=== PATIENT | female | born 1940 | race Caucasian/White ===

== ENCOUNTER → 2020-02-07 13:45 | Outpatient (BNVA) | payer MEDICARE, OTHER, SELFPAY | PROVIDERS: Family Provider Family Medicine; Visit Provider Family Medicine | DX: J11.1 Influenza due to unidentified influenza virus with other respiratory manifestations (principal) | CPT/HCPCS: 87804 ==

== ENCOUNTER 2020-08-09 19:45 | Emergency (ER) | payer MEDICARE, OTHER, SELFPAY ==
[2020-08-09 19:51] VITALS: BP 136/70; PULSE 90; RESP 17; O2SAT 95
--- NOTE | 2020-08-09 19:57 | CTR_ITS ---
PROCEDURE INFORMATION: Exam: CT Head Without Contrast Exam date and time: 08/09/2020 8:02 PM Age: 80 years old Clinical indication: Injury or trauma; Fall; Additional info: Head injury TECHNIQUE: Imaging protocol: Computed tomography of the head without contrast. Radiation optimization: All CT scans at this facility use at least one of these dose optimization techniques: automated exposure control; mA and/or kV adjustment per patient size (includes targeted exams where dose is matched to clinical indication); or iterative reconstruction. COMPARISON: No relevant prior studies available. RADIATION DOSE METRICS: Total DLP (mGy-cm): 1079.57 FINDINGS: Brain: Mild atrophy and mild white matter chronic microvascular changes are noted. No hemorrhage or CT evidence of acute infarction is seen. Ventricles: Normal. No ventriculomegaly. Bones/joints: Unremarkable. No acute fracture. Sinuses: Visualized sinuses are unremarkable. No fluid levels. Mastoid air cells: Visualized mastoid air cells are well aerated. Soft tissues: Small right parietal scalp hematoma is appreciated. CT/CT head wo con* [id number] IMPRESSION: No acute intracranial abnormality Radiation Dose CTDIVOL = (mGy): DLP = 1079.57 (mGy-cm)
--- NOTE | 2020-08-09 19:57 | CTR_ITS ---
PROCEDURE INFORMATION: Exam: CT Cervical Spine Without Contrast Exam date and time: 08/09/2020 8:02 PM Age: 80 years old Clinical indication: Injury or trauma; Fall; Initial encounter; Blunt trauma TECHNIQUE: Imaging protocol: Computed tomography images of the cervical spine without contrast. Radiation optimization: All CT scans at this facility use at least one of these dose optimization techniques: automated exposure control; mA and/or kV adjustment per patient size (includes targeted exams where dose is matched to clinical indication); or iterative reconstruction. COMPARISON: No relevant prior studies available. RADIATION DOSE METRICS: Total DLP (mGy-cm): 667 FINDINGS: Vertebrae: [id number] degenerative changes are observed in the cervical spine. No cervical spine fracture is seen. Spinal alignment is normal. Lungs: A 14 mm nodular density is seen in the superior segment of the left lower lobe (partially imaged). CT/CT cervical spin wo con* [id number] IMPRESSION: 1. No cervical spine fracture. 2. Partially imaged left lower lobe 14 mm nodule. Correlate with prior imaging if available, or consider nonemergent CT scan of the thorax for further evaluation. Radiation Dose CTDIVOL = (mGy): DLP = 667 (mGy-cm)
--- NOTE | 2020-08-09 20:01 | ED_ITS ---
HPI - Fall General: Chief Complaint: Fall Stated Complaint: FALL Time Seen by Provider: 08/09/20 19:58 Source: patient and EMS Mode of arrival: EMS Limitations: no limitations History of Present Illness: HPI Narrative: 80-year-old female is here by EMS after a fall. States she fell forward out of her chair and hit her head and has slight headache along with neck pain and right shoulder pain. Patient believes she may have had a seizure after she fell. States her pain is currently a 5 out of 10. MD complaint: fall Associated symptoms-after fall: Reports headache(s) and neck pain; Denies abdominal pain or chest pain Review of Systems Const: Denies: fever(s), chills, body aches or change in appetite Eyes: Denies: blurry vision or eye discomfort ENMT: Denies: throat pain or dental pain Card: Denies: chest pain Resp: Denies: dyspnea GI: Denies: abdominal pain, nausea, vomiting or diarrhea : Denies: dysuria Musc: Reports: neck pain and joint pain; Denies: back pain Skin/Breast: Denies: rash Neuro: Reports: headache(s) Psych: Denies: depression Chapo/Lymph: Denies: easy bruising All/Imm: Denies: urticaria PFSH ED PFSH: Social History (Updated 02/07/20 @ 13:43 by Veronica Kang LPN) Smoking and tobacco status: never smoked Physical Exam Const: COMMON NORMALS: no acute distress, patient oriented x3 and healthy appearing HENMT: COMMON NORMALS: normocephalic and atraumatic HEAD & SCALP: normocephalic and atraumatic Eye: COMMON NORMALS: Equal, round and reactive pupils present and EOMs intact bilaterally PUPIL: Yes Equal, round and reactive pupils present Neck/C-Spine: OTHER: c collar in place Chest: COMMONS NORMALS: normal inspection of the chest and normal palpation of entire chest wall Resp: COMMON NORMALS: normal respiratory effort, No retractions, No use of accessory muscles and clear to auscultation bilaterally AUSCULTATION: clear to auscultation bilaterally Cardio: COMMON NORMALS: regular rate, regular rhythm and No murmurs present (Cardio) RATE: regular rate RHYTHM: regular rhythm GI: COMMON NORMALS: Normal to inspection, nondistended, normoactive bowel sounds present, Soft to palpation, non-tender and no masses PALPATION: Yes Soft to palpation Extremity: COMMON NORMALS: normal to inspection NARRATIVE EXTREMITY EXAM: tenderness over right shoulder Neuro: COMMON NORMALS: patient oriented x3, moves all extremities and no focal motor deficits Psych: COMMON NORMALS: mental status grossly normal, Normal thought process present and cooperative THOUGHT PROCESS: Normal thought process present Skin: COMMON NORMALS: no rashes or lesions noted and no wounds GENERAL SKIN EXAM: no rashes or lesions noted Course Vital Signs: Vital signs: Vital Signs Pulse Rate 70 08/09/20 22:38 Respiratory Rate 16 08/09/20 22:38 Blood Pressure 147/93 08/09/20 22:38 Pulse Oximetry 94 08/09/20 22:38 MDM - Fall MDM Narrative: Medical decision making narrative: Patient presents here after a fall. Head CT along with shoulder x-ray and neck CT are all normal. She has no signs of fractures. Patient is stable for discharge. Patient was able to ambulate here. She is to follow-up with PCP she is to return if worsening. Lab Data: Labs: Lab Results 08/09/20 08/09/20 Range/Units 21:04 21:04 WBC 9.9 (4.0-10.0) 10^3/ uL RBC 4.45 (4.1-5.3) 10^6/u L Hgb 12.0 (11.5-15.3) g/dL Hct 39.8 (37.0-47.0) % MCV 89.4 (81-99) fL MCH 27.0 L (28.0-34.0) pg MCHC 30.2 (30.0-36.0) g/dL RDW 14.6 (12.1-15.1) % Plt Count 277 (130-400) 10^3/c mm MPV 9.2 (7.4-10.4) fL Neut % (Auto) 53.5 % Lymph % (Auto) 35.1 % [place] % (Auto) 6.1 % Eos % (Auto) 3.6 % Baso % (Auto) 0.6 % Neut # (Auto) 5.30 (1.8-7.7) 10^3/u L Lymph # (Auto) 3.5 (0.8-4.8) 10^3/u L [place] # (Auto) 0.6 (0.2-0.9) 10^3/u L Eos # (Auto) 0.4 (0.0-0.8) 10^3/u L Baso # (Auto) 0.1 (0.0-0.1) 10^3/u L Nucleated RBC % (a uto) 0 % Nucleated RBCs # 0.0 /100WBC Sodium 139 (136-145) mmol/L Potassium 3.7 (3.5-5.1) mmol/L Chloride 105 (98-107) mmol/L Carbon Dioxide 25 (22-29) mmol/L Anion Gap 12.7 (5-19) BUN 14 (8-23) mg/dL Creatinine 0.7 (0.5-0.9) mg/dL GFR Calculation Not Reportable Glucose 117 H (65-115) mg/dL Calculated Osmolal ity 285 (285-295) mOsm/k g Calcium 8.3 L (8.5-10.5) mg/dL Imaging Data^: CT Head: Radiologist's impression: [place] [address] CT Scan Report Signed Patient: Sil Diaz Unit #: [id number] : 1940 Age/Sex: 80 / F ADM Date: 08/09/20 Loc: ER Room/Bed: Attending Dr: Ordering Provider/Ordering MD: Ana Luisa Pérez MD Date of Service: 08/09/20 Procedure(s): CT head wo con* [id number] Accession Number(s): [id number] Report Number: [id number] PROCEDURE INFORMATION: Exam: CT Head Without Contrast Exam date and time: 08/09/2020 8:02 PM Age: 80 years old Clinical indication: Injury or trauma; Fall; Additional info: Head injury TECHNIQUE: Imaging protocol: Computed tomography of the head without contrast. Radiation optimization: All CT scans at this facility use at least one of these dose optimization techniques: automated exposure control; mA and/or kV adjustment per patient size (includes targeted exams where dose is matched to clinical indication); or iterative reconstruction. COMPARISON: No relevant prior studies available. RADIATION DOSE METRICS: Total DLP (mGy-cm): 1079.57 FINDINGS: Brain: Mild atrophy and mild white matter chronic microvascular changes are noted. No hemorrhage or CT evidence of acute infarction is seen. Ventricles: Normal. No ventriculomegaly. Bones/joints: Unremarkable. No acute fracture. Sinuses: Visualized sinuses are unremarkable. No fluid levels. Mastoid air cells: Visualized mastoid air cells are well aerated. Soft tissues: Small right parietal scalp hematoma is appreciated. CT/CT head wo con* [id number] IMPRESSION: No acute intracranial abnormality Other CT: Radiologist's impression: [address] [place] [address] CT Scan Report Signed Patient: Sil Diaz Unit #: [id number] : 1940 Age/Sex: 80 / F ADM Date: 08/09/20 Loc: ER Room/Bed: Attending Dr: Ordering Provider/Ordering MD: Ana Luisa Pérez MD Date of Service: 08/09/20 Procedure(s): CT cervical spin wo con* [id number] Accession Number(s): [id number] Report Number: [id number] PROCEDURE INFORMATION: Exam: CT Cervical Spine Without Contrast Exam date and time: 08/09/2020 8:02 PM Age: 80 years old Clinical indication: Injury or trauma; Fall; Initial encounter; Blunt trauma TECHNIQUE: Imaging protocol: Computed tomography images of the cervical spine without contrast. Radiation optimization: All CT scans at this facility use at least one of these dose optimization techniques: automated exposure control; mA and/or kV adjustment per patient size (includes targeted exams where dose is matched to clinical indication); or iterative reconstruction. COMPARISON: No relevant prior studies available. RADIATION DOSE METRICS: Total DLP (mGy-cm): 667 FINDINGS: Vertebrae: Bzbr-qu-yoplichq degenerative changes are observed in the cervical spine. No cervical spine fracture is seen. Spinal alignment is normal. Lungs: A 14 mm nodular density is seen in the superior segment of the left lower lobe (partially imaged). CT/CT cervical spin wo con* [id number] IMPRESSION: 1. No cervical spine fracture. 2. Partially imaged left lower lobe 14 mm nodule. Correlate with prior imaging if available, or consider nonemergent CT scan of the thorax for further evaluation. Discharge Plan Discharge Patient Disposition: Home Clinical Impression: Fall CHI (closed head injury) Qualifiers: Encounter type: initial encounter Qualified Code(s): S09.90XA - Unspecified injury of head, initial encounter Condition: Stable Prescriptions: New Robaxin-750 750 mg tablet 750 mg PO Q6H Qty: 30 RF: 0 Naprosyn 500 mg tablet 500 mg PO BID PRN (Reason: pain) Qty: 20 RF: 0 No Action clopidogrel [Plavix] 75 mg tablet 75 mg PO DAILY RF: 0 atorvastatin 40 mg tablet 40 mg PO QPM RF: 0 citalopram 40 mg tablet 40 mg PO DAILY RF: 0 pantoprazole 40 mg tablet,delayed release (DR/EC) 40 mg PO DAILY RF: 0 lisinopril 30 mg tablet 30 mg PO DAILY RF: 0 Discharge Orders: Discharge Order (Routine); Ordered 08/09/20 Ordered By: Ana Luisa Pérez Referrals: Rios Anaya, [Primary Care Provider] - 1-3 days Discharge Diet: Advance as tolerated Discharge Activity: Resume usual activity Patient Instructions: Minor Head Injury (ED) Discharge Date/Time: 08/09/20 22:39 Coding Level of Care Code ED Stone Setter for Marialuisa Fwd Exam Comprehensive
--- NOTE | 2020-08-09 20:10 | XR_ITS ---
WS: [id number] Right shoulder, 4 views, 08/09/2020 Clinical Data: fall Comparison: None. Findings: No fractures or dislocations are seen. The AC joint shows minimal osteoarthritis.. The adjacent right clavicle, right scapula and ribs are normal. There is interstitial change throughout the right lung which is probably vascular but could be chronic lung fibrosis. There are synovial calcifications rosa cent to the proximal medial humerus.. XR/XR shoulder RT min 2V* [id number] Impression: Negative for fracture or dislocation.
--- NOTE | 2020-08-09 20:10 | XR_ITS ---
WS: [id number] Portable AP upright chest, 08/09/2020 Clinical Data: fall Comparison: PA and lateral chest, 06/05/2010. Findings: The pulmonary vascularity is increased. The heart is normal. There is a 1 cm nodule in the left upper lobe overlying the left fifth rib. The aortic arch and descending aorta show calcification and tortuosity. No pneumonia or pneumothorax is seen. XR/XR chest 1V portable [id number] Impression: 1. 1.0 cm left upper lobe nodule and recommend follow-up PA and lateral chest a nd possible CT scan of the chest. 2. Increased pulmonary vascular congestion. 3. Atherosclerosis.
--- NOTE | 2020-08-09 20:13 | ECG_ITS ---
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 Measurements Intervals [place] Rate: 66 P: 43 CT: 143 QRS: 29 QRSD: 103 T: 48 QT: 417 QTc: 440 Interpretive Statements SINUS RHYTHM No previous ECG available for comparison Electronically Signed On 08-10-2020 14:59:19 CDT by Bernard Wakefield M.D. [id number]
[2020-08-09 20:15] VITALS: BP 138/74; RESP 16; O2SAT 95
[2020-08-09 21:09] LABS: Basophils # 0.1 10^3/uL (0.0-0.1); Basophils % 0.6 %; Eosinophils # 0.4 10^3/uL (0.0-0.8); Eosinophils % 3.6 %; Hematocrit 39.8 % (37.0-47.0); Lymphocytes # 3.5 10^3/uL (0.8-4.8); Lymphocytes % 35.1 %; Mean Corpuscular HGB Conc 30.2 g/dL (30.0-36.0); Mean Corpuscular Volume 89.4 fL (81-99); Mean Platelet Volume 9.2 fL (7.4-10.4); Monocytes # 0.6 10^3/uL (0.2-0.9); Monocytes % 6.1 %; Neutrophils % 53.5 %; Nucleated Red Blood Cells % 0 %; Platelet Count 277 10^3/cmm (130-400); Red Blood Count 4.45 10^6/uL (4.1-5.3); Red Cell Distribution Width 14.6 % (12.1-15.1); White Blood Count 9.9 10^3/uL (4.0-10.0)
[2020-08-09 21:26] LABS: Anion Gap 12.7 (5-19); Blood Urea Nitrogen 14 mg/dL (8-23); Calcium 8.3 mg/dL (8.5-10.5); Carbon Dioxide 25 mmol/L (22-29); Chloride 105 mmol/L (98-107); Glucose 117 mg/dL (65-115); Osmolality Calculated 285 mOsm/kg (285-295); Potassium 3.7 mmol/L (3.5-5.1); Sodium 139 mmol/L (136-145)
--- NOTE | 2020-08-09 21:48 | PC.NURSE ---
AMBULATED PT IN [place] WITH SBA. PT TOLERATES WELL.
[2020-08-09 22:38] VITALS: BP 147/93; PULSE 70; RESP 16; O2SAT 94
== END 2020-08-09 22:39 | disposition home or self-care (01) ==
PROVIDERS: Emergency Provider Emergency Medicine; PCP Family Medicine
DX: S09.8XXA Other specified injuries of head, initial encounter (principal); Z79.02 Long term (current) use of antithrombotics/antiplatelets; W07.XXXA Fall from chair, initial encounter
CPT/HCPCS: 12345; 70450; 71045; 72125; 73030; 80048; 85025; 93005; 99282; 99283

== ENCOUNTER 2021-03-28 19:33 | Observation (INO) | payer MEDICARE, SELFPAY ==
[2021-03-28 20:15] VITALS: BP 134/71; PULSE 81; RESP 18; TEMP 36.7; O2SAT 90; BMI 26.9
--- NOTE | 2021-03-28 21:10 | XRR_ITS ---
PROCEDURE INFORMATION: Exam: XR Chest Exam date and time: 03/28/2021 9:24 PM Age: 81 years old Clinical indication: Cough and fever and shortness of breath; Additional info: SOB TECHNIQUE: Imaging protocol: XR of the chest. Views: 1 view. COMPARISON: ME XR chest 1V portable [id number] 08/09/2020 8:26 PM FINDINGS: Lungs: There is an 11 mm mildly irregular nodularity seen in the left upper hemithorax similar to that seen previously on 08/09/2020. There there is a background pulmonary fibrosis. Additionally, there are patchy opacities present in the lung bases bilaterally and along the right lateral chest wall, findings that may represent a superimposing patchy pneumonia. Pleural spaces: Unremarkable. No pleural effusion. No pneumothorax. Heart/Mediastinum: Unremarkable. No cardiomegaly. Bones/joints: Unremarkable. XR/XR chest 1V portable [id number] IMPRESSION: 1. Probable bilateral basilar infiltrates and pneumonia superimposed over a background of pulmonary fibrosis. Patchy opacity seen in the right lateral hemithorax likely represents infiltrate and pneumonia as well. 2. Irregular nodularity seen in the left upper hemithorax similar to that seen on 08/09/2020. Follow-up CT evaluation is suggested when the patient's acute symptoms have resolved.
--- NOTE | 2021-03-28 21:11 | ECG_ITS ---
[facility] Test Date: 2021-03-28 Pat Name: Sil Diaz Department: Room: Gender: Female Cellophaner: : 1940 Requested By: Maria Antonia Caraballo Order Number: [id number] Terry MD: Bernard Wakefield M.D. Measurements Intervals [place] Rate: 74 P: 21 WV: 125 QRS: 32 QRSD: 106 T: 53 QT: 394 QTc: 438 Interpretive Statements SINUS RHYTHM Compared to ECG 08/09/2020 20:49:52 No significant changes Electronically Signed On 03-29-2021 19:15:44 CDT by Bernard Wakefield M.D. [id number]
[2021-03-28 21:47] VITALS: BP 131/71; PULSE 77; RESP 21; O2SAT 91
--- NOTE | 2021-03-28 21:56 | PC.NURSE ---
patient placed on 2 liters oxygen to maintain spo2 greater than 91%.
[2021-03-28 22:04] LABS: Basophils # 0.1 10^3/uL (0.0-0.1); Basophils % 0.4 %; Eosinophils % 0.1 %; Hematocrit 38.7 % (37.0-47.0); Hemoglobin 11.8 g/dL (11.5-15.3); Lymphocytes # 4.5 10^3/uL (0.8-4.8); Mean Corpuscular HGB Conc 30.5 g/dL (30.0-36.0); Mean Corpuscular Hemoglobin 26.9 pg (28.0-34.0); Mean Corpuscular Volume 88.2 fL (81-99); Mean Platelet Volume 9.1 fL (7.4-10.4); Monocytes # 1.1 10^3/uL (0.2-0.9); Monocytes % 6.8 %; Neutrophils # 10.25 10^3/uL (1.8-7.7); Neutrophils % 64.3 %; Nucleated Red Blood Cells % 0 %; Platelet Count 308 10^3/cmm (130-400); Red Blood Count 4.39 10^6/uL (4.1-5.3); Red Cell Distribution Width 15.2 % (12.1-15.1)
[2021-03-28 22:20] LABS: Alanine Aminotransferase 9 U/L (0-33); Albumin Level 3.7 g/dL (3.5-5.2); Alkaline Phosphatase 134 IU/L (35-105); Anion Gap 16.7 (5-19); Aspartate Amino Transferase 9 U/L (0-32); Blood Urea Nitrogen 14 mg/dL (8-23); Calcium 8.1 mg/dL (8.5-10.5); Carbon Dioxide 23 mmol/L (22-29); Chloride 100 mmol/L (98-107); Globulin 3.8 g/dL (1.3-4.6); Glucose 114 mg/dL (65-115); Osmolality Calculated 283 mOsm/kg (285-295); Potassium 3.7 mmol/L (3.5-5.1); Sodium 136 mmol/L (136-145); Total Bilirubin 0.7 mg/dL (0.15-1.2); Total Protein 7.5 g/dL (6.6-8.7); Troponin(5th) Baseline 13 ng/L (0-10)
[2021-03-28 22:26] LABS: Add Urine Microscopic? YES; Bilirubin Urine 1+ (Negative); Blood Urine 3+ (Negative); Glucose Urine UA Norm (Normal); Ketones Urine 1+ (Negative); Leukocyte Esterase Urine 2+ (Negative); Nitrate Urine Positive (Negative); Protein Urine 1+ (Negative); Urine Appearance Hazy (CLEAR); Urine Color Yellow (Yellow); Urobilinogen Urine 4 mg/dL (Negative); pH Urine 5 (5-7)
[2021-03-28 22:27] LABS: Add Urine Culture? Yes; Bacteria Urine 4+ /hpf; RBC Urine 0-4 /hpf (0-2); WBC Urine >100 /hpf (0-5)
[2021-03-28] MEDS: cefTRIAXone 1,000 MG in sodium chloride 0.9% (plus) 50 ML 100 MG IV (22:45)
[2021-03-28 22:46] VITALS: BP 109/64; PULSE 71; RESP 19; O2SAT 94
[2021-03-28] MEDS: azithromycin 250 mg Tablet 500 MG PO (23:07)
[2021-03-28 23:09] VITALS: BP 117/66; PULSE 72; RESP 18; O2SAT 95
--- NOTE | 2021-03-28 23:10 | ED_ITS ---
HPI - SOB/Dyspnea General: Chief Complaint: Shortness of Breath/Dyspnea Stated Complaint: difficulty breathing/fever Time Seen by Provider: 03/28/21 21:43 Source: patient Mode of arrival: ambulatory Limitations: no limitations History of Present Illness: HPI Narrative: 81-year-old female with complaints of cough, fever, weakness and shortness of breath for the last 2 weeks. De creased appetite, general malaise. No nausea or vomiting. She lives with her daughter who cares for her. She has a history of asthma. No sick contacts. She has not been tested for Covid yet. She does have some pain with coughing, Pertinent past history: asthma Associated symptoms: Reports diaphoresis, fever(s) and orthopnea; Deny abdominal pain, extremity pain, nausea, polydipsia, polyuria or vomiting Review of Systems General: Reports: 10 or more systems reviewed and unremarkable except in HPI and below Const: Reports: fever(s), chills, body aches, change in appetite, fatigue, malaise, night sweats and diaphoresis ENMT: Denies: throat pain Card: Reports: dyspnea on exertion and orthopnea; Denies: edema or swelling of feet/ankles Resp: Reports: dyspnea, productive cough and wheezing GI: Denies: abdominal pain, nausea or vomiting : Reports: urinary frequency; Denies: difficulty voiding or dysuria Musc: Denies: neck pain, back pain, extremity pain or extremity swelling Neuro: Denies: headache(s), numbness in extremities or weakness in extremities Endo: Denies: polyuria, polydipsia or tired all the time Chapo/Lymph: Denies: easy bruising or easy bleeding [facility] ED PFSH: Medical History Cat bite CVA (cerebral vascular accident) Dyslipidemia GERD (gastroesophageal reflux disease) HTN (hypertension) Surgical History H/O lumbar discectomy Family History Other Family history non-contributory Social History Smoking and tobacco status: never smoked Alcohol intake: never Substance/Drug Use: never Housing: House Physical Exam Const: COMMON NORMALS: patient oriented x3 GENERAL APPEARANCE: ill appearing and frail appearing; not diaphoretic and no odor of alcohol detected NUTRITIONAL APPEARANCE: thin HENMT: COMMON NORMALS: normocephalic and atraumatic HEAD & SCALP: normocephalic and atraumatic Eye: COMMON NORMALS: Equal, round and reactive pupils present, EOMs intact bilaterally, conjunctivae normal and no scleral icterus CONJUNCTIVA: Yes conjunctivae normal PUPIL: Yes Equal, round and reactive pupils present Neck/C-Spine: COMMON NORMALS: full ROM, no lymphadenopathy and supple Resp: EFFORT & INSPECTION: Yes tachypneic, Yes Actively coughing and No tracheal deviation AUSCULTATION: rhonchi and wheezes GI: COMMON NORMALS: Normal to inspection, nondistended, normoactive bowel sounds present, Soft to palpation, non-tender and No hepatosplenomegaly present PALPATION: Yes Soft to palpation and Yes No hepatosplenomegaly present Extremity: COMMON NORMALS: normal to inspection, full ROM and capillary refill normal Neuro: COMMON NORMALS: patient oriented x3, CN's II-XII intact bilaterally, moves all extremities and no focal motor deficits Skin: COMMON NORMALS: no rashes or lesions noted, no wounds and turgor normal GENERAL SKIN EXAM: no rashes or lesions noted and turgor normal Course Vital Signs: Vital signs: Vital Signs Temperature 98.0 F 03/29/21 04:00 Pulse Rate 64 03/29/21 04:00 Respiratory Rate 18 03/29/21 04:00 Blood Pressure 103/66 03/29/21 04:00 Pulse Oximetry 92 03/29/21 04:00 MDM - SOB/Dyspnea MDM Narrative: Medical decision making narrative: 81-year-old female with pneumonia and urinary tract infection, acute hypoxia requiring supplemental oxygen. Covid swab negative. IV Rocephin, p.o. Zithromax, DuoNeb treatments, Does not require supplemental 02 at baseline. Discussed the case with Dr Ott. She will be admitted for IV antibiotics and weaning off oxygen. Differential Diagnosis: Shortness of Breath Differential Diagnosis: Likely acute exacerbation of chronic obstructive airways disease and community acquired pneumonia Medical Records: Attestation: I reviewed the patient's medical records. Lab Data: Attestation: I reviewed the patient's lab results. Labs: Lab Results 0403/28/21 03/28/21 Range/Units 21:46 21:54 21:54 WBC 16.0 H (4.0-10.0) 10^3/ uL RBC 4.39 (4.1-5.3) 10^6/u L Hgb 11.8 (11.5-15.3) g/dL Hct 38.7 (37.0-47.0) % MCV 88.2 (81-99) fL MCH 26.9 L (28.0-34.0) pg MCHC 30.5 (30.0-36.0) g/dL RDW 15.2 H (12.1-15.1) % Plt Count 308 (130-400) 10^3/c mm MPV 9.1 (7.4-10.4) fL Neut % (Auto) 64.3 % Lymph % (Auto) 28.0 % Hendry % (Auto) 6.8 % Eos % (Auto) 0.1 % Baso % (Auto) 0.4 % Neut # (Auto) 10.25 H (1.8-7.7) 10^3/u L Lymph # (Auto) 4.5 (0.8-4.8) 10^3/u L Hendry # (Auto) 1.1 H (0.2-0.9) 10^3/u L Eos # (Auto) 0.0 (0.0-0.8) 10^3/u L Baso # (Auto) 0.1 (0.0-0.1) 10^3/u L Nucleated RBC % (a uto) 0 % Nucleated RBCs # 0.0 /100WBC Sodium 136 (136-145) mmol/L Potassium 3.7 (3.5-5.1) mmol/L Chloride 100 (98-107) mmol/L Carbon Dioxide 23 (22-29) mmol/L Anion Gap 16.7 (5-19) BUN 14 (8-23) mg/dL Creatinine 0.7 (0.5-0.9) mg/dL GFR Calculation Not Reportable Glucose 114 (65-115) mg/dL Calculated Osmolal ity 283 L (285-295) mOsm/k g Lactate (0.5-2.2) mmol/L Calcium 8.1 L (8.5-10.5) mg/dL Total Bilirubin 0.7 (0.15-1.2) mg/dL AST 9 (0-32) U/L ALT 9 (0-33) U/L Alkaline Phosphata se 134 H (35-105) IU/L Troponin T Baselin e (0-10) ng/L Troponin T 120 Min squaxin (0-10) ng/L Delta Troponin T (0-10) ABS# Total Protein 7.5 (6.6-8.7) g/dL Albumin 3.7 (3.5-5.2) g/dL Globulin 3.8 (1.3-4.6) g/dL Urine Color Yellow (Yellow) Urine Appearance Hazy A (CLEAR) Urine pH 5 (5-7) Ur Specific Gravit y 1.020 (1.005-1.030) Urine Protein 1+ H (Negative) Urine Glucose (UA) Norm (Normal) Urine Ketones 1+ H (Negative) Urine Blood 3+ H (Negative) Urine Nitrate Positive H (Negative) Urine Bilirubin 1+ H (Negative) Urine Urobilinogen 4 H (Negative) mg/dL Ur Leukocyte Makenzie ase 2+ H (Negative) Urine RBC 0-4 H (0-2) /hpf Urine WBC >100 H (0-5) /hpf Ur Squamous Epith Cells 5-10 H (0-5) /hpf Amorphous Sediment Not Reportable Urine Bacteria 4+ H (NONE) /hpf SARS-CoV-2 Ag (Rap id) (Negative) 03/28/21 03/28/21 03/28/21 Range/Units 21:54 21:54 22:43 WBC (4.0-10.0) 10^3/ uL RBC (4.1-5.3) 10^6/u L Hgb (11.5-15.3) g/dL Hct (37.0-47.0) % MCV (81-99) fL MCH (28.0-34.0) pg MCHC (30.0-36.0) g/dL RDW (12.1-15.1) % Plt Count (130-400) 10^3/c mm MPV (7.4-10.4) fL Neut % (Auto) % Lymph % (Auto) % Hendry % (Auto) % Eos % (Auto) % Baso % (Auto) % Neut # (Auto) (1.8-7.7) 10^3/u L Lymph # (Auto) (0.8-4.8) 10^3/u L Hendry # (Auto) (0.2-0.9) 10^3/u L Eos # (Auto) (0.0-0.8) 10^3/u L Baso # (Auto) (0.0-0.1) 10^3/u L Nucleated RBC % (a uto) % Nucleated RBCs # /100WBC Sodium (136-145) mmol/L Potassium (3.5-5.1) mmol/L Chloride (98-107) mmol/L Carbon Dioxide (22-29) mmol/L Anion Gap (5-19) BUN (8-23) mg/dL Creatinine (0.5-0.9) mg/dL GFR Calculation Glucose (65-115) mg/dL Calculated Osmolal ity (285-295) mOsm/k g Lactate 1.0 (0.5-2.2) mmol/L Calcium (8.5-10.5) mg/dL Total Bilirubin (0.15-1.2) mg/dL AST (0-32) U/L ALT (0-33) U/L Alkaline Phosphata se (35-105) IU/L Troponin T Baselin e 13 H (0-10) ng/L Troponin T 120 Min squaxin (0-10) ng/L Delta Troponin T (0-10) ABS# Total Protein (6.6-8.7) g/dL Albumin (3.5-5.2) g/dL Globulin (1.3-4.6) g/dL Urine Color (Yellow) Urine Appearance (CLEAR) Urine pH (5-7) Ur Specific Gravit y (1.005-1.030) Urine Protein (Negative) Urine Glucose (UA) (Normal) Urine Ketones (Negative) Urine Blood (Negative) Urine Nitrate (Negative) Urine Bilirubin (Negative) Urine Urobilinogen (Negative) mg/dL Ur Leukocyte Makenzie ase (Negative) Urine RBC (0-2) /hpf Urine WBC (0-5) /hpf Ur Squamous Epith Cells (0-5) /hpf Amorphous Sediment Urine Bacteria (NONE) /hpf SARS-CoV-2 Ag (Rap id) Negative (Negative) 03/28/21 Range/Units 23:41 WBC (4.0-10.0) 10^3/ uL RBC (4.1-5.3) 10^6/u L Hgb (11.5-15.3) g/dL Hct (37.0-47.0) % MCV (81-99) fL MCH (28.0-34.0) pg MCHC (30.0-36.0) g/dL RDW (12.1-15.1) % Plt Count (130-400) 10^3/c mm MPV (7.4-10.4) fL Neut % (Auto) % Lymph % (Auto) % Hendry % (Auto) % Eos % (Auto) % Baso % (Auto) % Neut # (Auto) (1.8-7.7) 10^3/u L Lymph # (Auto) (0.8-4.8) 10^3/u L Hendry # (Auto) (0.2-0.9) 10^3/u L Eos # (Auto) (0.0-0.8) 10^3/u L Baso # (Auto) (0.0-0.1) 10^3/u L Nucleated RBC % (a uto) % Nucleated RBCs # /100WBC Sodium (136-145) mmol/L Potassium (3.5-5.1) mmol/L Chloride (98-107) mmol/L Carbon Dioxide (22-29) mmol/L Anion Gap (5-19) BUN (8-23) mg/dL Creatinine (0.5-0.9) mg/dL GFR Calculation Glucose (65-115) mg/dL Calculated Osmolal ity (285-295) mOsm/k g Lactate (0.5-2.2) mmol/L Calcium (8.5-10.5) mg/dL Total Bilirubin (0.15-1.2) mg/dL AST (0-32) U/L ALT (0-33) U/L Alkaline Phosphata se (35-105) IU/L Troponin T Baselin e (0-10) ng/L Troponin T 120 Min squaxin 11.52 H (0-10) ng/L Delta Troponin T -1.48 L (0-10) ABS# Total Protein (6.6-8.7) g/dL Albumin (3.5-5.2) g/dL Globulin (1.3-4.6) g/dL Urine Color (Yellow) Urine Appearance (CLEAR) Urine pH (5-7) Ur Specific Gravit y (1.005-1.030) Urine Protein (Negative) Urine Glucose (UA) (Normal) Urine Ketones (Negative) Urine Blood (Negative) Urine Nitrate (Negative) Urine Bilirubin (Negative) Urine Urobilinogen (Negative) mg/dL Ur Leukocyte Makenzie ase (Negative) Urine RBC (0-2) /hpf Urine WBC (0-5) /hpf Ur Squamous Epith Cells (0-5) /hpf Amorphous Sediment Urine Bacteria (NONE) /hpf SARS-CoV-2 Ag (Rap id) (Negative) EKG Data^: EKG 1: Attestation: I personally reviewed and interpreted this EKG as follows: EKG Interpretation Date: 03/28/21 EKG interpretation time: 21:55 Interpretation: Normal sinus rhythm with a rate of 74, AL 125, QRS 106, QTc 421, normal axis. No ST segment elevation or depression. 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
--- NOTE | 2021-03-28 23:11 | ECG_ITS ---
[facility] Test Date: 2021-03-28 Pat Name: Sil Diaz Department: Room: Gender: Female Counter Server: : 1940 Requested By: Maria Antonia Caraballo Order Number: [id number] Terry MD: Bernard Wakefield M.D. Measurements Intervals [place] Rate: 66 P: 15 MI: 136 QRS: 18 QRSD: 102 T: 45 QT: 418 QTc: 439 Interpretive Statements SINUS RHYTHM WITH SINUS ARRHYTHMIA Compared to ECG 03/28/2021 21:52:27 No significant changes Electronically Signed On 03-29-2021 19:18:54 CDT by Bernard Wakefield M.D. [id number]
[2021-03-28 23:17] LABS: SARS Covid-2 Antigen Negative (Negative)
[2021-03-29] VITALS (19 sets, daily range): BP systolic 99–145; BP diastolic 54–79; PULSE 63–87; RESP 16–24; TEMP 36.7–37.2; O2SAT 88–100
[2021-03-29 00:04] LABS: Troponin 5 2HR 11.52 ng/L (0-10)
[2021-03-29 00:06] LABS: Troponin 5 2HR Delta -1.48 ABS# (0-10)
--- NOTE | 2021-03-29 00:48 | P.HP_ITS ---
Providers/Chief Complaint Primary Care Provider: Rios Anaya DO Chief Complaint: difficulty breathing/fever History of Present Illness Sil Diaz is a 81 year old female who presented today with chief complaint of shortness of breath. Patient is stating that her symptoms started 2 weeks ago, she has been experiencing productive cough, bringing up greenish sputum, she also noticed fever 101 last week, no diarrhea however endorsing urinary urgency and frequency. She does inhale vap. No use of alcohol, denies smoking. She does not use any oxygen at home, her symptoms have been gradually getting worse and today she decided to come to the hospital for worsening of shortness of breath. She is denying chest pain, diarrhea, headache, vomiting or nausea. Diagnostics in the ER revealed sepsis secondary to right-sided lower lobe pneumonia and UTI she has been given ceftriaxone and azithromycin ABG revealed hypoxia on 2 L nasal cannula Chest x-ray consistent with left pulmonary nodule and pneumonia along fibrotic changes Review of Systems Const: Reports: fever(s), chills, body aches, change in appetite and fatigue Eyes: Denies: change in vision ENMT: Denies: throat pain Card: Reports: dyspnea on exertion; Denies: chest pain Resp: Reports: dyspnea and productive cough GI: Denies: abdominal pain : Reports: urinary frequency, urinary urgency, dribbling and nocturia; Denies: flank pain Musc: Denies: neck pain Skin/Breast: Denies: rash Neuro: Denies: headache(s) Psych: Denies: anxiety Endo: Reports: polyuria Chapo/Lymph: Denies: easy bruising All/Imm: Denies: urticaria Medications/Allergies Home Medications Medication Instructions Recorded Confirmed Last Taken Type clopidogrel 75 mg tablet 75 mg PO DAILY 02/07/20 08/09/20 08/08/20 History atorvastatin 40 mg PO QPM 08/09/20 08/09/20 08/08/20 History citalopram 40 mg PO DAILY 08/09/20 08/09/20 08/08/20 History lisinopril 30 mg PO DAILY 08/09/20 08/09/20 08/08/20 History methocarbamol [Robaxin-750] 750 mg PO Q6H #30 tab 08/09/20 Unknown Rx naproxen [Naprosyn] 500 mg PO BID PRN #20 tab 08/09/20 Unknown Rx pantoprazole 40 mg PO DAILY 08/09/20 08/09/20 08/08/20 History Allergies Allergy/AdvReac Type Severity Reaction Status Date / Time Sulfa (Sulfonamide Allergy RASH Verified 08/09/20 20:53 Antibiotics) PFSH Acute PFSH: Medical History Cat bite CVA (cerebral vascular accident) Dyslipidemia GERD (gastroesophageal reflux disease) HTN (hypertension) Surgical History H/O lumbar discectomy Family History Other Family history non-contributory Social History Smoking and tobacco status: never smoked Alcohol intake: never Substance/Drug Use: never Housing: House Vitals/I&O/Wt Last Vital Signs Temp 98.0 F 03/28/21 20:15 Pulse 72 03/28/21 23:09 Resp 18 03/28/21 23:09 BP 117/66 03/28/21 23:09 Pulse Ox 95 03/28/21 23:09 03/28/21 03/28/21 03/29/21 14:59 22:59 06:59 Intake Total 50 / 50 Balance 50 / 50 Weight last 48 hrs Weight 62.596 kg Physical Exam Narrative: EXAM NARRATIVE: elderly female Was saturating well on 4 L nasal cannula No active chest pain shortness of breath abdominal pain Alert, awake oriented x3 GCS 15 No neurological deficit S1, S2 no murmur appreciated Bilateral breath sounds with rhonchi and crepitations, worse at the base Lower extremity no edema gangrene or ulcer Abdomen soft nontender Appropriate mood and affect Very pleasant during my evaluation Data : 03/28/21 21:54 03/28/21 21:54 A&P Assessment and plan (1) CAP (community acquired pneumonia): Status: Acute (2) UTI (urinary tract infection): Status: Acute (3) Acute respiratory failure with hypoxia: Status: Acute Additional A&P Information Sepsis secondary to pneumonia Criteria met with tachypnea, leukocytosis, We will start her on ceftriaxone and azithromycin requested blood culture, urine culture and urine antigens We will keep her on DuoNeb and 4 L nasal cannula oxygen supplementation for now Will need home O2 evaluation before discharge Chest x-ray consistent with fibrotic changes, left-sided pulmonary nodule has extensive smoking history, currently using vape, 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, COVID-19 antigen negative, malignancy not ruled out UTI Patient endorsing urinary frequency and urgency Currently on ceftriaxone Abnormal UA reviewed Creatinine normal Acute hypoxic respiratory failure Secondary to pneumonia with underlying fibrosis Home O2 evaluation, DuoNeb every 4 hours as needed Currently saturating well on 4 L nasal cannula Patient was counseled to quit vaping Full code Cardiac diet DVT prophylaxis Lovenox Attestations Medical Necessity Statement*: Anticipating stay in the hospital cross less than 2 midnights for UTI, sepsis and pneumonia Time Spent in Patient Care: 35mins Coding Level of Care Code 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
[2021-03-29 01:11] LABS: ABG PCO2 36.8 mmHg (35-45); ABG PH Result 7.43 (7.35-7.45); Alveolar-Arterial Oxygen Gradi 11.5 mmHg (5-10); Arterial Blood Gas Hematocrit 34.4 % (37-47); Base Excess ABG 0.1 mmol/L (-2.0-2.0); Blood Gas Allen Test Pos; Blood Gas Sample Site Radial, right; Blood Gas Sample Type Arterial; Carboxyhemoglobin 0.8 %THgb (0.4-20.1); HCO3 ABG 24.2 mmol/L (22-26); HGB O2 Sat 91.9 % (95-100); Ionized Calcium Level - ABG 1.1 mmol/L (1.1-1.4); Methemoglobin 0.4 % (0.4-1.5); Oxygen Device NC; PO2 ABG 65.8 mmHg (80.0-100.0); Potassium Level - ABG 3.6 mmol/L (3.5-5.0); Total Hemoglobin 11.2 g/dL (12-16)
[2021-03-29] MEDS: ipratropium-albuterol 3 mL Neb INHALATION ×4 (01:24→20:45)
[2021-03-29 02:49] LABS: Basophils # 0.1 10^3/uL (0.0-0.1); Basophils % 0.4 %; Eosinophils # 0.1 10^3/uL (0.0-0.8); Eosinophils % 0.4 %; Hematocrit 35.5 % (37.0-47.0); Hemoglobin 10.8 g/dL (11.5-15.3); Lymphocytes # 5.2 10^3/uL (0.8-4.8); Lymphocytes % 38.1 %; Mean Corpuscular HGB Conc 30.4 g/dL (30.0-36.0); Mean Corpuscular Hemoglobin 27.3 pg (28.0-34.0); Mean Corpuscular Volume 89.6 fL (81-99); Mean Platelet Volume 9.1 fL (7.4-10.4); Monocytes # 0.9 10^3/uL (0.2-0.9); Monocytes % 6.5 %; Neutrophils # 7.45 10^3/uL (1.8-7.7); Neutrophils % 54.1 %; Nucleated Red Blood Cells % 0 %; Platelet Count 287 10^3/cmm (130-400); Red Blood Count 3.96 10^6/uL (4.1-5.3); White Blood Count 13.8 10^3/uL (4.0-10.0)
[2021-03-29 03:07] LABS: Troponin 5 6HR 13.04 ng/L (0-10); Troponin 5 6HR Delta 0.04 ng/L (0-12)
--- NOTE | 2021-03-29 03:11 | ECG_ITS ---
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 Measurements Intervals [place] Rate: 67 P: 23 AR: 138 QRS: 46 QRSD: 98 T: 57 QT: 409 QTc: 433 Interpretive Statements SINUS RHYTHM Compared to ECG 03/28/2021 23:36:29 Sinus arrhythmia no longer present Electronically Signed On 04-07-2021 12:30:00 CDT by Steffi Cuevas M.D. [email or web address] [email or web address]/[id number]
[2021-03-29] MEDS: enoxaparin 40 mg/0.4 mL Syringe SUBCUT (05:34)
[2021-03-29] MEDS: lisinopril 10 mg Tablet 30 MG PO (08:31)
[2021-03-29] MEDS: pantoprazole DR 40 mg Tablet PO (08:31)
[2021-03-29] MEDS: clopidogrel 75 mg Tablet PO (08:31)
--- NOTE | 2021-03-29 15:10 | PM.PN ---
Vitals/I&O/Wt Last Vital Signs Temp 98.7 F 03/29/21 11:59 Pulse 73 03/29/21 11:59 Resp 17 03/29/21 11:59 BP 145/79 03/29/21 11:59 Pulse Ox 93 03/29/21 11:59 03/29/21 03/29/21 03/29/21 06:59 14:59 22:59 Intake Total 110 / 110 480 / 480 Output Total 300 / 300 Balance 110 / 110 180 / 180 Weight last 48 hrs Weight 62.596 kg Physical Exam Const: COMMON NORMALS: patient oriented x3 HENMT: COMMON NORMALS: normocephalic and atraumatic HEAD & SCALP: normocephalic and atraumatic Chest: CHEST: Yes Symmetrical chest wall rise Resp: EFFORT & INSPECTION: Yes symmetric chest movement OTHER: Bilateral wheezing, bilateral rhonchi, fine inspiratory crackles present in both lung styles Cardio: COMMON NORMALS: regular rate, regular rhythm, S1 normal heart sound present and S2 normal heart sound present RATE: regular rate RHYTHM: regular rhythm HEART SOUNDS: S1 normal heart sound present and S2 normal heart sound present OTHER: Ejection systolic murmur present in right second intercostal space GI: COMMON NORMALS: Normal to inspection, nondistended, normoactive bowel sounds present, Soft to palpation, non-tender, No hepatosplenomegaly present and no masses AUSCULTATION: Yes normoactive bowel sounds PALPATION: Yes Soft to palpation and Yes No hepatosplenomegaly present RECTAL EXAM: deferred Extremity: COMMON NORMALS: no clubbing, cyanosis or edema and no pedal edema Neuro: COMMON NORMALS: patient oriented x3 Data : 03/29/21 02:32 03/28/21 21:54 Micro: Microbiology 03/29/21 02:32 Blood Culture - Preliminary Blood SPECIMEN COLLECTED 03/29/21 02:30 Blood Culture - Preliminary Blood SPECIMEN COLLECTED 03/28/21 21:46 Legionella Urinary Antigen - Final Urine,Voided Bacterial Antigens - Final A&P Assessment and plan (1) CAP (community acquired pneumonia): Patient came in with worsening shortness of breath, cough, fever, increasing oxygen requirement , do not use supplemental oxygen at home, currently she is requiring 4 Ls oxygen through nasal cannula. Continue ceftriaxone and azithromycin. Status: Acute Qualifiers: Laterality: unspecified laterality Qualified Code(s): J18.9 - Pneumonia, unspecified organism (2) Sepsis: Sepsis secondary to pneumonia: Blood culture: Urine Legionella antigen: Negative Urine bacterial antigen: Negative Lactic acid:1.0 Procalcitonin: Status: Acute (3) UTI (urinary tract infection): Status: Acute Qualifiers: Hematuria presence: with hematuria Urinary tract infection type: site unspecified Qualified Code(s): N39.0 - Urinary tract infection, site not specified; R31.9 - Hematuria, unspecified (4) Acute respiratory failure with hypoxia: Status: Acute Additional A&P Information Sepsis secondary to pneumonia Criteria met with tachypnea, leukocytosis, We will start her on ceftriaxone and azithromycin requested blood culture, urine culture and urine antigens We will keep her on DuoNeb and 4 L nasal cannula oxygen supplementation for now Will need home O2 evaluation before discharge Chest x-ray consistent with fibrotic changes, left-sided pulmonary nodule has extensive smoking history, currently using vape, 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, COVID-19 antigen negative, malignancy not ruled out UTI Patient endorsing urinary frequency and urgency Currently on ceftriaxone Abnormal UA reviewed Creatinine normal Acute hypoxic respiratory failure Secondary to pneumonia with underlying fibrosis Home O2 evaluation, DuoNeb every 4 hours as needed Currently saturating well on 4 L nasal cannula Patient was counseled to quit vaping Full code Cardiac diet DVT prophylaxis Lovenox Attestations Medical Necessity Statement*: Patient needs to in hospital for management of sepsis secondary pneumonia Coding Level of Care Code Acute 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
[2021-03-29] MEDS: atorvastatin 40 mg Tablet PO (17:23)
--- NOTE | 2021-03-29 19:00 | PC.NURSE ---
Report to Kailey ROBLES at this time.
[2021-03-29] MEDS: azithromycin 250 mg Tablet 500 MG PO (23:22)
[2021-03-29] MEDS: cefTRIAXone 1,000 MG in sodium chloride 0.9% (plus) 50 ML 100 MG IV (23:22)
[2021-03-30] VITALS (10 sets, daily range): BP systolic 94–137; BP diastolic 60–68; PULSE 64–88; RESP 15–24; TEMP 36.4–37.5; O2SAT 88–100
[2021-03-30] MEDS: enoxaparin 40 mg/0.4 mL Syringe SUBCUT (05:47)
[2021-03-30 06:24] LABS: Basophils % 0.3 %; Eosinophils # 0.1 10^3/uL (0.0-0.8); Hematocrit 34.4 % (37.0-47.0); Hemoglobin 10.5 g/dL (11.5-15.3); Lymphocytes % 34.4 %; Mean Corpuscular HGB Conc 30.5 g/dL (30.0-36.0); Mean Corpuscular Hemoglobin 27.1 pg (28.0-34.0); Mean Corpuscular Volume 88.7 fL (81-99); Mean Platelet Volume 9.6 fL (7.4-10.4); Monocytes # 0.9 10^3/uL (0.2-0.9); Monocytes % 8.1 %; Neutrophils # 6.46 10^3/uL (1.8-7.7); Neutrophils % 55.9 %; Nucleated Red Blood Cells % 0 %; Platelet Count 280 10^3/cmm (130-400); Red Blood Count 3.88 10^6/uL (4.1-5.3); Red Cell Distribution Width 15.1 % (12.1-15.1); White Blood Count 11.6 10^3/uL (4.0-10.0)
[2021-03-30 07:17] LABS: Procalcitonin 0.07 ng/mL (0-0.5)
[2021-03-30 07:28] LABS: Anion Gap 13.2 (5-19); Blood Urea Nitrogen 18 mg/dL (8-23); Calcium 8.3 mg/dL (8.5-10.5); Carbon Dioxide 21 mmol/L (22-29); Chloride 105 mmol/L (98-107); Glucose 92 mg/dL (65-115); Osmolality Calculated 282 mOsm/kg (285-295); Potassium 4.2 mmol/L (3.5-5.1); Sodium 135 mmol/L (136-145)
[2021-03-30] MEDS: clopidogrel 75 mg Tablet PO (08:04)
[2021-03-30] MEDS: pantoprazole DR 40 mg Tablet PO (08:04)
[2021-03-30] MEDS: lisinopril 10 mg Tablet 30 MG PO (08:04)
--- NOTE | 2021-03-30 12:44 | PM.PN ---
Vitals/I&O/Wt Last Vital Signs Temp 97.8 F 03/30/21 12:00 Pulse 69 03/30/21 12:00 Resp 15 03/30/21 12:00 BP 94/60 03/30/21 12:00 Pulse Ox 96 03/30/21 12:00 03/29/21 03/30/21 03/30/21 22:59 06:59 14:59 Intake Total 480 / 960 50 / 1010 360 / 360 Output Total 0 / 300 200 / 500 200 / 200 Balance 480 / 660 -150 / 510 160 / 160 Weight last 48 hrs Weight 62.596 kg Physical Exam Const: COMMON NORMALS: patient oriented x3 HENMT: COMMON NORMALS: normocephalic and atraumatic HEAD & SCALP: normocephalic and atraumatic Chest: CHEST: Yes Symmetrical chest wall rise Resp: EFFORT & INSPECTION: Yes symmetric chest movement OTHER: Bilateral wheezing, bilateral rhonchi, fine inspiratory crackles initially present in both lung styles has improved. Cardio: COMMON NORMALS: regular rate, regular rhythm, S1 normal heart sound present and S2 normal heart sound present RATE: regular rate RHYTHM: regular rhythm HEART SOUNDS: S1 normal heart sound present and S2 normal heart sound present OTHER: Ejection systolic murmur present in right second intercostal space GI: COMMON NORMALS: Normal to inspection, nondistended, normoactive bowel sounds present, Soft to palpation, non-tender, No hepatosplenomegaly present and no masses AUSCULTATION: Yes normoactive bowel sounds PALPATION: Yes Soft to palpation and Yes No hepatosplenomegaly present RECTAL EXAM: deferred Extremity: COMMON NORMALS: no clubbing, cyanosis or edema and no pedal edema Neuro: COMMON NORMALS: patient oriented x3 Data : 03/30/21 05:47 03/30/21 05:47 Micro: Microbiology 03/29/21 02:32 Blood Culture - Preliminary Blood NEGATIVE TO DATE 03/29/21 02:30 Blood Culture - Preliminary Blood NEGATIVE TO DATE A&P Assessment and plan (1) CAP (community acquired pneumonia): Patient came in with worsening shortness of breath, cough, fever, increasing oxygen requirement , do not use supplemental oxygen at home, currently she is requiring 4 Ls oxygen through nasal cannula. Continue ceftriaxone and azithromycin. Status: Acute Qualifiers: Laterality: unspecified laterality Qualified Code(s): J18.9 - Pneumonia, unspecified organism (2) Sepsis: Sepsis secondary to pneumonia: Blood culture:NTD Urine Legionella antigen: Negative Urine bacterial antigen: Negative Lactic acid:1.0 Procalcitonin:0.07 Status: Acute (3) UTI (urinary tract infection): Urine culture: GNR Status: Acute Qualifiers: Hematuria presence: with hematuria Urinary tract infection type: site unspecified Qualified Code(s): N39.0 - Urinary tract infection, site not specified; R31.9 - Hematuria, unspecified (4) Acute respiratory failure with hypoxia: Status: Acute (5) Heart murmur: Ejection systolic murmur present in right second intercostal space. Follow 2D echo; Status: Acute Additional A&P Information Sepsis secondary to pneumonia Criteria met with tachypnea, leukocytosis, We will start her on ceftriaxone and azithromycin requested blood culture, urine culture and urine antigens We will keep her on DuoNeb and 4 L nasal cannula oxygen supplementation for now Will need home O2 evaluation before discharge Chest x-ray consistent with fibrotic changes, left-sided pulmonary nodule has extensive smoking history, currently using vape, 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, COVID-19 antigen negative, malignancy not ruled out UTI Patient endorsing urinary frequency and urgency Currently on ceftriaxone Abnormal UA reviewed Creatinine normal Acute hypoxic respiratory failure Secondary to pneumonia with underlying fibrosis Home O2 evaluation, DuoNeb every 4 hours as needed Currently saturating well on 4 L nasal cannula Patient was counseled to quit vaping Full code Cardiac diet DVT prophylaxis Lovenox Attestations Medical Necessity Statement*: Patient needs to be in hospital for management of pneumonia and sepsis. 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
--- NOTE | 2021-03-30 15:12 | USCV_ITS ---
Sil Diaz Age: 81 Gender: F : 1940 Exam Date: 03/30/2021 10:59 Ordering Phys: Nilay Barfield MD Technologist: Yanet Peralta Exam Location: [facility] Indication: Shortness of breath BP: 106 / 62 HR: 66 Rhythm: Sinus Technical Quality: Fair MEASUREMENTS (Male / Female) Normal Values 2D ECHO LV Diastolic Diameter PLAX 3.8 cm 4.2 - 5.9 / 3.9 - 5.3 cm LV Systolic Diameter PLAX 2.7 cm LV Chamber Size 2.9 cm IVS Diastolic Thickness 1.7 cm 0.6 - 1.0 / 0.6 - 0.9 cm IVS Systolic Thickness 1.9 cm LVPW Diastolic Thickness 1.0 cm 0.6 - 1.0 / 0.6 - 0.9 cm LVPW Systolic Thickness 1.2 cm RV Chamber Size 2.0 cm LVOT Diameter 1.8 cm LV Ejection Fraction 2D Teich 56.5 % LV Ejection Fraction MOD 2C 55.2 % LV Ejection Fraction 2C AL 57.9 % LA Diameter 2.9 cm LA Width 2.9 cm LA Height 4.4 cm RA Width 1.7 cm RA Height 3.5 cm Aorta at Sinotubular Diameter 1.2 cm M-MODE LV Diastolic Diameter MM 4.2 cm 4.2 - 5.9 / 3.9 - 5.3 cm LV Systolic Diameter MM 3.1 cm LV Ejection Fraction MM Teich 52.6 % IVS Diastolic Thickness MM 1.1 cm 0.6 - 1.0 / 0.6 - 0.9 cm IVS Systolic Thickness MM 1.4 cm LVPW Diastolic Thickness MM 1.2 cm 0.6 - 1.0 / 0.6 - 0.9 cm LVPW Systolic Thickness MM 1.9 cm Aortic Annulus Diameter 2.9 cm LA Ao Ratio MM 1.0 MV E Point Septal Separation 0.8 cm DOPPLER AV Peak Velocity 147.0 cm/s LVOT Peak Velocity 91.0 cm/s AV Area Cont Eq vti 1.9 cm squared AV Area Cont Eq pk 1.6 cm squared MV Area PHT 3.3 cm squared Mitral E to A Ratio 0.8 MV E' Velocity 47.0 cm/s Mitral E to MV E' Ratio 13.7 Mitral E to LV E' Lateral Ratio 12.3 Mitral E to LV E' Septal Ratio 15.3 TV Peak E Velocity 56.0 cm/s Right Atrial Pressure 3.0 mmHg PV Peak Velocity 59.0 cm/s RV Acceleration Time 0.1 s RV Ejection Time 0.3 s RV AcT/ET 0.3 FINDINGS Left Ventricle Normal left ventricular cavity size. Normal left ventricular systolic function. No regional wall motion abnormalities. Left ventricular ejection fraction is estimated at 60 %. Grade I/IV diastolic dysfunction (abnormal relaxation filling pattern), normal to mildly elevated filling pressures. Right Ventricle Normal right ventricular size. RVSP could not be calculated due to incomplete tricuspid regurgitation velocity profile. Right Atrium The right atrium is normal in size. Left Atrium Moderately increased left atrial size. Mitral Valve Moderately thickened mitral valve. No mitral valve stenosis. Mild mitral valve regurgitation. Aortic Valve Moderate aortic valve calcification. Moderate aortic valve stenosis, mean gradient 4.6 mmHg, SAHIL 1.9 cm squared. Trace aortic valve regurgitation. Tricuspid Valve Structurally normal tricuspid valve without significant stenosis or regurgitation. Pulmonary artery systolic pressure is normal. Pulmonic Valve Structurally normal pulmonic valve without significant stenosis. There is no pulmonic regurgitation. Pericardium Normal pericardium without effusion. Aorta Normal ascending aorta dimension. CONCLUSIONS 1-Normal left ventricular cavity size. Normal left ventricular systolic function. No regional wall motion abnormalities. Left ventricular ejection fraction is estimated at 60 %. Grade I/IV diastolic dysfunction (abnormal relaxation filling pattern), normal to mildly elevated filling pressures. 2-Moderately thickened mitral valve. No mitral valve stenosis. Mild mitral valve regurgitation. 3-Normal right ventricular size. RVSP could not be calculated due to incomplete tricuspid regurgitation velocity profile. 4-Right atrial pressure is around 5 mm of mercury. 5-There are no prior echocardiogram studies to compare. Nigel Riojas MD (Electronically Signed) Final Date: 30 Mar 2021 23:33 S
[2021-03-30] MEDS: ipratropium-albuterol 3 mL Neb INHALATION (15:20)
[2021-03-30] MEDS: atorvastatin 40 mg Tablet PO (17:47)
--- NOTE | 2021-03-30 19:01 | PC.NURSE ---
Report to Kailey ROBLES at this time.
[2021-03-30] MEDS: azithromycin 250 mg Tablet 500 MG PO (22:43)
[2021-03-30] MEDS: cefTRIAXone 1,000 MG in sodium chloride 0.9% (plus) 50 ML 100 MG IV (22:45)
[2021-03-31] VITALS (7 sets, daily range): BP systolic 120–125; BP diastolic 56–68; PULSE 63–75; RESP 15–24; TEMP 36.8–36.9; O2SAT 86–94
[2021-03-31] MEDS: enoxaparin 40 mg/0.4 mL Syringe SUBCUT (05:48)
[2021-03-31 06:48] LABS: Basophils % 0.4 %; Eosinophils # 0.2 10^3/uL (0.0-0.8); Eosinophils % 1.3 %; Hematocrit 35.7 % (37.0-47.0); Hemoglobin 10.8 g/dL (11.5-15.3); Lymphocytes # 4.5 10^3/uL (0.8-4.8); Lymphocytes % 39.7 %; Mean Corpuscular HGB Conc 30.3 g/dL (30.0-36.0); Mean Corpuscular Hemoglobin 27.1 pg (28.0-34.0); Mean Corpuscular Volume 89.7 fL (81-99); Mean Platelet Volume 9.8 fL (7.4-10.4); Monocytes # 0.9 10^3/uL (0.2-0.9); Monocytes % 7.6 %; Neutrophils # 5.77 10^3/uL (1.8-7.7); Neutrophils % 50.6 %; Nucleated Red Blood Cells % 0 %; Platelet Count 297 10^3/cmm (130-400); Red Blood Count 3.98 10^6/uL (4.1-5.3); Red Cell Distribution Width 14.9 % (12.1-15.1); White Blood Count 11.4 10^3/uL (4.0-10.0)
[2021-03-31 07:18] LABS: Anion Gap 12.2 (5-19); Blood Urea Nitrogen 17 mg/dL (8-23); Calcium 8.1 mg/dL (8.5-10.5); Carbon Dioxide 23 mmol/L (22-29); Chloride 107 mmol/L (98-107); Glucose 89 mg/dL (65-115); Osmolality Calculated 287 mOsm/kg (285-295); Potassium 4.2 mmol/L (3.5-5.1); Sodium 138 mmol/L (136-145)
[2021-03-31] MEDS: lisinopril 10 mg Tablet 30 MG PO (08:09)
[2021-03-31] MEDS: clopidogrel 75 mg Tablet PO (08:09)
[2021-03-31] MEDS: pantoprazole DR 40 mg Tablet PO (08:09)
[2021-03-31] MEDS: ipratropium-albuterol 3 mL Neb INHALATION (08:53)
--- NOTE | 2021-03-31 11:50 | PM.DCS ---
Discharge Providers Date of Admission: 03/29/21 00:46 Date of Discharge: March 31, 2021 Attending Provider at Admission: Nigel Ott MD Attending Provider at Discharge: Ofe Cervantes MD Primary Care Provider: Rios Anaya DO Diagnoses at Discharge Discharge Diagnosis (1) CAP (community acquired pneumonia): Status: Acute Qualifiers: Laterality: unspecified laterality Qualified Code(s): J18.9 - Pneumonia, unspecified organism (2) Sepsis: Status: Acute (3) UTI (urinary tract infection): Status: Acute Qualifiers: Hematuria presence: with hematuria Urinary tract infection type: site unspecified Qualified Code(s): N39.0 - Urinary tract infection, site not specified; R31.9 - Hematuria, unspecified (4) Acute respiratory failure with hypoxia: Status: Acute (5) Heart murmur: Status: Acute Reason for Visit Reason for Visit: difficulty breathing/fever Hospital Course Hospital Course 81 year old female with past medical history of hypertension , GERD , CVA came in with chief complaint of worsening shortness of breath with productive cough, going on for the last 2 weeks, she was also febrile at home , on admission she was also endorsing symptoms consistent with UTI . She was admitted for the management of sepsis secondary to pneumonia. X-ray chest showed 11 mm mildly irregular nodularity seen in the left upper hemithorax similar to that seen previously on 08/09/2020. There there is a background pulmonary fibrosis. Additionally, there are patchy opacities present in the lung bases bilaterally and along the right lateral chest wall, findings that may represent a superimposing patchy pneumonia. For her sepsis secondary to pneumonia : Blood culture:NTD Urine Legionella antigen: Negative Urine bacterial antigen: Negative. Lactic acid:1.0 , Procalcitonin:0.07. She was kept on ceftriaxone and azithromycin, to which she responded very well, at the time of discharge she was hemodynamically stable, had no fever during the hospital stay. She was also discharged on levofloxacin 500 mg p.o. daily for additional 5 days. For her pneumonia she responded well to the above antibiotic though on discharge she qualified for 3 L home oxygen. SHe has not used oxygen at home in the past. UTI: Urine culture grew gram-negative akua, no urinary symptoms at the time of discharge. She also got 2D echo done, which showed normal left ventricular cavity size. Normal left ventricular systolic function. No regional wall motion abnormalities. Left ventricular ejection fraction is estimated at 60 %. Grade I/IV diastolic dysfunction (abnormal relaxation filling pattern), normal to mildly elevated filling pressures. Moderately thickened mitral valve. No mitral valve stenosis. Mild mitral valve regurgitation. Normal right ventricular size. RVSP could not be calculated due to incomplete tricuspid regurgitation velocity profile. Right atrial pressure is around 5 mm of mercury. X-ray chest showed 11 mm mildly irregular nodularity seen in the left upper hemithorax similar to that seen previously on 08/09/2020, she will need outpatient CT scan chest without contrast, for further work-up. Patient responded well to the medical management she is being discharged in stable condition to home. Physical Exam Const: COMMON NORMALS: patient oriented x3 HENMT: COMMON NORMALS: normocephalic and atraumatic HEAD & SCALP: normocephalic and atraumatic Chest: CHEST: Yes Symmetrical chest wall rise Resp: EFFORT & INSPECTION: Yes symmetric chest movement OTHER: Bilateral wheezing, bilateral rhonchi, fine inspiratory crackles initially present in both lung styles has improved. Cardio: COMMON NORMALS: regular rate, regular rhythm, S1 normal heart sound present and S2 normal heart sound present RATE: regular rate RHYTHM: regular rhythm HEART SOUNDS: S1 normal heart sound present and S2 normal heart sound present OTHER: Ejection systolic murmur present in right second intercostal space GI: COMMON NORMALS: Normal to inspection, nondistended, normoactive bowel sounds present, Soft to palpation, non-tender, No hepatosplenomegaly present and no masses AUSCULTATION: Yes normoactive bowel sounds PALPATION: Yes Soft to palpation and Yes No hepatosplenomegaly present RECTAL EXAM: deferred Extremity: COMMON NORMALS: no clubbing, cyanosis or edema and no pedal edema Neuro: COMMON NORMALS: patient oriented x3 Discharge Data Data Completed and Pending: Completed Studies During Hospitalization Category Date Time Status XR chest 1V selena ble [id number] Stat Exams 03/28/21 21:10 Completed CV echo complete* [id number] Routine Ultrasound 03/30/21 15:12 Completed Pending at discharge Category Date Time Status Basic Metabolic P sukhdeep AM LABS Lab 04/01/21 04:00 Ordered Blood Culture Sta t Lab 03/29/21 02:32 Results Complete Blood Co unt w/Auto AM LABS Lab 04/01/21 04:00 Ordered Labs from last 24 hours 03/31/21 03/31/21 05:25 05:25 WBC 11.4 H RBC 3.98 L Hgb 10.8 L Hct 35.7 L MCV 89.7 MCH 27.1 L MCHC 30.3 RDW 14.9 Plt Count 297 MPV 9.8 Neut % (Auto) 50.6 Lymph % (Auto) 39.7 Bullitt % (Auto) 7.6 Eos % (Auto) 1.3 Baso % (Auto) 0.4 Neut # (Auto) 5.77 Lymph # (Auto) 4.5 Bullitt # (Auto) 0.9 Eos # (Auto) 0.2 Baso # (Auto) 0.0 Nucleated RBC % (a uto) 0 Nucleated RBCs # 0.0 Sodium 138 Potassium 4.2 Chloride 107 Carbon Dioxide 23 Anion Gap 12.2 BUN 17 Creatinine 0.5 GFR Calculation Not Reportable Glucose 89 Calculated Osmolal ity 287 Calcium 8.1 L Vitals: Last Vital Signs Temp 98.2 F 03/31/21 11:19 Pulse 75 03/31/21 11:19 Resp 15 03/31/21 11:19 BP 120/56 03/31/21 11:19 Pulse Ox 93 03/31/21 11:19 Discharge Plan Discharge Patient Disposition: Home Condition: Stable Prescriptions: New levofloxacin 500 mg tablet 500 mg PO DAILY 5 Days RF: 0 prednisone 20 mg tablet 20 mg PO DAILY Qty: 5 RF: 0 Continued clopidogrel [Plavix] 75 mg tablet 75 mg PO DAILY RF: 0 atorvastatin 40 mg tablet 40 mg PO DAILY RF: 0 citalopram 40 mg tablet 40 mg PO DAILY RF: 0 pantoprazole 40 mg tablet,delayed release (DR/EC) 40 mg PO DAILY RF: 0 lisinopril 30 mg tablet 30 mg PO DAILY RF: 0 Discharge Orders: Discharge Order (Routine); Ordered 03/31/21 Ordered By: Nilay Barfield Other Ambulatory Orders: DME: Oxygen (Order) Location: None Selected Ordered By: Nilay Barfield Referrals: Rios Anaya DO [Primary Care Provider] - 4-7 days (Please contact Dr. Anaya office Thursday morning to make a follow-up appointment within 1 week. ) Discharge Diet: Regular Discharge Activity: Resume usual activity Patient Instructions: Prednisone (By mouth), Levofloxacin (By mouth), Urinary Tract Infection in Women (GEN), Opioid Safety Discharge Attestations Time Spent in Discharge Care*: less than 30 min Specific Discharge Activities: educating patient, educating and/or supporting family/caregiver, discussing with piano case and bench assembler/social workers/dc planners, documenting/other paperwork and evaluating patient/reviewing data Status at Discharge: Cognitive status at discharge: cognitively intact, Behavioral status at discharge: cooperative, Functional status at discharge: independent ambulation Overall status at discharge: patient is back to baseline Quality Metrics Clinical Quality Measures During this hospital stay, did patient experience: None Coding Level of Care Code Acute Chg FW DC note Diagnoses CAP (community acquired pneumonia) J18.9 Laterality: unspecified laterality Sepsis A41.9 UTI (urinary tract infection) N39.0; R31.9 Hematuria presence: with hematuria Urinary tract infection type: site unspecified Acute respiratory failure with hypoxia J96.01 Heart murmur R01.1
--- NOTE | 2021-03-31 12:42 | PC.CHAP ---
Pastoral Care Encounter/Spiritual Assessment Type of Contact [] Declined plumber supervisor visit [] Patient/Family/Request visit [] Outpatient visit [] Follow-up visit [] Physician referral [] Code/Alert [XX] Routine visit [] Staff referral [] Actively dying [] Patient sleeping [] Family support [] [] Out of room [] Palliative care [] [] Receiving care in room [] Pre-surgical visit [] Trauma [] Long length of stay [] ICU visit [XX] Other:pt being discharged when I entered room Relational/Emotional Strength [] Patient feels connected with others/family/visitors/staff [] Distress [] Loneliness/isolation [] Abandonment Spirituality of Patient [] Person of Maria M [] Attends Mandaen of their Maria M [] Believes in Prayer [] Reads Bible or Baptist materials [] There are Spiritual issues to be addressed Artist'S Model Interventions [] Prayer [] Active listening [] Non-anxious presence [] Spiritual/emotional support [] Crisis/trauma care [] Spiritual counseling [] Bereavement support [] Provided bereavement packet [] Provided Bible/devotional materials [] Provided toy/stuffed animal, coloring book to patient or family member [] Provided Communion [] Anointing/[place] [] Salvation [] Completed spiritual assessment [] Other: Impact on Illness or Injury [] Angry [] Fearful [] Anxious [] Often cries [] Exhaustion [] Unable to work [] Unable to attend lutheran [] Unable to walk/stand [] Unable to read [] Unable to drive [] Unable to eat/drink [] Unable to sleep [] Unable to be with family [] Patient intubated [] Other: Summary Time spent with patient
--- NOTE | 2021-03-31 13:04 | PC.NURSE ---
Discharge instructions reviewed with patient and granddaughter at this time. Patient and granddaughter verbalized understanding at this time. Patient and granddaughter verbalized understanding of need to take prescription to [facility] and to [facility] the prednisone that was sent there as well. Patient has oxygen at 3 liters on from HOME. IV removed intact. Patient is A&Ox3. Respirations even and non-labored. Patient wheel chaired to private car.
== END 2021-03-31 12:45 | disposition home or self-care (01) ==
LOC: ER 21:43 → MEDSURG 03-29 05:53
PROVIDERS: Internal Medicine; Nurse Practitioner Family; Admitting Provider Internal Medicine; Emergency Provider Family Medicine; PCP Family Medicine; Visit Provider Student in an Organized Health Care Education/Training Program
DX: J18.9 Pneumonia, unspecified organism (principal); A41.9 Sepsis, unspecified organism; N39.0 Urinary tract infection, site not specified; R31.9 Hematuria, unspecified; J96.01 Acute respiratory failure with hypoxia; R01.1 Cardiac murmur, unspecified; I10 Essential (primary) hypertension; K21.9 Gastro-esophageal reflux disease without esophagitis; Z86.73 Personal history of transient ischemic attack (TIA), and cerebral infarction without residual deficits; E78.5 Hyperlipidemia, unspecified
CPT/HCPCS: 36415; 36600; 71045; 80048; 80051; 80053; 81001; 82330; 82805; 83605; 84145; 84484; 85025; 86403; 87040; 87077; 87086; 87186; 87426; 87449; 93005; 93306; 94640; 96365; 96367; 96372; 99285; G0378; J0696; J1650; Q0144

== ENCOUNTER 2022-01-02 11:00 | Emergency (ER) | payer MEDICARE, SELFPAY ==
[2022-01-02 11:07] VITALS: BP 115/71; PULSE 94; RESP 19; TEMP 36.4; O2SAT 91; BMI 27.4
--- NOTE | 2022-01-02 11:23 | ED_ITS ---
HPI - Nausea/Vomiting/Diarrhea General: Chief complaint: Nausea/Vomiting/Diarrhea Stated complaint: Puking and burning feeling in stomach at the top Time Seen by Provider: 01/02/22 11:23 History of Present Illness: Ms. Diaz is an 81-year-old lady with significant past medical history of hypertension and GERD who presents emergency department due to nausea vomiting as well as abdominal pain. She reports 1 week history of gradual onset worsening burning in her chest which has become moderate in intensity. She subsequently had 3 episodes of green emesis today. She does have moderate associated epigastric pain without specific radiation. She denies urinary symptoms. She reports normal bowel movements. She has had headache and generalized malaise as well as an episode of chills yesterday. Overall the course of symptoms has been worsening. She does report a history of burning in her chest however this is been more persistent. No other new changes in health, exacerbating, or relieving factors identified. She does have a history of cholecystectomy. Patient is vaccinated against Covid and has had booster however she does live with someone who tested positive for Covid. Pertinent past history: other Onset (ago): day(s) Description of vomiting: other Associated nausea: Yes Associated abdominal pain: Yes Location of pain: Epigastric Radiation: chest Pain consistency: constant Severity: moderate Quality: other Exacerbating factors: other (laying down) Relieving factors: none Associated symtoms: Reports nausea Review of Systems General: Reports: 10 or more systems reviewed and unremarkable except in HPI and below GI: Reports: nausea PFSH ED PFSH: Medical History Acute respiratory failure with hypoxia CAP (community acquired pneumonia) Cat bite CVA (cerebral vascular accident) Dyslipidemia GERD (gastroesophageal reflux disease) Heart murmur HTN (hypertension) Sepsis UTI (urinary tract infection) Surgical History H/O lumbar discectomy History of cholecystectomy Family History Other Family history non-contributory Social History Smoking and tobacco status: never smoked Alcohol intake: never Housing: House Physical Exam Const: COMMON NORMALS: alert GENERAL APPEARANCE: cooperative, well developed and ill appearing (midly) HENMT: COMMON NORMALS: normocephalic, atraumatic, external ears normal and Normal external nose present HEAD & SCALP: normocephalic and atraumatic NOSE: Normal external nose present EXTERNAL EAR: Yes external ears normal Eye: COMMON NORMALS: conjunctivae normal CONJUNCTIVA: Yes conjunctivae normal SCLERA: sclerae normal Neck/C-Spine: COMMON NORMALS: supple GENERAL: Yes trachea midline Resp: COMMON NORMALS: normal respiratory effort and clear to auscultation bilaterally EFFORT & INSPECTION: Yes able to speak in complete sentences AUSCULTATION: clear to auscultation bilaterally Cardio: COMMON NORMALS: regular rate and regular rhythm RATE: regular rate RHYTHM: regular rhythm GI: COMMON NORMALS: Soft to palpation PALPATION: Yes Soft to palpation, Yes Tenderness to palpation present (GI) (mild, epigastric), No Guarding due to palpation present (GI) and No Rigid due to palpation PERCUSSION: normal to percussion Extremity: GENERAL: Yes normal exam except as noted and No edema Neuro: COMMON NORMALS: moves all extremities SENSORIUM/ORIENTATION: Yes alert and No Orientation impaired Psych: COMMON NORMALS: mental status grossly normal and Normal thought process present THOUGHT PROCESS: Normal thought process present Course ED course: - Patient was seen and evaluated by me at bedside - Patient placed on cardiac monitors, IV access obtained - Initial evaluation notable for exam as above - Zofran, GI cocktail, PPI, fluids given - Labs notable for leukocytosis. Normal hemoglobin. Metabolic panel with only minimally decreased bicarb. Initial troponin is elevated however delta troponin is negative and given symptoms greater than 6 hours I do not believe that continued trending is necessary. Urinalysis concerning for urinary tract infection. - Imaging notable for mild hyperemia in the duodenum likely reflecting duodenit is. - Upon serial reexamination after treatment the patient was improved with treatment. She tolerated p.o. intake. - Based on patient history, evaluation, labs, and imaging as interpreted the most likely cause of the patient's condition is duodenitis and urinary tract infection - The results of ED evaluation were discussed with the patient including prescriptions and/or symptomatic cares (if applicable) including appropriate and responsible use, followup plan, and return precautions. The patient verbalized understanding and felt safe for discharge. - Patient discharged in satisfactory condition. Note: Click bubbles or prepopulated styles in note writing are used for assistance with data collection and billing and are inherently more limited than narrative and other text portions of this note. Please use narrative for additional clinical history and defer to narrative/free test for any case of contradictory information. If information appears in only free text or click bubble it should be considered present or absent as reported. Please contact note rfp writer for clarifications of clinical information or contradictory information. MDM is a brief summary, contradictory or erroneous seeming information should be clarified and full note should be reviewed. Vital Signs: Vital signs: Vital Signs Temperature 97.5 F L 01/02/22 11:07 Pulse Rate 74 01/02/22 14:45 Respiratory Rate 16 01/02/22 14:45 Blood Pressure 130/72 01/02/22 14:45 Pulse Oximetry 92 01/02/22 14:45 MDM - Nausea/Vomiting/Diarrhea Medical Decision Making 81-year-old lady presenting with 1 week of burning epigastric pain worse when lying down and now 3 episodes in nonbloody emesis. Mild associated epigastric abdominal pain. Found to have UTI and duodenitis. Tolerated p.o. intake. Improved with treatment. Plan to discharge on Augmentin for treatment of duodenitis and urinary tract infection with strict return precautions. Discharged in satisfactory condition. Medical Records I reviewed the patient's medical records. Lab Data I reviewed the patient's lab results. : 01/02/22 11:45 01/02/22 11:45 Radiology Impressions Abdomen/Pelvis CT 01/02/22 11:32 IMPRESSION: 1. Very mild hyperemia and increased soft tissue in the duodenal C-loop may be an area of ulceration or duodenitis. If symptoms do not resolve with treatment endoscopy may be necessary. There is no obstruction of the GI tract. 2. No free air or free fluid. 3. Prior appendectomy and cholecystectomy. 4. Moderate atherosclerotic changes within the aorta and iliac arteries. Chest X-Ray 01/02/22 11:32 IMPRESSION: 1. Stable cardiomegaly. 2. Moderate to advanced chronic emphysematous changes 3. Chronic appearing interstitial thickening throughout the RIGHT lung similar in appearance to March 08, 2021. Stable interstitial thickening LEFT lung base. 4. No focal pneumonia or pleural fluid. Laboratory Results WBC 15.3 10^3/uL (4.0-10.0) H 01/02/22 11:45 RBC 5.04 10^6/uL (4.1-5.3) 01/02/22 11:45 Hgb 13.4 g/dL (11.5-15.3) 01/02/22 11:45 Hct 44.6 % (37.0-47.0) 01/02/22 11:45 MCV 88.5 fl (81-99) 01/02/22 11:45 MCH 26.6 pg (28.0-34.0) L 01/02/22 11:45 MCHC 30.0 g/dL (30.0-36.0) 01/02/22 11:45 RDW 15.3 % (12.1-15.1) H 01/02/22 11:45 Plt Count 262 10^3/cmm (130-400) 01/02/22 11:45 MPV 9.8 fL (7.4-10.4) 01/02/22 11:45 Neut % (Auto) 75.7 % 01/02/22 11:45 Lymph % (Auto) 19.0 % 01/02/22 11:45 [place] % (Auto) 4.3 % 01/02/22 11:45 Eos % (Auto) 0.1 % 01/02/22 11:45 Baso % (Auto) 0.4 % 01/02/22 11:45 Neut # (Auto) 11.56 10^3/uL (1.8-7.7) H 01/02/22 11:45 Lymph # (Auto) 2.9 10^3/uL (0.8-4.8) 01/02/22 11:45 [place] # (Auto) 0.7 10^3/uL (0.2-0.9) 01/02/22 11:45 Eos # (Auto) 0.0 10^3/uL (0.0-0.8) 01/02/22 11:45 Baso # (Auto) 0.1 10^3/uL (0.0-0.1) 01/02/22 11:45 Nucleated RBC % (auto) 0 % 01/02/22 11:45 Nucleated RBCs # 0.0 /100WBC 01/02/22 11:45 Sodium 140 mmol/L (136-145) 01/02/22 11:45 Potassium 3.8 mmol/L (3.5-5.1) 01/02/22 11:45 Chloride 105 mmol/L (98-107) 01/02/22 11:45 Carbon Dioxide 20 mmol/L (22-29) L 01/02/22 11:45 Anion Gap 18.8 (5-19) 01/02/22 11:45 BUN 18 mg/dL (8-23) 01/02/22 11:45 Creatinine 0.7 mg/dL (0.5-0.9) 01/02/22 11:45 GFR Calculation Not Reportable 01/02/22 11:45 Glucose 90 mg/dL (65-115) 01/02/22 11:45 Calculated Osmolality 291 mOsm/kg (285-295) 01/02/22 11:45 Calcium 8.8 mg/dL (8.5-10.5) 01/02/22 11:45 Total Bilirubin 0.6 mg/dL (0.15-1.2) 01/02/22 11:45 AST 20 U/L (0-32) 01/02/22 11:45 ALT 19 U/L (0-33) 01/02/22 11:45 Alkaline Phosphatase 186 IU/L (35-105) H 01/02/22 11:45 Troponin T Baseline 60 ng/L (0-10) H 01/02/22 11:45 Troponin T 120 Minute 64.27 ng/L (0-10) H 01/02/22 13:45 Delta Troponin T 4.27 ABS# (0-10) 01/02/22 13:45 Total Protein 7.6 g/dL (6.6-8.7) 01/02/22 11:45 Albumin 4.0 g/dL (3.5-5.2) 01/02/22 11:45 Globulin 3.6 g/dL (1.3-4.6) 01/02/22 11:45 Lipase 19 U/L (13-60) 01/02/22 11:45 Urine Color Yellow (Yellow) 01/02/22 12:05 Urine Appearance Cloudy (CLEAR) 01/02/22 12:05 Urine pH 6.5 (5-7) 01/02/22 12:05 Ur Specific [place] 1.015 (1.005-1.030) 01/02/22 12:05 Urine Protein 1+ (Negative) H 01/02/22 12:05 Urine Glucose (UA) Norm (Normal) 01/02/22 12:05 Urine Ketones Negative (Negative) 01/02/22 12:05 Urine Blood 2+ (Negative) H 01/02/22 12:05 Urine Nitrate Positive (Negative) H 01/02/22 12:05 Urine Bilirubin Neg (Negative) 01/02/22 12:05 Urine Urobilinogen Norm mg/dL (Negative) 01/02/22 12:05 Ur Leukocyte Esterase 1+ (Negative) H 01/02/22 12:05 Urine RBC 0-4 /hpf (0-2) H 01/02/22 12:05 Urine WBC 25-40 /hpf (0-5) H 01/02/22 12:05 Ur Squamous Epith Cells 0-4 /hpf (0-5) H 01/02/22 12:05 Triple Phos Crystals 0-4 /hpf H 01/02/22 12:05 Amorphous Sediment Not Reportable 01/02/22 12:05 Urine Bacteria 3+ /hpf (NONE) H 01/02/22 12:05 SARS-CoV-2 Ag (Rapid) Negative (Negative) 01/02/22 11:43 EKG Data EKG 1: I personally reviewed and interpreted this EKG as follows: EKG interpretation date: 01/02/22 EKG interpretation time: 12:31 Interpretation: Twelve-lead EKG shows a regular rhythm at a rate of 72. W[place] interval 126, QRS duration 93, QTc 419. Normal axis. Interpretation: Sinus rhythm. Discharge Plan Discharge Patient Disposition: Home Clinical Impression: Nausea & vomiting, Epigastric pain, Acute duodenitis, Acute UTI Condition: Stable Prescriptions: New Augmentin 875-125 mg tablet 1 tab PO BID 10 Days Qty: 20 0RF No Action clopidogrel [Plavix] 75 mg tablet 75 mg PO DAILY 0RF atorvastatin 40 mg tablet 40 mg PO DAILY 0RF citalopram 40 mg tablet 40 mg PO DAILY 0RF pantoprazole 40 mg tablet,delayed release (DR/EC) 40 mg PO DAILY 0RF Rx Instructions: TAKE 30 MINUTES BEFORE BREAKFAST. lisinopril 30 mg tablet 30 mg PO DAILY 0RF prednisone 20 mg tablet 20 mg PO DAILY Qty: 5 0RF Discharge Orders: Discharge ED (Routine); Ordered 01/02/22 Ordered By: Edgar Johnson Referrals: Rios Anaya, DO [Primary Care Provider] - Discharge Diet: Advance as tolerated and Clear Liquid Discharge Activity: Resume usual activity Patient Instructions: Urinary Tract Infection in Women (ED), Acute Nausea and Vomiting (ED), Abdominal Pain (ED), Enteritis (ED) Activity Restrictions/Additional Instructions: Thank you for visiting the emergency department. You were seen and evaluated for nausea and vomiting as well as abdominal chest discomfort. The exact cause of your symptoms is somewhat unclear though may be or is likely related to mild inflammation of the intestines identified on CT scan. Additionally you are found of urinary tract infection. You will be given a course of antinausea medications and antibiotics. The radiologist notes that: If symptoms do not resolve with treatment endoscopy may be necessary. Please follow-up with your primary care provider. Please continue to take your PPI or H2 michell in addition to the prescribed medication. Return to the emergency department for worsening symptoms, chest pain, shortness of breath, inability to tolerate oral intake, or anything else that you are concerned about and feel needs emergency department evaluation. Coding Level of Care Code ED Machine Tool Rebuilder for Marialuisa Fwd Exam Comprehensive
[2022-01-02 11:29] VITALS: BP 115/64; PULSE 81; RESP 18; O2SAT 95
--- NOTE | 2022-01-02 11:32 | XR_ITS ---
WS: [id number] CHEST XRAY TECHNIQUE: Portable chest. CLINICAL INFORMATION: burning in chest COMPARISON: March 28, 2021 FINDINGS: Heart: Cardiomegaly. Aortic calcification. Lungs: Advanced chronic emphysematous changes. Interstitial thickening throughout the RIGHT lung holley lar in appearance to March 08, 2021. LEFT lung is well aerated. Slight interstitial thickening LEFT l ower lobe also appears stable. No focal pneumonia or pleural fluid. Bones: Osteopenia. XR/XR chest 1V portable [id number] IMPRESSION: 1. Stable cardiomegaly. 2. Moderate to advanced chronic emphysematous changes 3. Chronic appearing interstitial thickening throughout the RIGHT lung similar in appearance to March 08, 2021. Stable interstitial thickening LEFT lung base . 4. No focal pneumonia or pleural fluid.
--- NOTE | 2022-01-02 11:32 | CT_ITS ---
WS: [id number] CT ABDOMEN AND PELVIS WITH CONTRAST HISTORY: epigastric abdominal pain TECHNIQUE: Imaging performed of the abdomen and pelvis with IV contrast. Single phase imaging of the abdomen. Coronal and sagittal reformats are submitted. All CT scans at [facility] use at [address] one of these dose optimization techniques: automated exposure control; mA and/or kV adjustment per patient size (includes targeted exams where dose is matched to clinical indication); or iterative re construction. IV CONTRAST: Omnipaque 300; 95 mL IV. Oral contrast: Yes. DLP: 1309.66 mGy.cm COMPARISON: 10/02/2015 Lower thorax: Chronic emphysematous changes at the lung bases. Heart is normal size. Small hiatal her dino. Liver/biliary system: Normal size with no intrahepatic dilatation. Gallbladder: Normal. No gallstones or wall thickening. No pericholecystic fluid. Pancreas: Normal size pancreas and pancreatic duct. No adjacent inflammation. Spleen: Normal size spleen. No mass or infarct. Adrenal glands: Normal. Right kidney: Focal cortical scarring and thinning in the upper pole. Cortical cyst in the upper pole measures 7 mm. Left kidney: Normal. Aorta: Moderate atherosclerosis with no aneurysm.. Calcification continues into the iliac arteries. Lymphadenopathy: None. Free fluid: None. GI tract: No GI tract obstruction. There are some very minimal hyperemia in the proximal duodenum. No obstruction. In the duodenal C-loop and antrum at this location. No small bowel obstruction. Prior a ppendectomy. There are a few scattered diverticula in the colon. Abdominal wall: Unremarkable abdominal wall. No hernia. Pelvis: No free fluid or adenopathy within the pelvis. Atrophic uterus. No adnexal masses or fluid. Bones: Osteopenia and moderate degenerative disc disease. CT/CT abdomen pelvis w con* [id number] IMPRESSION: 1. Very mild hyperemia and increased soft tissue in the duodenal C-loop may be an area of ulceration or duodenitis. If symptoms do not resolve with treatment endoscopy may be necessary. There is no obstruction of the GI tract. 2. No free air or free fluid. 3. Prior appendectomy and cholecystectomy. 4. Moderate atherosclerotic changes within the aorta and iliac arteries.
--- NOTE | 2022-01-02 11:33 | ECG_ITS ---
[facility] Test Date: 2022-01-02 Pat Name: Sil Diaz Department: Room: Gender: Female Foil Spinner: : 1940 Requested By: Edgar Johnson Order Number: [id number] Terry MD: Steffi Cuevas M.D. Measurements Intervals [place] Rate: 72 P: 18 TN: 126 QRS: 11 QRSD: 94 T: 47 QT: 395 QTc: 434 Interpretive Statements SINUS RHYTHM Compared to ECG 03/29/2021 03:55:08 No significant changes Electronically Signed On 01-03-2022 10:55:33 ASPHALT PAVER OPERATOR by Steffi Cuevas M.D. [id number]
[2022-01-02 12:00] LABS: Basophils # 0.1 10^3/uL (0.0-0.1); Basophils % 0.4 %; Eosinophils % 0.1 %; Hematocrit 44.6 % (37.0-47.0); Hemoglobin 13.4 g/dL (11.5-15.3); Lymphocytes # 2.9 10^3/uL (0.8-4.8); Mean Corpuscular Hemoglobin 26.6 pg (28.0-34.0); Mean Corpuscular Volume 88.5 fl (81-99); Mean Platelet Volume 9.8 fL (7.4-10.4); Monocytes # 0.7 10^3/uL (0.2-0.9); Monocytes % 4.3 %; Neutrophils # 11.56 10^3/uL (1.8-7.7); Neutrophils % 75.7 %; Nucleated Red Blood Cells % 0 %; Platelet Count 262 10^3/cmm (130-400); Red Blood Count 5.04 10^6/uL (4.1-5.3); Red Cell Distribution Width 15.3 % (12.1-15.1); White Blood Count 15.3 10^3/uL (4.0-10.0)
[2022-01-02 12:29] LABS: Troponin(5th) Baseline 60 ng/L (0-10)
[2022-01-02 12:31] LABS: SARS Covid-2 Antigen Negative (Negative)
[2022-01-02 12:31] LABS: Add Urine Microscopic? YES; Bilirubin Urine Neg (Negative); Blood Urine 2+ (Negative); Glucose Urine UA Norm (Normal); Ketones Urine Negative (Negative); Leukocyte Esterase Urine 1+ (Negative); Nitrate Urine Positive (Negative); Protein Urine 1+ (Negative); Specific Gravity, Urine 1.015 (1.005-1.030); Urine Appearance Cloudy (CLEAR); Urine Color Yellow (Yellow); Urobilinogen Urine Norm (Negative); pH Urine 6.5 (5-7)
[2022-01-02 12:32] VITALS: BP 135/67; PULSE 70; RESP 16; O2SAT 92
[2022-01-02 12:32] LABS: Alanine Aminotransferase 19 U/L (0-33); Alkaline Phosphatase 186 IU/L (35-105); Aspartate Amino Transferase 20 U/L (0-32); Blood Urea Nitrogen 18 mg/dL (8-23); Calcium 8.8 mg/dL (8.5-10.5); Carbon Dioxide 20 mmol/L (22-29); Chloride 105 mmol/L (98-107); Globulin 3.6 g/dL (1.3-4.6); Glucose 90 mg/dL (65-115); Lipase 19 U/L (13-60); Osmolality Calculated 291 mOsm/kg (285-295); Sodium 140 mmol/L (136-145); Total Bilirubin 0.6 mg/dL (0.15-1.2); Total Protein 7.6 g/dL (6.6-8.7)
[2022-01-02 12:32] LABS: Add Urine Culture? Yes; Bacteria Urine 3+ /hpf; RBC Urine 0-4 /hpf (0-2); Squamous Epithelial Cell Urine 0-4 /hpf (0-5); Triple Phosphate Crystal Urine 0-4 /hpf; WBC Urine 25-40 /hpf (0-5)
[2022-01-02 12:33] LABS: Anion Gap 18.8 (5-19); Potassium 3.8 mmol/L (3.5-5.1)
[2022-01-02] MEDS: pantoprazole 40 mg SDV IVP (12:41)
[2022-01-02] MEDS: ondansetron 2 mg/ML SDV 2 mL 4 MG IVP (12:42)
[2022-01-02] MEDS: lidocaine 2% viscous 15 ML, aluminum-mag hydrox-simethicon 30 ML, sucralfate oral liq 1 GM PO (12:43)
[2022-01-02] MEDS: sodium chloride 0.9% 500 ML IV (12:48)
--- NOTE | 2022-01-02 12:50 | PC.NURSE ---
Pt gone to CT at this time.
[2022-01-02] MEDS: iohexol 300 mg/mL 100 mL Btl IV (13:00)
[2022-01-02 13:18] VITALS: BP 110/36; PULSE 69; RESP 16; O2SAT 94
[2022-01-02 14:04] VITALS: BP 114/57; PULSE 68; RESP 16; O2SAT 92
[2022-01-02 14:27] LABS: Troponin 5 2HR 64.27 ng/L (0-10)
[2022-01-02 14:28] LABS: Troponin 5 2HR Delta 4.27 ABS# (0-10)
[2022-01-02 14:45] VITALS: BP 130/72; PULSE 74; RESP 16; O2SAT 92
--- NOTE | 2022-01-02 14:46 | PC.NURSE ---
Pt provided applesauce and pudding at this time for PO challenge
== END 2022-01-02 15:25 | disposition home or self-care (01) ==
PROVIDERS: Emergency Provider Emergency Medicine; PCP Family Medicine
DX: K29.80 Duodenitis without bleeding (principal); N39.0 Urinary tract infection, site not specified; Z79.02 Long term (current) use of antithrombotics/antiplatelets; Z86.73 Personal history of transient ischemic attack (TIA), and cerebral infarction without residual deficits; E78.5 Hyperlipidemia, unspecified; I10 Essential (primary) hypertension; Z87.440 Personal history of urinary (tract) infections; Z20.822 Contact with and (suspected) exposure to COVID-19
CPT/HCPCS: 36415; 71045; 74177; 80053; 81001; 83690; 84484; 85025; 87077; 87086; 87186; 87426; 93005; 96361; 96374; 96375; 99284; C9113; J2405; J7040; Q9967

== ENCOUNTER 2022-02-14 10:49 | Outpatient (CLI) | payer MEDICARE, SELFPAY ==
--- NOTE | 2022-02-14 11:04 | XR_ITS ---
WS: [id number] XR chest 2V* [id number] REASON FOR EXAM: ACUTE LOWER RESPIRATORY TRACT INFECTION FINDINGS: Moderate tortuosity, ectasia, calcification of the thoracic aorta without aneurysmal dilatation. Hear t is at the upper limits of normal in size. Vague masslike density projecting over the lateral left mid lung which is been seen on previous exam[facility] [place] [facility] 08/09/2020 and unchanged. Possibly pleural in nature. Coarse interstitial lung opacities in both lower and midlung styles predominating on the right. These findings are part chronic however there may now be superimposition of a subacute process such as pne umonitis or congestive heart failure as these findings appear more prominent than on the previous exa minations. XR/XR chest 2V* [id number] IMPRESSION: Possible subacute pulmonary parenchymal abnormalities superimposed on chronic a bnormality as above. Congestive heart failure versus pneumonitis.
== END 2022-02-14 10:50 | disposition home or self-care (01) ==
PROVIDERS: PCP Family Medicine; Visit Provider Family Medicine
DX: J22 Unspecified acute lower respiratory infection (principal)
CPT/HCPCS: 71046

== ENCOUNTER 2022-04-07 07:45 | Outpatient (CLI) | payer MEDICARE, OTHER, SELFPAY ==
--- NOTE | 2022-04-07 07:57 | USCV_ITS ---
Sil Diaz Age: 82 Gender: F : 1940 Exam Date: 04/07/2022 08:25 Ordering Phys: Rios Anaya DO Technologist: Fani Enriquez [place] [facility] [place]: CHF BP: 139 / 72 HR: 58 Rhythm: Sinus Technical Quality: Adequate MEASUREMENTS (Male / Female) Normal Values 2D ECHO LV Diastolic Diameter PLAX 3.8 cm 4.2 - 5.9 / 3.9 - 5.3 cm LV Systolic Diameter PLAX 3.4 cm LV Chamber Size 2.7 cm IVS Diastolic Thickness 1.0 cm 0.6 - 1.0 / 0.6 - 0.9 cm IVS Systolic Thickness 1.2 cm LVPW Diastolic Thickness 1.3 cm 0.6 - 1.0 / 0.6 - 0.9 cm LVPW Systolic Thickness 1.4 cm RV Chamber Size 2.1 cm LVOT Diameter 2.0 cm LV Ejection Fraction 2D Teich 18.6 % LV Ejection Fraction MOD 2C 67.7 % LV Ejection Fraction 2C AL 68.7 % LA Diameter 3.2 cm LA Width 2.7 cm LA Height 3.5 cm RA Width 2.4 cm RA Height 3.4 cm Aorta at Sinotubular Diameter 1.9 cm IVC Diameter 1.2 cm M-MODE Aortic Annulus Diameter 2.9 cm LA Ao Ratio MM 1.4 MV E Point Septal Separation 0.8 cm DOPPLER AV Peak Velocity 144.0 cm/s LVOT Peak Velocity 78.0 cm/s AV Area Cont Eq vti 1.7 cm squared AV Area Cont Eq pk 1.7 cm squared MV Area PHT 2.6 cm squared Mitral E to A Ratio 0.7 MV E' Velocity 43.0 cm/s Mitral E to MV E' Ratio 16.6 Mitral E to LV E' Lateral Ratio 16.6 Mitral E to LV E' Septal Ratio 16.9 TR Peak Velocity 110.7 cm/s TR Peak Gradient 4.9 mmHg TR Mean Velocity 102.8 cm/s TR Mean Gradient 4.7 mmHg TR Velocity Time Integral 37.0 cm Right Atrial Pressure 3.0 mmHg Pulmonary Artery Systolic Pressu 7.9 mmHg PV Peak Velocity 56.0 cm/s RV Acceleration Time 0.1 s RV Ejection Time 0.4 s RV AcT/ET 0.3 FINDINGS Left Ventricle Normal left ventricular size. LV systolic function is normal with EF of 55-60%. No regional wall motion abnormalities. Left ventricular hypertrohy. Grade 1 disatolic dysfunction Right Ventricle The right ventricle is normal in size and function. Right Atrium The right atrium is normal in size. Left Atrium The left atrium is normal in size. Mitral Valve Structurally normal mitral valve without significant stenosis or prolapse. There is mild mitral regurgitation. Aortic Valve Thickened aortic valve without significant stenosis. There is no aortic regurgitation. Tricuspid Valve Structurally normal tricuspid valve without significant stenosis. Trace tricuspid regurgitation. RVSP is normal Pulmonic Valve Structurally normal pulmonic valve without significant stenosis. There is no pulmonic regurgitation. Pericardium Normal pericardium without effusion. Aorta Normal ascending aorta dimension. CONCLUSIONS LV systolic function is normal with EF 55 to 60%. Left ventricular hypertrophy is noted. Grade 1 diastolic dysfunction. Mild mitral regurgitation. Trace tricuspid regurgitation. Compared to prior echocardiogram from 03/30/2021, no significant changes are seen Bernard Wakefield MD (Electronically Signed) Final Date: 13 Apr 2022 11:58 S
== END 2022-04-07 07:46 | disposition home or self-care (01) ==
LOC: RAD 07:47
PROVIDERS: PCP Family Medicine; Visit Provider Family Medicine
DX: I50.9 Heart failure, unspecified (principal)
CPT/HCPCS: 93306

== ENCOUNTER → 2022-07-10 12:16 | Outpatient (BNVA) | payer MEDICARE, SELFPAY | PROVIDERS: PCP Family Medicine; Visit Provider Internal Medicine | DX: I73.9 Peripheral vascular disease, unspecified (principal); E78.5 Hyperlipidemia, unspecified; I10 Essential (primary) hypertension; M79.606 Pain in leg, unspecified; Z87.891 Personal history of nicotine dependence | CPT/HCPCS: 99203; 99204 ==

== ENCOUNTER 2022-07-19 17:37 | Inpatient (IN) | payer MEDICARE, SELFPAY ==
[2022-07-19] VITALS (8 sets, daily range): BP systolic 136–171; BP diastolic 67–89; PULSE 60–66; RESP 16–20; TEMP 36.1–36.6; O2SAT 94–98; BMI 27.3
--- NOTE | 2022-07-19 17:42 | W.ED.FALL ---
HPI - Fall General: Chief Complaint: Fall Stated Complaint: RIGHT HIP PAIN S/P FALL Time Seen by Provider: 07/19/22 17:41 History of Present Illness: Ms. Diaz is an 82-year-old lady on Plavix who presents to the emergency department due to fall with hip pain. She reports being out in the garden when she was trying to pull weeds and her hand slipped making her land on her right side. She did end up staying down the ground for approximately 45 minutes that she was unable to get up. Does have right hip pain. Denies other recent changes in health. Denies loss of consciousness. Intensity pain is moderate becomes severe with range of motion or palpation. Shooting stabbing in quality. No other specific changes in health, exacerbating, or alleviating factors identified. Onset (ago): minute(s) Fall from: standing Place fall occurred: home Loss of consciousness: None Prolonged down time: minute(s) Symptoms prior to fall: none Context: tripped/slipped Review of Systems General: Reports: 10 or more systems reviewed and unremarkable except in HPI and below PFSH ED PFSH: Medical History Acute respiratory failure with hypoxia CAP (community acquired pneumonia) Cat bite CVA (cerebral vascular accident) Dyslipidemia GERD (gastroesophageal reflux disease) Heart murmur HTN (hypertension) Sepsis UTI (urinary tract infection) Surgical History H/O lumbar discectomy History of cholecystectomy Family History Other Family history non-contributory Social History Smoking and tobacco status: former smoker Alcohol intake: never Housing: House Physical Exam Const: COMMON NORMALS: alert GENERAL APPEARANCE: cooperative and well developed OTHER: Somewhat frail HENMT: COMMON NORMALS: normocephalic and atraumatic HEAD & SCALP: normocephalic and atraumatic OTHER: No ramirez signs or raccoon eyes. No otorrhea or rhinorrhea. Jaw alignment normal. Dentition baseline. No obvious bony step-offs. No septal hematoma. No evidence of ocular entrapment. Eye: COMMON NORMALS: conjunctivae normal CONJUNCTIVA: Yes conjunctivae normal SCLERA: sclerae normal Neck/C-Spine: COMMON NORMALS: supple GENERAL: Yes trachea midline Resp: COMMON NORMALS: normal respiratory effort and clear to auscultation bilaterally EFFORT & INSPECTION: Yes able to speak in complete sentences AUSCULTATION: clear to auscultation bilaterally Cardio: COMMON NORMALS: regular rate and regular rhythm RATE: regular rate RHYTHM: regular rhythm GI: COMMON NORMALS: Soft to palpation PALPATION: Yes Soft to palpation and No Tenderness to palpation present (GI) Extremity: NARRATIVE EXTREMITY EXAM: Tenderness palpation of proximal femur. Limited range of motion. Distal CMS intact. GENERAL: Yes normal exam except as noted and No edema Neuro: COMMON NORMALS: moves all extremities SENSORIUM/ORIENTATION: Yes alert and No Orientation impaired Psych: COMMON NORMALS: mental status grossly normal and Normal thought process present THOUGHT PROCESS: Normal thought process present Course ED course: - Patient was seen and evaluated by me at bedside - Patient placed on cardiac monitors, IV access obtained - Initial evaluation notable for exam as above. Head to toe exam performed. - Labs and xrays personally interpreted by me EKG shows sinus rhythm with PACs, no STEMI -Analgesia given and Tdap ordered for abrasions, no laceration repair required. - Labs notable for leukocytosis which may be reactive. Normal hemoglobin. Metabolic panel without significant abnormality. Delta troponin negative. - Imaging notable for negative head and neck CT. Chest x-ray without lobar consolidation or pneumothorax. Nondisplaced right sided intertrochanteric fracture identified. -Discussed with orthopedics who was consulted - Upon serial reexamination after treatment the patient was improved with analgesia - Based on patient history, evaluation, and testing as interpreted the most likely cause of the patient's condition is fall with hip fracture - The results of ED evaluation were discussed with the patient including plan for admission due to requirement for level of care not available if discharged to prevent significant worsening/deterioration. - Admitting service was contacted and Dr Ramon with the hospitalist service agreed to admit the patient - Patient was admitted without further deterioration or significant events. Note: Click bubbles or prepopulated styles in note writing are used for assistance with data collection and billing and are inherently more limited than narrative and other text portions of this note. Please use narrative for additional clinical history and defer to narrative/free test for any case of contradictory information. If information appears in only free text or click bubble it should be considered present or absent as reported. Please contact note telegraphic typewriter repairer for clarifications of clinical information or contradictory information. MDM is a brief summary, contradictory or erroneous seeming information should be clarified and full note should be reviewed. Vital Signs: Vital signs: Vital Signs Temperature 98.3 F 07/25/22 13:38 Pulse Rate 81 07/25/22 13:38 Respiratory Rate 17 07/25/22 13:38 Blood Pressure 126/77 07/25/22 13:38 Pulse Oximetry 90 07/25/22 13:38 Oxygen Delivery Me thod 07/25/22 12:00 Oxygen Flow Rate 1.5 07/25/22 07:57 MDM - Fall Medical Decision Making 82-year-old lady presenting with fall. Found to have right hip fracture. Orthopedics consulted and patient admitted to medicine service for definitive management. Medical Records I reviewed the patient's medical records. Lab Data I reviewed the patient's lab results. : 07/25/22 05:07 07/25/22 05:07 Radiology Impressions Cervical Spine CT 07/19/22 18:06 IMPRESSION: No acute findings. Chest X-Ray 07/19/22 18:06 IMPRESSION: No acute findings. Head CT 07/19/22 18:06 IMPRESSION: No acute intracranial abnormality. Foot X-Ray 07/19/22 18:13 IMPRESSION: No acute findings. Hip/Pelvis X-Ray 07/22/22 00:00 Impression: Internal fixation of intertrochanteric right hip fracture. Laboratory Results WBC 15.4 10^3/uL (4.0-10.0) H 07/19/22 19:36 RBC 4.32 10^6/uL (4.1-5.3) 07/19/22 19:36 Hgb 11.9 g/dL (11.5-15.3) 07/19/22 19:36 Hct 39.2 % (37.0-47.0) 07/19/22 19:36 MCV 90.7 fl (81-99) 07/19/22 19:36 MCH 27.5 pg (28.0-34.0) L 07/19/22 19:36 MCHC 30.4 g/dL (30.0-36.0) 07/19/22 19:36 RDW 15.3 % (12.1-15.1) H 07/19/22 19:36 Plt Count 246 10^3/cmm (130-400) 07/19/22 19:36 MPV 9.6 fL (7.4-10.4) 07/19/22 19:36 Neut % (Auto) 68.8 % 07/19/22 19:36 Lymph % (Auto) 26.3 % 07/19/22 19:36 [place] % (Auto) 3.2 % 07/19/22 19:36 Eos % (Auto) 0.6 % 07/19/22 19:36 Baso % (Auto) 0.5 % 07/19/22 19:36 Neut # (Auto) 10.58 10^3/uL (1.8-7.7) H 07/19/22 19:36 Lymph # (Auto) 4.1 10^3/uL (0.8-4.8) 07/19/22 19:36 [place] # (Auto) 0.5 10^3/uL (0.2-0.9) 07/19/22 19:36 Eos # (Auto) 0.1 10^3/uL (0.0-0.8) 07/19/22 19:36 Baso # (Auto) 0.1 10^3/uL (0.0-0.1) 07/19/22 19:36 Nucleated RBC % (auto) 0 % 07/19/22 19:36 Nucleated RBCs # 0.0 /100WBC 07/19/22 19:36 PT 13.80 SECONDS (12.1-14.9) 07/19/22 19:36 INR 1.03 (0.8-1.2) 07/19/22 19:36 APTT 21.5 SECONDS (23.9-36.7) L 07/19/22 19:36 Sodium 140 mmol/L (136-145) 07/19/22 19:36 Potassium 4.0 mmol/L (3.5-5.1) 07/19/22 19:36 Chloride 106 mmol/L (98-107) 07/19/22 19:36 Carbon Dioxide 20 mmol/L (22-29) L 07/19/22 19:36 Anion Gap 18.0 (5-19) 07/19/22 19:36 BUN 20 mg/dL (8-23) 07/19/22 19:36 Creatinine 0.8 mg/dL (0.5-0.9) 07/19/22 19:36 GFR Calculation Not Reportable 07/19/22 19:36 Glucose 101 mg/dL (65-115) 07/19/22 19:36 Calculated Osmolality 293 mOsm/kg (285-295) 07/19/22 19:36 Calcium 8.8 mg/dL (8.5-10.5) 07/19/22 19:36 Total Bilirubin 0.4 mg/dL (0.15-1.2) 07/19/22 19:36 AST 14 U/L (0-32) 07/19/22 19:36 ALT 12 U/L (0-33) 07/19/22 19:36 Alkaline Phosphatase 138 U/L (35-105) H 07/19/22 19:36 Creatine Kinase 80 U/L (26-192) 07/19/22 19:36 Troponin T Baseline 12 ng/L (0-10) H 07/19/22 19:36 Total Protein 6.7 g/dL (6.6-8.7) 07/19/22 19:36 Albumin 3.6 g/dL (3.5-5.2) 07/19/22 19:36 Globulin 3.1 g/dL (1.3-4.6) 07/19/22 19:36 Discharge Plan Discharge Patient Disposition: Admitted As Inpatient Admit Provider: Grabiel Ramon Clinical Impression: Closed fracture of right hip Condition: Stable Discharge Diet: Regular Discharge Activity: Resume usual activity and Increase activity as tolerated Coding Level of Care Code ED Catering Manager for Mertg Fwd Exam Comprehensive
--- NOTE | 2022-07-19 18:06 | CTR_ITS ---
PROCEDURE INFORMATION: Exam: CT Head Without Contrast Exam date and time: 07/19/2022 6:50 PM Age: 82 years old Clinical indication: Injury or trauma; Fall; Blunt trauma (contusions or hematomas); Without loss of consciousness; Injury date: 07-19-22; Injury details: Fell and tripped pulling weeds onto concrete sidewalk; Patient HX: Pain in RT hip and foot; Additional info: Fall, AMS TECHNIQUE: Imaging protocol: Computed tomography of the head without contrast. Radiation optimization: All CT scans at this facility use at least one of these dose optimization techniques: automated exposure control; mA and/or kV adjustment per patient size (includes targeted exams where dose is matched to clinical indication); or iterative reconstruction. COMPARISON: CT head wo con* [id number] 08/09/2020 8:18 PM RADIATION DOSE METRICS: Total DLP (mGy-cm): 1068.39 FINDINGS: Brain: Marked periventricular white matter low densities are most consistent with chronic small vessel ischemic change; findings appear mildly progressed in the interval. No findings of intracranial hemorrhage. Cerebral ventricles: No ventriculomegaly. Paranasal sinuses: Visualized sinuses are unremarkable. No fluid levels. Mastoid air cells: Visualized mastoid air cells are well aerated. Bones/joints: No acute findings. Soft tissues: Unremarkable. CT/CT head wo con* [id number] IMPRESSION: No acute intracranial abnormality.
--- NOTE | 2022-07-19 18:06 | XRR_ITS ---
PROCEDURE INFORMATION: Exam: XR Chest Exam date and time: 07/19/2022 6:30 PM Age: 82 years old Clinical indication: Injury or trauma; Fall; Blunt trauma (contusions or hematomas) TECHNIQUE: Imaging protocol: Radiologic exam of the chest. Views: 1 view. COMPARISON: CR XR chest 2V* [id number] 02/14/2022 11:06 AM FINDINGS: Lungs: Diffuse coarsening of the lung parenchyma. No consolidation. Pleural spaces: No pleural effusion. No pneumothorax. Heart/Mediastinum: No cardiomegaly. Bones/joints: Visualized osseous structures are intact. XR/XR chest 1V portable [id number] IMPRESSION: No acute findings.
--- NOTE | 2022-07-19 18:06 | XRR_ITS ---
PROCEDURE INFORMATION: Exam: XR Right Hip Exam date and time: 07/19/2022 6:30 PM Age: 82 years old Clinical indication: Injury or trauma; Fall; Blunt trauma (contusions or hematomas); Right; Hip; Additional info: Fall, hip pain, please also obtain pelvis TECHNIQUE: Imaging protocol: Radiologic exam of the Right hip. Views: 1 view hip with pelvis when performed. COMPARISON: CT abdomen pelvis w con* [id number] 01/02/2022 12:57 PM FINDINGS: Bones/joints: Nondisplaced intertrochanteric right hip fracture. The rest of the osseous structures are intact. Soft tissues: Unremarkable. XR/XR hip RT 2-3V wo/w pel* [id number] IMPRESSION: Nondisplaced intertrochanteric right hip fracture.
--- NOTE | 2022-07-19 18:06 | CTR_ITS ---
PROCEDURE INFORMATION: Exam: CT Cervical Spine Without Contrast Exam date and time: 07/19/2022 6:50 PM Age: 82 years old Clinical indication: Injury or trauma; Fall; Blunt trauma; Injury date: 07-19-22; Injury details: Fell and tripped while pulling weeds onto [place]; Patient HX: Pain in RT hip and RT foot; Additional info: Fall, AMS TECHNIQUE: Imaging protocol: Computed tomography of the cervical spine without contrast. Radiation optimization: All CT scans at this facility use at least one of these dose optimization techniques: automated exposure control; mA and/or kV adjustment per patient size (includes targeted exams where dose is matched to clinical indication); or iterative reconstruction. COMPARISON: CT cervical spin wo con* [id number] 08/09/2020 8:20 PM RADIATION DOSE METRICS: Total DLP (mGy-cm): 192 FINDINGS: Bones/joints: No findings of fracture. Alignment unchanged. Discs/Spinal canal/Neural foramina: Multilevel degenerative disc change. All multilevel facet arthrosis. Lungs: Lung apices are normal. Soft tissues: Unremarkable. CT/CT cervical spin wo con* [id number] IMPRESSION: No acute findings.
--- NOTE | 2022-07-19 18:13 | XRR_ITS ---
PROCEDURE INFORMATION: Exam: XR Right Foot Exam date and time: 07/19/2022 6:30 PM Age: 82 years old Clinical indication: Injury or trauma; Fall; Blunt trauma; Foot; Right; Additional info: Fall, pain TECHNIQUE: Imaging protocol: Radiologic exam of the Right foot. Views: 3 or more views. COMPARISON: No relevant prior studies available. FINDINGS: Bones/joints: Osseous structures are intact. Negative for fracture. Soft tissues: Normal. XR/XR foot RT min 3V* [id number] IMPRESSION: No acute findings.
--- NOTE | 2022-07-19 18:20 | ECG_ITS ---
[facility] Test Date: 2022-07-19 Pat Name: Sil Diaz Department: Room: Gender: Female Supervisor Denture Department: : 1940 Requested By: Edgar Johnson Order Number: [id number] Terry MD: Steffi Cuevas M.D. Measurements Intervals [place] Rate: 85 P: 70 CT: 152 QRS: 51 QRSD: 97 T: 65 QT: 426 QTc: 507 Interpretive Statements SINUS RHYTHM WITH FREQUENT SUPRAVENTRICULAR PREMATURE COMPLEXES ABNORMAL RHYTHM ECG Compared to ECG 01/02/2022 12:29:08 No significant changes Electronically Signed On 07-21-2022 8:01:42 CDT by Steffi Cuevas M.D. [id number]
[2022-07-19] MEDS: morphine 4 mg/mL SDV 1 mL IVP (18:32)
[2022-07-19 19:49] LABS: Basophils # 0.1 10^3/uL (0.0-0.1); Basophils % 0.5 %; Eosinophils # 0.1 10^3/uL (0.0-0.8); Eosinophils % 0.6 %; Hematocrit 39.2 % (37.0-47.0); Hemoglobin 11.9 g/dL (11.5-15.3); Lymphocytes # 4.1 10^3/uL (0.8-4.8); Lymphocytes % 26.3 %; Mean Corpuscular HGB Conc 30.4 g/dL (30.0-36.0); Mean Corpuscular Hemoglobin 27.5 pg (28.0-34.0); Mean Corpuscular Volume 90.7 fl (81-99); Mean Platelet Volume 9.6 fL (7.4-10.4); Monocytes # 0.5 10^3/uL (0.2-0.9); Monocytes % 3.2 %; Neutrophils # 10.58 10^3/uL (1.8-7.7); Neutrophils % 68.8 %; Nucleated Red Blood Cells % 0 %; Platelet Count 246 10^3/cmm (130-400); Red Blood Count 4.32 10^6/uL (4.1-5.3); Red Cell Distribution Width 15.3 % (12.1-15.1); White Blood Count 15.4 10^3/uL (4.0-10.0)
[2022-07-19 20:00] LABS: INR 1.03 (0.8-1.2); Partial Thromboplastin Time 21.5 SECONDS (23.9-36.7)
--- NOTE | 2022-07-19 20:07 | ECG_ITS ---
[facility] Test Date: 2022-07-20 Pat Name: Sil Diaz Department: Room: 278 Gender: Female Political Scientist: : 1940 Requested By: Edgar Johnson Order Number: [id number] Terry MD: Steffi Cuevas M.D. Measurements Intervals [place] Rate: 55 P: 52 GA: 154 QRS: 36 QRSD: 106 T: 56 QT: 449 QTc: 433 Interpretive Statements SINUS BRADYCARDIA Compared to ECG 07/20/2022 01:05:27 No significant changes Electronically Signed On 07-21-2022 8:09:21 CDT by Steffi Cuevas M.D. [id number] f
[2022-07-19 20:17] LABS: Alanine Aminotransferase 12 U/L (0-33); Albumin Level 3.6 g/dL (3.5-5.2); Alkaline Phosphatase 138 U/L (35-105); Aspartate Amino Transferase 14 U/L (0-32); Blood Urea Nitrogen 20 mg/dL (8-23); Calcium 8.8 mg/dL (8.5-10.5); Carbon Dioxide 20 mmol/L (22-29); Chloride 106 mmol/L (98-107); Creatine Phosphokinase 80 U/L (26-192); Globulin 3.1 g/dL (1.3-4.6); Glucose 101 mg/dL (65-115); Osmolality Calculated 293 mOsm/kg (285-295); Sodium 140 mmol/L (136-145); Total Bilirubin 0.4 mg/dL (0.15-1.2); Total Protein 6.7 g/dL (6.6-8.7)
[2022-07-19 20:18] LABS: Troponin(5th) Baseline 12 ng/L (0-10)
--- NOTE | 2022-07-19 21:17 | PM.HP ---
Providers/Chief Complaint Admitting Physician: Grabiel Ramon MD Primary Care Provider: Rios Anaya DO Chief Complaint: RIGHT HIP PAIN S/P FALL History of Present Illness Sil Diaz is a 82 year old female with a past medical history of multiple CVA on Plavix, dyslipidemia, GERD, hypertension, who presents [facility] for a fall. She tells me that this afternoon, she was pulling weeds in her yard, when she fell on her right side, hitting her right hip, no loss of consciousness, no significant head trauma, no chest pain, no shortness of breath, no seizure-like symptoms no strokelike symptoms. She is at her only complaint was severe right hip pain, pain with range of motion, Review of Systems Card: Denies: chest pain Resp: Denies: dyspnea GI: Denies: abdominal pain Medications/Allergies Home Medications Medication Instructions Recorded Confirmed Last Taken Type clopidogrel 75 mg tablet (Plavix) 75 mg PO DAILY 02/07/20 07/19/22 07/18/22 History atorvastatin 40 mg tablet 40 mg PO DAILY 08/09/20 07/19/22 07/18/22 History citalopram 40 mg tablet 40 mg PO DAILY 08/09/20 07/19/22 07/18/22 History lisinopril 30 mg tablet 30 mg PO DAILY 08/09/20 07/19/22 07/18/22 History pantoprazole 40 mg tablet,delayed 40 mg PO DAILY 08/09/20 07/19/22 07/18/22 History release meloxicam 15 mg tablet 15 mg PO DAILY #30 tabs 07/04/22 07/19/22 07/18/22 Rx fluticasone propionate 115 2 puff inhalation BID 07/10/22 07/19/22 07/18/22 History mcg-salmeterol 21 mcg/actuation HFA inhaler (Advair HFA) acetaminophen 500 mg tablet 500 mg PO Q6H PRN Pain 07/19/22 07/19/22 Unknown History Allergies Allergy/AdvReac Type Severity Reaction Status Date / Time Sulfa (Sulfonamide Allergy RASH Verified 07/10/22 12:33 Antibiotics) PFSH Acute PFSH: Medical History (Updated 07/19/22 @ 21:19 by Grabiel Ramon MD) Acute respiratory failure with hypoxia CAP (community acquired pneumonia) Cat bite CVA (cerebral vascular accident) Dyslipidemia GERD (gastroesophageal reflux disease) Heart murmur HTN (hypertension) Sepsis UTI (urinary tract infection) Surgical History H/O lumbar discectomy History of cholecystectomy Family History Other Family history non-contributory Social History Smoking and tobacco status: former smoker Alcohol intake: never Housing: House Vitals/I&O/Wt Last Vital Signs Temp 97.8 F 07/19/22 19:43 Pulse 64 07/19/22 19:43 Resp 17 07/19/22 19:43 BP 157/70 07/19/22 19:43 Pulse Ox 94 07/19/22 19:43 O2 Del Method 07/19/22 19:43 O2 Flow Rate 2 07/19/22 19:43 Weight last 48 hrs Weight 59.421 kg Physical Exam Const: COMMON NORMALS: no acute distress and patient oriented x3 HENMT: COMMON NORMALS: normocephalic HEAD & SCALP: normocephalic Neck/C-Spine: COMMON NORMALS: no JVD Resp: COMMON NORMALS: normal respiratory effort, No retractions, No use of accessory muscles and clear to auscultation bilaterally AUSCULTATION: clear to auscultation bilaterally Cardio: COMMON NORMALS: no JVD, regular rate, regular rhythm, S1 normal heart sound present and S2 normal heart sound present RATE: regular rate RHYTHM: regular rhythm HEART SOUNDS: S1 normal heart sound present and S2 normal heart sound present GI: COMMON NORMALS: Normal to inspection, nondistended, normoactive bowel sounds present, Soft to palpation, non-tender, No hepatosplenomegaly present, no masses and no bruits PALPATION: Yes Soft to palpation and Yes No hepatosplenomegaly present Extremity: COMMON NORMALS: capillary refill normal, no clubbing, cyanosis or edema, no calf tenderness and no pedal edema Neuro: COMMON NORMALS: patient oriented x3, CN's II-XII intact bilaterally, moves all extremities and no focal motor deficits Psych: COMMON NORMALS: mental status grossly normal Data : 07/19/22 19:36 07/19/22 19:36 A&P Assessment and plan (1) Closed fracture of right hip: Status: Acute (2) HTN (hypertension): Status: Acute (3) Dyslipidemia: Status: Acute (4) CVA (cerebral vascular accident): Status: Acute Plan Right hip fracture, closed -Is on Plavix, her last dose was 07/18/2022, hold -Morphine for pain control -Zofran for nausea -SCDs for DVT prophylaxis, hold Lovenox for now -N.p.o. midnight -Patient was told by her dentist as she has had jaw surgery that she cannot be be put on under general anesthesia due to her jaw surgery? but she never had a adverse reaction to anesthesia in the past History of multiple CVAs, hold Plavix, continue statin Hypertension, continue home medications Full code Attestations Medical Necessity Statement*: Patient requires hospitalization, inpatient, greater than 2 midnights, for hip fracture, Coding Level of Care Code Acute Wholesale Account Executive for [facility] Diagnoses Closed fracture of right hip S72.001A HTN (hypertension) I10 Dyslipidemia E78.5 CVA (cerebral vascular accident) I63.9
--- NOTE | 2022-07-19 21:28 | PC.NURSE ---
Report called to Eva, patient moving to 278.2, patients daughter informed of room number before leaving hospital
[2022-07-19] MEDS: tetanus-dipt-pertussis 0.5 mL SDV IM (22:02)
[2022-07-19 22:05] LABS: Troponin 5 2HR 12.79 ng/L (0-10)
[2022-07-19 22:06] LABS: Troponin 5 2HR Delta 0.79 ABS# (0-10)
--- NOTE | 2022-07-19 23:23 | PC.NURSE ---
Spoke with regarding patient complaints of pain with any movement, would require rolling for bedpan use. Requesting sears catheter for patient with hip fracture. ordered to insert sears.
[2022-07-19] MEDS: sodium chloride 0.9% 1,000 ML 75 ML IV (23:33)
[2022-07-19] MEDS: morphine 4 mg/mL SDV 1 mL 2 MG IVP (23:34)
[2022-07-20] VITALS (13 sets, daily range): BP systolic 115–145; BP diastolic 67–78; PULSE 51–79; RESP 14–20; TEMP 36.4–37.3; O2SAT 91–99
--- NOTE | 2022-07-20 00:07 | ECG_ITS ---
[facility] Test Date: 2022-07-20 Pat Name: Sil Diaz Department: Room: 278 Gender: Female Roving Marker: : 1940 Requested By: Edgar Johnson Order Number: [id number] Terry MD: Steffi Cuevas M.D. Measurements Intervals [place] Rate: 58 P: 48 MS: 155 QRS: 21 QRSD: 106 T: 52 QT: 455 QTc: 447 Interpretive Statements SINUS BRADYCARDIA Compared to ECG 07/19/2022 18:20:10 Sinus rhythm no longer present Electronically Signed On 07-21-2022 8:09:56 CDT by Steffi Cuevas M.D. [id number]
[2022-07-20 00:35] LABS: Add Urine Microscopic? YES; Bilirubin Urine Neg (Negative); Blood Urine 2+ (Negative); Glucose Urine UA Norm (Normal); Ketones Urine Negative (Negative); Leukocyte Esterase Urine 1+ (Negative); Nitrate Urine Positive (Negative); Protein Urine Neg (Negative); Urine Appearance SL Hazy (CLEAR); Urine Color Yellow (Yellow); Urobilinogen Urine Neg (Negative); pH Urine 5 (5-7)
[2022-07-20 00:37] LABS: Add Urine Culture? Yes; Bacteria Urine 3+ /hpf; Mucus Urine TRACE /hpf; RBC Urine 0-4 /hpf (0-2)
[2022-07-20 01:56] LABS: Troponin 5 6HR 11.96 ng/L (0-10)
[2022-07-20 02:08] LABS: Troponin 5 6HR Delta -0.04 ng/L (0-12)
[2022-07-20 06:00] LABS: Basophils # 0.1 10^3/uL (0.0-0.1); Basophils % 0.8 %; Eosinophils # 0.3 10^3/uL (0.0-0.8); Eosinophils % 2.8 %; Hematocrit 38.7 % (37.0-47.0); Lymphocytes # 4.7 10^3/uL (0.8-4.8); Lymphocytes % 45.4 %; Mean Corpuscular HGB Conc 28.4 g/dL (30.0-36.0); Mean Corpuscular Hemoglobin 27.1 pg (28.0-34.0); Mean Corpuscular Volume 95.3 fl (81-99); Mean Platelet Volume 10.3 fL (7.4-10.4); Monocytes # 0.7 10^3/uL (0.2-0.9); Monocytes % 6.4 %; Neutrophils # 4.58 10^3/uL (1.8-7.7); Neutrophils % 44.1 %; Nucleated Red Blood Cells % 0 %; Platelet Count 207 10^3/cmm (130-400); Red Blood Count 4.06 10^6/uL (4.1-5.3); Red Cell Distribution Width 15.4 % (12.1-15.1); White Blood Count 10.4 10^3/uL (4.0-10.0)
[2022-07-20] MEDS: morphine 4 mg/mL SDV 1 mL 2 MG IVP ×2 (07:48→20:18)
[2022-07-20] MEDS: lisinopril 10 mg Tablet 30 MG PO (09:29)
[2022-07-20] MEDS: pantoprazole DR 40 mg Tablet PO (09:29)
[2022-07-20] MEDS: docusate sodium 100 mg Capsule PO ×2 (09:29→18:30)
[2022-07-20] MEDS: citalopram 20 mg Tablet 40 MG PO (09:29)
[2022-07-20] MEDS: atorvastatin 40 mg Tablet PO (09:30)
[2022-07-20 10:22] LABS: INR 1.02 (0.8-1.2)
[2022-07-20 10:39] LABS: Estmated Average Glucose 111; Hemoglobin A1C 5.5 % (4.0-6.0)
[2022-07-20 10:48] LABS: Alanine Aminotransferase 11 U/L (0-33); Albumin Level 3.5 g/dL (3.5-5.2); Alkaline Phosphatase 145 U/L (35-105); Anion Gap 13.1 (5-19); Aspartate Amino Transferase 13 U/L (0-32); Blood Urea Nitrogen 19 mg/dL (8-23); Calcium 8.5 mg/dL (8.5-10.5); Carbon Dioxide 26 mmol/L (22-29); Chloride 111 mmol/L (98-107); Cholesterol 146 mg/dL (0-200); Globulin 2.8 g/dL (1.3-4.6); HDL Cholesterol 43 mg/dL (60-100); LDL Cholesterol Calculated 87 mg/dL (50-129); LDL HDL Ratio 2.02 RATIO (0.00-3.22); Magnesium 2.3 mg/dL (1.7-2.3); NT Pro B Type Natriuretic Pept 388 pg/mL (0-450); Osmolality Calculated 301 mOsm/kg (285-295); Phosphorus 3.2 mg/dL (2.5-4.5); Potassium 5.1 mmol/L (3.5-5.1); Sodium 145 mmol/L (136-145); Thyroid Stimulating Hormone 1.73 uIU/mL (0.27-4.20); Total Bilirubin 0.4 mg/dL (0.15-1.2); Total Protein 6.3 g/dL (6.6-8.7); Triglycerides 81 mg/dL (0-150)
[2022-07-20 10:51] LABS: Glucose 67 mg/dL (65-115)
[2022-07-20] MEDS: sodium chloride 0.9% 1,000 ML 75 ML IV (12:35)
--- NOTE | 2022-07-20 17:39 | PM.PN ---
Subjective Subjective: Patient resting comfortably. No complaints. Questionable mild confusion. Vitals/I&O/Wt Last Vital Signs Temp 97.5 F L 07/20/22 15:51 Pulse 58 L 07/20/22 15:51 Resp 14 07/20/22 15:51 BP 120/67 07/20/22 15:51 Pulse Ox 93 07/20/22 15:51 O2 Del Method 07/20/22 15:51 O2 Flow Rate 2 07/20/22 07:52 07/20/22 07/20/22 07/20/22 06:59 14:59 22:59 Intake Total 0 / 0 977.5 / 977.5 Output Total 0 / 0 Balance 0 / 0 977.5 / 977.5 Weight last 48 hrs Weight 59.421 kg Physical Exam Narrative: No acute distress. Heart regular normal S1-S2 Lungs clear to auscultation Abdomen soft nontender nondistended positive bowel sounds Extremities no clubbing cyanosis or edema Urinary Catheter Management: Martinez: Cath Placed During This Visit: yes Urinary Catheter Date of Insertion: 07/19/22 Urinary Catheter Time of Insertion: 22:00 Data : 07/20/22 05:10 07/20/22 05:43 A&P Assessment and plan (1) Closed fracture of right hip: Status: Acute (2) HTN (hypertension): Status: Acute (3) Dyslipidemia: Status: Acute (4) CVA (cerebral vascular accident): Status: Acute Plan Right hip fracture, closed -Is on Plavix, her last dose was 07/18/2022, hold -Morphine for pain control -Zofran for nausea -SCDs for DVT prophylaxis, hold Lovenox for now -N.p.o. midnight -Patient was told by her dentist as she has had jaw surgery that she cannot be be put on under general anesthesia due to her jaw surgery? but she never had a adverse reaction to anesthesia in the past Discussed with Dr. Fairbanks today. Plan for ORIF on Thursday the . Continue to hold Plavix. History of multiple CVAs, hold Plavix, continue statin Hypertension, continue home medications Full code Attestations Medical Necessity Statement*: Patient requires hospitalization, inpatient, greater than 2 midnights, for hip fracture, Coding Level of Care Code Acute Trenching Machine Operator for Chg Fwd Diagnoses Closed fracture of right hip S72.001A HTN (hypertension) I10 Dyslipidemia E78.5 CVA (cerebral vascular accident) I63.9
--- NOTE | 2022-07-20 22:46 | PM.MISC ---
Miscellaneous Note Purpose of Documentation: Review of X-ray and plan for intervention. Note: I was consulted on this 82 year old woman after a fall and resultant non-displaced intertrochanteric hip fracture. I have reviewed the X-rays and discussed plan with the hospitalist. Due to Plavix use, surgery will be delayed. I will perform a full consult tomorrow and discuss the plan with patient and available family.
[2022-07-20] MEDS: ciprofloxacin 400 MG/200 ML PREMIX 200 MG IV (22:48)
[2022-07-21] VITALS (9 sets, daily range): BP systolic 124–159; BP diastolic 64–82; PULSE 61–75; RESP 16–20; TEMP 36.6–37; O2SAT 92–94
[2022-07-21] MEDS: sodium chloride 0.9% 1,000 ML 75 ML IV ×2 (00:56→15:41)
--- NOTE | 2022-07-21 02:32 | PC.NURSE ---
Spoke with regarding patients diet order. Nurse received report that patient had received full liquid diet but order had not been updated. gave order to advance to full liquid diet as patient is not going to surgery untill Thursday.
[2022-07-21 05:41] LABS: Basophils # 0.1 10^3/uL (0.0-0.1); Basophils % 0.7 %; Eosinophils # 0.4 10^3/uL (0.0-0.8); Eosinophils % 4.1 %; Hematocrit 38.2 % (37.0-47.0); Lymphocytes # 3.7 10^3/uL (0.8-4.8); Lymphocytes % 37.9 %; Mean Corpuscular HGB Conc 28.8 g/dL (30.0-36.0); Mean Corpuscular Hemoglobin 27.2 pg (28.0-34.0); Mean Corpuscular Volume 94.3 fl (81-99); Mean Platelet Volume 10.3 fL (7.4-10.4); Monocytes # 0.6 10^3/uL (0.2-0.9); Monocytes % 5.7 %; Neutrophils # 5.02 10^3/uL (1.8-7.7); Neutrophils % 51.2 %; Nucleated Red Blood Cells % 0 %; Platelet Count 192 10^3/cmm (130-400); Red Blood Count 4.05 10^6/uL (4.1-5.3); Red Cell Distribution Width 15.3 % (12.1-15.1); White Blood Count 9.8 10^3/uL (4.0-10.0)
[2022-07-21 06:10] LABS: Blood Urea Nitrogen 11 mg/dL (8-23); Calcium 8.3 mg/dL (8.5-10.5); Carbon Dioxide 24 mmol/L (22-29); Chloride 108 mmol/L (98-107); Glucose 75 mg/dL (65-115); Osmolality Calculated 288 mOsm/kg (285-295); Sodium 140 mmol/L (136-145)
[2022-07-21 06:13] LABS: Anion Gap 12.3 (5-19); Potassium 4.3 mmol/L (3.5-5.1)
--- NOTE | 2022-07-21 07:58 | PC.OT ---
HOLD OT EVALUATION; AWAITING ORTHO SURGERY
[2022-07-21] MEDS: docusate sodium 100 mg Capsule PO (08:48)
[2022-07-21] MEDS: lisinopril 10 mg Tablet 30 MG PO (08:48)
[2022-07-21] MEDS: citalopram 20 mg Tablet 40 MG PO (08:48)
[2022-07-21] MEDS: pantoprazole DR 40 mg Tablet PO (08:49)
[2022-07-21] MEDS: atorvastatin 40 mg Tablet PO (08:49)
[2022-07-21] MEDS: ciprofloxacin 400 MG/200 ML PREMIX 200 MG IV (11:07)
--- NOTE | 2022-07-21 12:36 | P.ANESASSM_ITS ---
Pre-Anesthetic Assessment Height/Weight: Height 1.47 m Weight 59.421 kg Temp Pulse Resp BP Pulse Ox O2 Del Method O2 Flow Rate 98.2 F 64 16 132/82 94 1 07/21/22 12:00 07/21/22 12:00 07/21/22 12:00 07/21/22 12:00 07/21/22 12:00 07/21/22 08:00 07/21/22 08:00 Preop Diagnosis: Right intertrochanteric hip fracture Operation Date: 07/22/22 17:10 Proposed Procedures p Trochanteric Femoral Nail(Right) - Florinda Everett MD Familial anesthetic complications: From Doctor Yenny's note 07/19/22 -Patient was told by her dentist as she has had jaw surgery that she cannot be be put on under general anesthesia due to her jaw surgery? but she never had a adverse reaction to anesthesia in the past I discussed with the patient Last intake: 1130 on 07/21/22 had a spoonful of tomato soup and finished 1 pudding cup. For breakfast patient had 1/2 serving of grits. Social No alcohol and No tobacco Exam alert, oriented x 3, clear to auscultation bilaterally and regular rate & rhythm Oriented to month, day of week, year, president Airway Submandibular: within normal limits Cervical ROM: within normal limits Mallampati: Class II Dentition: false Comments: Comments: Normal mouth opening Pulmonary Hx of acute respiratory failure with hypoxia, CAP Denies ALEKSANDRA, COPD on NC O2 on floor currently CV/HEM Anemia (Hgb 11.0 ), Hypertension, Murmur and Peripheral Vascular Disease Prior to fracture able to ascend flight of stairs w/o CP or SOB EKG 07/20/22 ?Interpretive Statements SINUS BRADYCARDIA Compared to ECG 07/19/2022 18:20:10 Sinus rhythm no longer present Electronically Signed On 07-21-2022 8:09:56 CDT by Steffi Cuevas M.D. [email or web address] 04/07/22 CONCLUSIONS ?LV systolic function is normal with EF 55 to 60%. ?Left ventricular hypertrophy is noted. ?Grade 1 diastolic dysfunction. ?Mild mitral regurgitation. ?Trace tricuspid regurgitation. ?Compared to prior echocardiogram from 03/30/2021, no significant ?changes are seen None reported GI Gastroesophageal Reflux Disease (Reflux on empty stomach ) Metabolic Hyperlipidemia Musc/skel Osteoarthritis/DJD Right hip fx Cervical spine CT 07/19/22 CT/CT cervical spin wo con* [id number] IMPRESSION: No acute findings. ? Neuropsych Cerebrovascular Accident Head CT 07/19/22 CT/CT head wo con* [id number] IMPRESSION: No acute intracranial abnormality. Anesthetic Plan ASA status: 3 Anesthesia: Anesthesia Evaluation and General Other: We discussed risk and benefits of general anesthesia including PONV, sore throat (sometimes severe), corneal abrasion, positioning and peripheral nerve injuries, life threatening allergic reaction, post operative ICU admission requiring prolonged intubation, aspiration, stroke, heart attack, , and rare incidences of recall. Patient consents to proceed with general anesthesia. Plan GETA, RSI Risk of > 500 ml blood loss (7ml/kg in children): No Medications/Allergies Home Medications Medication Instructions Recorded Confirmed Last Taken Type clopidogrel 75 mg tablet (Plavix) 75 mg PO DAILY 02/07/20 07/19/22 07/18/22 History atorvastatin 40 mg tablet 40 mg PO DAILY 08/09/20 07/19/22 07/18/22 History citalopram 40 mg tablet 40 mg PO DAILY 08/09/20 07/19/22 07/18/22 History lisinopril 30 mg tablet 30 mg PO DAILY 08/09/20 07/19/22 07/18/22 History pantoprazole 40 mg tablet,delayed 40 mg PO DAILY 08/09/20 07/19/22 07/18/22 History release meloxicam 15 mg tablet 15 mg PO DAILY #30 tabs 07/04/22 07/19/22 07/18/22 Rx fluticasone propionate 115 2 puff inhalation BID 07/10/22 07/19/22 07/18/22 History mcg-salmeterol 21 mcg/actuation HFA inhaler (Advair HFA) acetaminophen 500 mg tablet 500 mg PO Q6H PRN Pain 07/19/22 07/19/22 Unknown History Allergies Allergy/AdvReac Type Severity Reaction Status Date / Time Sulfa (Sulfonamide Allergy RASH Verified 07/10/22 12:33 Antibiotics) Current Medications Generic Name Dose Route Start Last Admin Trade Name Freq PRN Reason Stop Dose Admin Atorvastatin Calcium 40 mg 07/20/22 09:00 07/21/22 08:49 Atorvastatin 40 Mg Tablet PO 40 mg DAILY KENZIE Administration Citalopram Hydrobromide 40 mg 07/20/22 09:00 07/21/22 08:48 Citalopram 20 Mg Tablet PO 40 mg DAILY KENZIE Administration Docusate Sodium 100 mg 07/20/22 09:00 07/21/22 08:48 Docusate Sodium 100 Mg Capsule PO 100 mg BID KENZIE Administration Sodium Chloride 1,000 mls @ 75 mls/hr 07/19/22 22:32 07/21/22 00:56 Sodium Chloride 0.9% IV 75 mls/hr .[id number] KENZIE Administration Ciprofloxacin/Dextrose 400 mg in 200 mls @ 200 mls/hr 07/20/22 22:30 07/21/22 11:07 Cipro IV 200 mls/hr Q12H KENZIE Administration Protocol Lisinopril 30 mg 07/20/22 09:00 07/21/22 08:48 Lisinopril 10 Mg Tablet PO 30 mg DAILY KENZIE Administration Morphine Sulfate 2 mg 07/19/22 22:32 07/20/22 20:18 Morphine 4 Mg/Ml Sdv 1 Ml IVP 2 mg Q4H PRN Administration SEVERE PAIN Pantoprazole Sodium 40 mg 07/20/22 09:00 07/21/22 08:[address] 40 Mg Tablet PO 40 mg DAILY KENZIE Administration PFS Anesthesia Medical History Acute respiratory failure with hypoxia CAP (community acquired pneumonia) Cat bite CVA (cerebral vascular accident) Dyslipidemia GERD (gastroesophageal reflux disease) Heart murmur HTN (hypertension) Sepsis UTI (urinary tract infection) Surgical History H/O lumbar discectomy History of cholecystectomy Family History Other Family history non-contributory Social History Smoking and tobacco status: former smoker Alcohol intake: never Housing: House Data Anesthesia : 07/21/22 05:14 07/21/22 05:14 Short CBC 07/19/22 07/20/22 07/21/22 Range/Units 19:36 05:10 05:14 WBC 15.4 H 10.4 H 9.8 (4.0-10.0) 10^3/uL Hgb 11.9 11.0 L 11.0 L (11.5-15.3) g/dL Hct 39.2 38.7 38.2 (37.0-47.0) % MCV 90.7 95.3 D 94.3 (81-99) fl Plt Count 246 207 192 (130-400) 10^3/cmm Neut % (Auto) 68.8 44.1 51.2 % Neut # (Auto) 10.58 H 4.58 5.02 (1.8-7.7) 10^3/uL BMP 07/19/22 07/20/22 07/21/22 19:36 05:43 05:14 Sodium 140 145 140 Potassium 4.0 5.1 4.3 Chloride 106 111 H 108 H Carbon Dioxide 20 L 26 24 BUN 20 19 11 Creatinine 0.8 0.7 0.6 Glucose 101 67 75 Calcium 8.8 8.5 8.3 L Cardiac Enzymes 07/19/22 07/19/22 07/19/22 Range/Units 19:36 19:36 21:31 Creatine Kinase 80 (26-192) U/L Troponin T Baseline 12 H (0-10) ng/L Troponin T 120 Minute 12.79 H (0-10) ng/L Delta Troponin T 0.79 (0-10) ABS# Troponin T Hi Sens 6Hr (0-10) ng/L Troponin T Hi Sens 6Hr Delta (0-12) ng/L NT-Pro-B Natriuret Pep (0-450) pg/mL 07/20/22 07/20/22 Range/Units 01:25 05:43 Creatine Kinase (26-192) U/L Troponin T Baseline (0-10) ng/L Troponin T 120 Minute (0-10) ng/L Delta Troponin T (0-10) ABS# Troponin T Hi Sens 6Hr 11.96 H (0-10) ng/L Troponin T Hi Sens 6Hr Delta -0.04 L (0-12) ng/L NT-Pro-B Natriuret Pep 388 (0-450) pg/mL Liver Function 07/19/22 07/20/22 Range/Units 19:36 05:43 Total Bilirubin 0.4 0.4 (0.15-1.2) mg/dL AST 14 13 (0-32) U/L ALT 12 11 (0-33) U/L Alkaline Phosphatase 138 H 145 H (35-105) U/L Albumin 3.6 3.5 (3.5-5.2) g/dL Urine 07/20/22 Range/Units 00:03 Urine Color Yellow (Yellow) Urine Appearance Sl hazy (CLEAR) Urine pH 5 (5-7) Ur Specific [place] 1.020 (1.005-1.030) Urine Protein Neg (Negative) Urine Glucose (UA) Norm (Normal) Urine Ketones Negative (Negative) Urine Nitrate Positive H (Negative) Urine Bilirubin Neg (Negative) Ur Leukocyte Esterase 1+ H (Negative) Urine RBC 0-4 H (0-2) /hpf Urine WBC 10-15 H (0-5) /hpf Coags 07/19/22 07/20/22 19:36 05:43 PT 13.80 13.70 INR 1.03 1.02 APTT 21.5 L Microbiology 07/20/22 00:03 Urine Culture - Preliminary Urine,Clean Catch Gram Negative Rods Cardiac Studies: Echocardiogram 04/07/22 Echocardiogram Ultrasound 03/30/21
--- NOTE | 2022-07-21 13:12 | PM.CONSULT ---
Providers/Reason For Consult Consulting Physician/Specialty*: Florinda Everett MD Reason for Consult*: Right intertrochanteric hip fracture Requesting Physician: Dr. Edgar Johnson Attending Physician: Gilbert Sheppard MD Primary Care Provider: Rios Anaya DO History of Present Illness History of Present Illness Sil Diaz is a 82 year old female who presented to the emergency department on July 19. She was on Plavix for multiple CVAs. Her past medical history is also significant for dyslipidemia, GERD, and hypertension. She was pulling weeds in her yard when she fell onto her right side and struck her right hip. She denied loss of consciousness or significant head trauma. She did not have any sort of seizure or strokelike symptoms, and states she merely lost her balance. She was admitted to the hospital with severe right hip pain and inability to ambulate. Given her Plavix, she could not undergo immediate surgical treatment. Review of Systems General: Reports: 10 or more systems reviewed and unremarkable except in HPI and below Card: Denies: chest pain Resp: Denies: dyspnea GI: Denies: abdominal pain Medications/Allergies Home Medications Medication Instructions Recorded Confirmed Last Taken Type clopidogrel 75 mg tablet (Plavix) 75 mg PO DAILY 02/07/20 07/19/22 07/18/22 History atorvastatin 40 mg tablet 40 mg PO DAILY 08/09/20 07/19/22 07/18/22 History citalopram 40 mg tablet 40 mg PO DAILY 08/09/20 07/19/22 07/18/22 History lisinopril 30 mg tablet 30 mg PO DAILY 08/09/20 07/19/22 07/18/22 History pantoprazole 40 mg tablet,delayed 40 mg PO DAILY 08/09/20 07/19/22 07/18/22 History release meloxicam 15 mg tablet 15 mg PO DAILY #30 tabs 07/04/22 07/19/22 07/18/22 Rx fluticasone propionate 115 2 puff inhalation BID 07/10/22 07/19/22 07/18/22 History mcg-salmeterol 21 mcg/actuation HFA inhaler (Advair HFA) acetaminophen 500 mg tablet 500 mg PO Q6H PRN Pain 07/19/22 07/19/22 Unknown History Allergies Allergy/AdvReac Type Severity Reaction Status Date / Time Sulfa (Sulfonamide Allergy RASH Verified 07/10/22 12:33 Antibiotics) Current Medications Generic Name Dose Route Start Last Admin Trade Name Shihka PRN Reason Stop Dose Admin Atorvastatin Calcium 40 mg 07/20/22 09:00 07/21/22 08:49 Atorvastatin 40 Mg Tablet PO 40 mg DAILY KENZIE Administration Citalopram Hydrobromide 40 mg 07/20/22 09:00 07/21/22 08:48 Citalopram 20 Mg Tablet PO 40 mg DAILY KENZIE Administration Docusate Sodium 100 mg 07/20/22 09:00 07/21/22 08:48 Docusate Sodium 100 Mg Capsule PO 100 mg BID KENZIE Administration Sodium Chloride 1,000 mls @ 75 mls/hr 07/19/22 22:32 07/21/22 00:56 Sodium Chloride 0.9% IV 75 mls/hr .[id number] KENZIE Administration Lisinopril 30 mg 07/20/22 09:00 07/21/22 08:48 Lisinopril 10 Mg Tablet PO 30 mg DAILY KENZIE Administration Pantoprazole Sodium 40 mg 07/20/22 09:00 07/21/22 08:[address] 40 Mg Tablet PO 40 mg DAILY KENZIE Administration PFSH Acute PFSH: Medical History Acute respiratory failure with hypoxia CAP (community acquired pneumonia) Cat bite CVA (cerebral vascular accident) Dyslipidemia GERD (gastroesophageal reflux disease) Heart murmur HTN (hypertension) Sepsis UTI (urinary tract infection) Surgical History H/O lumbar discectomy History of cholecystectomy Family History Other Family history non-contributory Social History Smoking and tobacco status: former smoker Alcohol intake: never Housing: House Vitals/I&O/Wt Last Vital Signs Temp 98.2 F 07/21/22 12:00 Pulse 64 07/21/22 12:00 Resp 16 07/21/22 12:00 BP 132/82 07/21/22 12:00 Pulse Ox 94 07/21/22 12:00 O2 Del Method 07/21/22 08:00 O2 Flow Rate 1 07/21/22 08:00 07/20/22 07/21/22 07/21/22 22:59 06:59 14:59 Intake Total 1366.25 / 2343.75 200 / 200 Output Total 750 / 750 975 / 1725 Balance -750 / 227.5 391.25 / 618.75 200 / 200 Weight last 48 hrs Weight 131 lb Physical Exam Const: COMMON NORMALS: no acute distress, average body habitus, patient oriented x3 and alert GENERAL APPEARANCE: cooperative and comfortable ORIENTATION/CONSCIOUSNESS: Yes awake HENMT: COMMON NORMALS: normocephalic and atraumatic HEAD & SCALP: normocephalic and atraumatic Eye: GENERAL EYE: appearance normal, both eyes and all related structures Chest: COMMONS NORMALS: normal inspection of the chest Resp: COMMON NORMALS: normal respiratory effort EFFORT & INSPECTION: Yes able to speak in complete sentences and Yes symmetric chest movement Extremity: RIGHT LOWER EXTREMITY: Yes hip joint Right hip: Yes inspection (No significant swelling or ecchymosis), Yes palpation (Very tender to palpation), Yes ROM (Not evaluated due to fracture) and Yes neurovascular exam (Intact distally) Neuro: COMMON NORMALS: patient oriented x3 SENSORIUM/ORIENTATION: Yes alert Psych: COMMON NORMALS: mental status grossly normal APPEARANCE: Yes grossly normal ATTITUDE: Yes calm and Yes engaged ATTENTION/CONCENTRATION: Yes attention grossly intact Skin: COMMON NORMALS: no rashes or lesions noted GENERAL SKIN EXAM: no rashes or lesions noted Urinary Catheter Management: Martinez: Cath Placed During This Visit: yes Reason for Continuing Indwelling Catheter: Required Immobilization for Trauma or Surgery or Anesthesia Urinary Catheter Date of Insertion: 07/19/22 Urinary Catheter Time of Insertion: 22:00 Data : 07/21/22 05:14 07/21/22 05:14 Micro: Microbiology 07/20/22 00:03 Urine Culture - Preliminary Urine,Clean Catch Gram Negative Rods Xray Ortho: My impression: X-rays were personally reviewed by me. X-ray series includes an AP pelvis as well as isolated AP and lateral of the patient's right hip. There is a minimal to nondisplaced right intertrochanteric hip fracture. This agrees with the radiologist reading. A&P Assessment and plan (1) Closed intertrochanteric fracture of right hip: Patient was admitted to the hospital on July 19 following a fall in her yard at home. She states that on the day of admission, she did not take her Plavix medication. Surgery was held secondary to Plavix. She is now greater than 48 hours since her last dose of Plavix. Plans are made for surgical intervention. Unfortunately, the patient did have lunch today prior to clarification of her Plavix dosing. The patient will still undergo surgical procedure tonight, but her procedure will be delayed until 8 hours following her lunch. Status: Acute Consult Attestations Medical Necessity Statement: Patient requires inpatient hospitalization for treatment of intertrochanteric hip fracture. Coding Level of Care Code Acute Engineering Mechanic for Marialu[facility] Freeman Diagnoses Closed intertrochanteric fracture of right hip S72.141A
[2022-07-21 13:48] LABS: Iron 41 ug/dL (37-145); Percent Saturation 19.8 % (20-50); Total Iron Binding Capacity 207 mcg/dl; Unsaturated Iron Binding 166 ug/dL (112-347)
[2022-07-21] MEDS: cefTRIAXone 1,000 MG in sodium chloride 0.9% (plus) 50 ML 100 MG IV (13:58)
--- NOTE | 2022-07-21 15:49 | P.PN_ITS ---
Subjective Subjective: Hospital course, labs appreciated. On examination patient lying comfortably in bed. States pain is well controlled. Denies any nausea vomiting, headache. Vitals/I&O/Wt Last Vital Signs Temp 98.2 F 07/21/22 12:00 Pulse 64 07/21/22 12:00 Resp 16 07/21/22 12:00 BP 132/82 07/21/22 12:00 Pulse Ox 94 07/21/22 12:00 O2 Del Method 07/21/22 08:00 O2 Flow Rate 1 07/21/22 08:00 07/21/22 07/21/22 07/21/22 06:59 14:59 22:59 Intake Total 1366.25 / 2343.75 200 / 200 1050 / 1250 Output Total 975 / 1725 1600 / 1600 Balance 391.25 / 618.75 200 / 200 -550 / -350 Weight last 48 hrs Weight 59.421 kg Physical Exam Narrative: No acute distress. Heart regular normal S1-S2 Lungs clear to auscultation Abdomen soft nontender nondistended positive bowel sounds Extremities no clubbing cyanosis or edema Urinary Catheter Management: Martinez: Cath Placed During This Visit: yes Reason for Continuing Indwelling Catheter: Required Immobilization for Trauma or Surgery or Anesthesia Urinary Catheter Date of Insertion: 07/19/22 Urinary Catheter Time of Insertion: 22:00 Data : 07/21/22 05:14 07/21/22 05:14 Micro: Microbiology 07/20/22 00:03 Urine Culture - Preliminary Urine,Clean Catch Gram Negative Rods A&P Assessment and plan (1) Closed fracture of right hip: Orthopedics consulted from the ER. Pain control, physical therapy, anticoagulation as per orthopedic team. Plan for ORIF later in the day today. Status: Acute (2) HTN (hypertension): Goal blood pressure less than 140/90 mmHg. Continued home dose of lisinopril. Status: Acute (3) Dyslipidemia: Appreciate lipid panel. Status: Acute (4) CVA (cerebral vascular accident): Status: Acute Plan Analgesia: Morphine 1 mg every 4 hours as needed, Tylenol as needed Glycemic control: Not needed Nutrition: N.p.o. for possible ORIF today, regular diet post OR. CODE STATUS: Full code PUD prophylaxis: Protonix DVT prophylaxis: SCDs Discharge planning: SNF placement post-ORIF in view of closed hip fracture Continue with care at [facility] floor. This documentation was created by [employer] multi media specialist software. Every effort was made to ensure accuracy of multi media specialist. Any obvious errors or omissions should be clarified with the author of the document. Attestations Medical Necessity Statement*: Requires further hospitalization for closed fracture of right hip requiring ORIF. Time Spent in Patient Care: Greater than 35 minutes Coding Level of Care Code Acute Body Straightener for [facility] Fwd Diagnoses Closed fracture of right hip S72.001A HTN (hypertension) I10 Dyslipidemia E78.5 CVA (cerebral vascular accident) I63.9
[2022-07-21] MEDS: acetaminophen 1,000 MG/100 ML PIGGYBACK 400 MG IV (19:05)
[2022-07-21] MEDS: sodium chloride 0.9% 1,000 ML 30 ML IV (19:10)
--- NOTE | 2022-07-21 19:15 | PC.NURSE ---
Patient has refused position changes during day shift today.
--- NOTE | 2022-07-21 19:41 | PM.MISC ---
Miscellaneous Note Purpose of Documentation: Cancellation of surgery Note: Surgery was canceled secondary to instrument contamination. It will be rescheduled for tomorrow.
--- NOTE | 2022-07-21 19:44 | ANE.PACU2 ---
Inpatient post-anesthesia follow up: Vital signs: Temperature 98.6 F Pulse Rate 74 Respiratory Rate 17 Blood Pressure 159/74 Pulse Oximetry 92 Oxygen Delivery Me thod Nasal Cannula Oxygen Flow Rate 2 Fraction of Inspir ed Oxygen Additional Comments: Unfortunately equipment needed and planned for this case was found to be (when opened) improperly sterilized. Case cancelled as equipment will not be available until machine hose cutter. Plan reschedule case for tomorrow.
--- NOTE | 2022-07-21 19:49 | SUR.PREOP ---
walked outside multiple times, called number for family 3 times -voicemail box is not set up yet.
[2022-07-22] VITALS (18 sets, daily range): BP systolic 88–165; BP diastolic 52–80; PULSE 59–91; RESP 14–20; TEMP 36.1–36.8; O2SAT 90–100
--- NOTE | 2022-07-22 | XR_ITS ---
WS: [id number] Right hip, C-arm fluoroscopy, 07/22/2022 Clinical Data: orif right intertrochanteric hip fracture Comparison: Pelvis and right hip, 07/19/2022. Findings: The intertrochanteric right hip fracture has been repaired compared with a right hip nail and proxima l intertrochanteric akua. XR/XR hip RT 2-3V wo/w pel* [id number] Impression: Internal fixation of intertrochanteric right hip fracture.
--- NOTE | 2022-07-22 | SCC_ITS ---
Procedure done: Open reduction internal fixation right intertrochanteric hip fracture 102.8 seconds of fluoroscopic guidance, for a cumulative dose of 11.05 mGy, was provided to Dr. Everett by the radiology department. C-arm images of the RIGHT hip were saved for the patient's permanent record. [facility] MEDICAL CENTERFabrizio
[2022-07-22 03:21] LABS: Basophils # 0.1 10^3/uL (0.0-0.1); Basophils % 0.7 %; Eosinophils # 0.4 10^3/uL (0.0-0.8); Eosinophils % 4.2 %; Hematocrit 36.8 % (37.0-47.0); Hemoglobin 11.3 g/dL (11.5-15.3); Lymphocytes # 3.8 10^3/uL (0.8-4.8); Lymphocytes % 42.4 %; Mean Corpuscular HGB Conc 30.7 g/dL (30.0-36.0); Mean Corpuscular Hemoglobin 27.6 pg (28.0-34.0); Mean Corpuscular Volume 89.8 fl (81-99); Mean Platelet Volume 9.9 fL (7.4-10.4); Monocytes # 0.6 10^3/uL (0.2-0.9); Monocytes % 6.3 %; Neutrophils # 4.18 10^3/uL (1.8-7.7); Neutrophils % 46.1 %; Nucleated Red Blood Cells % 0 %; Platelet Count 224 10^3/cmm (130-400); Red Cell Distribution Width 15.2 % (12.1-15.1); White Blood Count 9.1 10^3/uL (4.0-10.0)
[2022-07-22 03:48] LABS: Alanine Aminotransferase 9 U/L (0-33); Albumin Level 3.3 g/dL (3.5-5.2); Alkaline Phosphatase 142 U/L (35-105); Anion Gap 10.7 (5-19); Aspartate Amino Transferase 12 U/L (0-32); Blood Urea Nitrogen 9 mg/dL (8-23); Calcium 8.5 mg/dL (8.5-10.5); Carbon Dioxide 27 mmol/L (22-29); Chloride 107 mmol/L (98-107); Globulin 2.6 g/dL (1.3-4.6); Glucose 89 mg/dL (65-115); Osmolality Calculated 290 mOsm/kg (285-295); Potassium 3.7 mmol/L (3.5-5.1); Sodium 141 mmol/L (136-145); Total Bilirubin 0.4 mg/dL (0.15-1.2); Total Protein 5.9 g/dL (6.6-8.7)
--- NOTE | 2022-07-22 08:34 | P.ANESUD_ITS ---
Pre-Anesthetic Update Pre-Anesthetic Assessment: Date of Surgery/Procedure: 07/22/22 Preop Opal gnosis: Right intertrochanteric hip fracture Proposed Procedure: Operation Date: 07/21/22 18:30 Proposed Procedures p Trochanteric Femoral Nail(Right) - Florinda Everett MD Operation Date: 07/22/22 10:05 Proposed Procedures p Trochanteric Femoral Nail(Right) - Florinda Everett MD Any changes to Pre-Anesthetic Assessment?: No Changes from Pre-Anesthetic Assessment: Patient evaluated and prepared for surgery yesterday, however case cancelled. Plan to proceed today. Last Intake: Intake Last Liquid Date 07/21/22 Last Liquid Time 23:15 Last Solid Date 07/21/22 Last Solid Time 22:10 Labs Last 48hrs: Short CBC 07/21/22 07/22/22 Range/Units 05:14 02:55 WBC 9.8 9.1 (4.0-10.0) 10^3/ uL Hgb 11.0 L 11.3 L (11.5-15.3) g/dL Hct 38.2 36.8 L (37.0-47.0) % MCV 94.3 89.8 (81-99) fl Plt Count 192 224 (130-400) 10^3/c mm Neut % (Auto) 51.2 46.1 % Neut # (Auto) 5.02 4.18 (1.8-7.7) 10^3/u L BMP 07/20/22 07/21/22 07/22/22 05:43 05:14 02:55 Sodium 145 140 141 Potassium 5.1 4.3 3.7 Chloride 111 H 108 H 107 Carbon Dioxide 26 24 27 BUN 19 11 9 Creatinine 0.7 0.6 0.7 Glucose 67 75 89 Calcium 8.5 8.3 L 8.5 Cardiac Enzymes 07/20/22 Range/Units 05:43 NT-Pro-B Natriuret Pep 388 (0-450) pg/mL Liver Function 07/20/22 07/22/22 Range/Units 05:43 02:55 Total Bilirubin 0.4 0.4 (0.15-1.2) mg/dL AST 13 12 (0-32) U/L ALT 11 9 (0-33) U/L Alkaline Phosphata se 145 H 142 H (35-105) U/L Albumin 3.5 3.3 L (3.5-5.2) g/dL Blood Bank 07/21/22 13:02 Blood Type A Positive Rho(D) Type Positive Antibody Screen Negative Coags 07/20/22 05:43 PT 13.70 INR 1.02 Vitals: Temperature 97.9 F 07/22/22 08:04 Temperature Source Oral 07/22/22 08:04 Pulse Rate 63 07/22/22 08:04 Pulse Rhythm 07/20/22 07:52 Pulse Strength 2+ Slightly Dimin ished 07/20/22 07:52 Respiratory Rate 20 H 07/22/22 08:04 Respiratory Effort 07/20/22 20:18 Respiratory Depth Normal 07/20/22 20:18 Respiratory Patter n 07/20/22 07:52 Blood Pressure 153/80 07/22/22 08:04 Blood Pressure Fartun n 104 07/22/22 08:04 Blood Pressure Pos ition Semi Fowlers 07/21/22 12:00 Pulse Oximetry 96 07/22/22 08:04 Oxygen Delivery Me thod 07/21/22 19:44 Oxygen Flow Rate 2 07/21/22 19:44 Exam: Pre-Anes Outpt Exam: alert, oriented x 3, clear to auscultation bilaterally and regular rate & rhythm Cardiac Studies: Echocardiogram 04/07/22 Echocardiogram Ultrasound 03/30/21
[2022-07-22] MEDS: acetaminophen 1,000 MG/100 ML PIGGYBACK 400 MG IV (09:02)
[2022-07-22] MEDS: sodium chloride 0.9% 1,000 ML 30 ML IV (09:08)
[2022-07-22] MEDS: ceFAZolin 2,000 MG in sodium chloride 0.9% (plus) 50 ML 100 MG IV ×2 (10:50→18:28)
[2022-07-22] MEDS: ceFAZolin 1,000 mg SDV 1000 MG IRRIGATION (11:18)
--- NOTE | 2022-07-22 11:51 | PC.CHAP ---
Pastoral Care Encounter/Spiritual Assessment Type of Contact [] Declined rotary engine assembler visit [] Patient/Family/Request visit [] Outpatient visit [] Follow-up visit [] Physician referral [] Code/Alert [x] Routine visit [] Staff referral [] Actively dying [] Patient sleeping [] Family support [] [x] Out of room [] Palliative care [] [] Receiving care in room [] Pre-surgical visit [] Trauma [] Long length of stay [] ICU visit [] Other: Relational/Emotional Strength [] Patient feels connected with others/family/visitors/staff [] Distress [] Loneliness/isolation [] Abandonment Spirituality of Patient [] Person of Maria M [] Attends Confucianist of their Maria M [] Believes in Prayer [] Reads Bible or Sikhism materials [] There are Spiritual issues to be addressed Cyber Threat Analyst Interventions [] Prayer [] Active listening [] Non-anxious presence [] Spiritual/emotional support [] Crisis/trauma care [] Spiritual counseling [] Bereavement support [] Provided bereavement packet [] Provided Bible/devotional materials [] Provided toy/stuffed animal, coloring book to patient or family member [] Provided Communion [] Anointing/Moody [] Salvation [] Completed spiritual assessment [] Other: Impact on Illness or Injury [] Angry [] Fearful [] Anxious [] Often cries [] Exhaustion [] Unable to work [] Unable to attend taoist [] Unable to walk/stand [] Unable to read [] Unable to drive [] Unable to eat/drink [] Unable to sleep [] Unable to be with family [] Patient intubated [] Other: Summary Time spent with patient
--- NOTE | 2022-07-22 12:08 | PM.OP ---
Operative Report Date of procedure: July 22, 2022 Pre-op diagnosis: Right intertrochanteric hip fracture Post-op diagnosis: Right intertrochanteric hip fracture Procedure done: Open reduction internal fixation right intertrochanteric hip fracture Implants: The [employer] gamma 3 nail system with a size 11 mm x 180 mm x 125 degree gamma 3 trochanteric nail, a size 10.5 mm x 85 mm lag screw, and a distal locking screw size 5 mm x 32.5 mm Pathology: none sent Surgeon: Florinda Everett Pre Wave Assembler: None Anesthesia: General (LMA, ASA 3) Estimated blood loss (mL): 20 IV fluids (mL): 500 Urine output (mL): 200 Urine output: Additional 800 emptied at the beginning of the case from preoperative Complications: None Findings: Minimally displaced right intertrochanteric hip fracture Condition: stable Disposition: PACU (Then to floor for postoperative rehabilitation and medical monitoring) Brief History: Sil Diaz is a 82 year old female who presented to the emergency department on July 19.? She was on Plavix for multiple CVAs.? Her past medical history is also significant for dyslipidemia, GERD, and hypertension.? She was pulling weeds in her yard when she fell onto her right side and struck her right hip.? She denied loss of consciousness or significant head trauma.? She did not have any sort of seizure or strokelike symptoms, and states she merely lost her balance.? She was admitted to the hospital with severe right hip pain and inability to ambulate.? Given her Plavix, she could not undergo immediate surgical treatment. She was scheduled for surgical intervention last evening, but this had to be canceled secondary to instrument issues. Procedure: Patient is brought to the operating theater. After undergoing adequate general LMA anesthesia, ASA 3, the patient was transferred to the fracture table, positioned on the table and fluoroscopic guidance obtained throughout the surgical procedure. Prior to the commencement of the surgical procedure, a surgical pause was performed. At the time of the surgical pause, we confirmed the site and side of surgery as well as preoperative surgical markings and appropriate and timely administration of IV antibiotics, Ancef 1g. Availability of equipment was also confirmed. Fluoroscopy was used to confirm the fracture was in appropriate position in both AP and lateral planes. An incision was then made slightly above the greater trochanter to allow access to the greater trochanter. An awl was used to enter the greater trochanter, and a guidewire was subsequently placed. The guidewire was confirmed to be in appropriate position in AP and lateral planes.? Guidewire was then removed. An 11 mm nail was placed into appropriate position with positioning being confirmed in AP and lateral planes on the x-ray. It passed without difficulty. Guidewire was then passed through the jigging system into the femoral head. We wanted to be center or slightly inferior and posterior to center. Guidewire was placed into appropriate position. Once the guidewire was in appropriate position, this position was confirmed by x-ray.? This was then measured and we chose a 10.5 mm x 95 mm lag screw.? We reamed to allow for the lag screw to be placed.? The 85 mm lag screw was then passed into the femoral head through the trochanteric nail. This was passed uneventfully and again position was confirmed in AP and lateral planes. Compression was obtained under fluoroscopic guidance.? The set screw was then placed in position, tightened completely, and subsequently backed off one-eighth turn. The construct was left in position and attention was directed distally. Cannulas were again used to determine appropriate placement for the distal screw. This was placed in position without difficulty. It was measured off of the drill. The appropriate length screw was then obtained and placed in position without difficulty. Once the screw was in position, we confirmed appropriate placement of the components, and we removed the jigging system. Attention was then directed to closure. The hip was copiously irrigated with normal saline with antibiotics. Following this it was dried and closed. Tensor fascia naida was closed proximally with 0 Vicryl in an interrupted fashion. Subcutaneous tissues were closed with 2-0 Monocryl, and the skin was closed with a continuous 3-0 Monocryl subcuticular stitch. This was then covered with Dermabond, steri-strips, and OpSite. The patient was removed from the fracture table and returned to recovery in satisfactory condition. The patient will be discharged to the floor for postoperative rehabilitation and pain management. There were no specimens obtained. Related Problem List Diagnoses (1) Closed intertrochanteric fracture of right hip:
[2022-07-22] MEDS: docusate sodium 100 mg Capsule PO ×2 (13:13→18:27)
[2022-07-22] MEDS: lisinopril 10 mg Tablet 30 MG PO (13:14)
[2022-07-22] MEDS: pantoprazole DR 40 mg Tablet PO (13:14)
[2022-07-22] MEDS: citalopram 20 mg Tablet 40 MG PO (13:14)
[2022-07-22] MEDS: atorvastatin 40 mg Tablet PO (13:14)
[2022-07-22] MEDS: cefTRIAXone 1,000 MG in sodium chloride 0.9% (plus) 50 ML 100 MG IV (13:15)
--- NOTE | 2022-07-22 13:16 | ANE.PACU2 ---
Inpatient post-anesthesia follow up: Airway intact: Yes Vital signs: Temperature 97.2 F Pulse Rate 69 Respiratory Rate 18 Blood Pressure 131/62 Pulse Oximetry 97 Oxygen Delivery Me thod Simple Mask Oxygen Flow Rate 2 Fraction of Inspir ed Oxygen Hydration adequate: Yes Nausea and vomiting: No Pain level: 1 Mental status: Baseline
--- NOTE | 2022-07-22 15:53 | P.PN_ITS ---
Subjective Subjective: No acute events overnight. Underwent ORIF today. Tolerated well. Denies any nausea, vomiting, headache. Back to floor postoperatively. Vitals/I&O/Wt Last Vital Signs Temp 97.5 F L 07/22/22 12:53 Pulse 91 07/22/22 12:53 Resp 16 07/22/22 12:53 BP 116/69 07/22/22 12:53 Pulse Ox 92 07/22/22 12:53 O2 Del Method 07/22/22 12:53 O2 Flow Rate 2 07/22/22 12:42 07/22/22 07/22/22 07/22/22 06:59 14:59 22:59 Intake Total 1200 / 1200 Output Total 1000 / 3325 420 / 420 Balance -1000 / -1735 780 / 780 Physical Exam Narrative: No acute distress. Heart regular normal S1-S2 Lungs clear to auscultation Abdomen soft nontender nondistended positive bowel sounds Extremities no clubbing cyanosis or edema Urinary Catheter Management: Martinez: Cath Placed During This Visit: yes Reason for Continuing Indwelling Catheter: Required Immobilization for Trauma or Surgery or Anesthesia Urinary Catheter Date of Insertion: 07/19/22 Urinary Catheter Time of Insertion: 22:00 Data : 07/22/22 02:55 07/22/22 02:55 A&P Assessment and plan (1) Closed fracture of right hip: Postoperative day 0. Orthopedics consulted from the ER. Pain control, physical therapy, anticoagulation as per orthopedic team. Monitor hemoglobin. Status: Acute (2) HTN (hypertension): Goal blood pressure less than 140/90 mmHg. Continued home dose of lisinopril. Status: Acute (3) Dyslipidemia: Appreciate lipid panel. Status: Acute (4) CVA (cerebral vascular accident): Status: Acute Plan Analgesia: Morphine 1 mg every 4 hours as needed, Tylenol as needed Glycemic control: Not needed Nutrition: N.p.o. for possible ORIF today, regular diet post OR. CODE STATUS: Full code PUD prophylaxis: Protonix DVT prophylaxis: SCDs, aspirin 325 mg oral daily Discharge planning: SNF placement post-ORIF in view of closed hip fracture Continue with care at [facility] floor. This documentation was created by [employer] maintenance and utilities supervisor software. Every effort was made to ensure accuracy of maintenance and utilities supervisor. Any obvious errors or omissions should be clarified with the author of the document. Attestations Medical Necessity Statement*: Requires further hospitalization for postoperative care for ORIF while safe discharge planning is sought. Coding Level of Care Code Acute Stripper Printed Circuit Boards for Chg Fwd Diagnoses Closed fracture of right hip S72.001A HTN (hypertension) I10 Dyslipidemia E78.5 CVA (cerebral vascular accident) I63.9
[2022-07-22] MEDS: sodium chloride 0.9% 1,000 ML 75 ML IV (18:26)
[2022-07-23] VITALS (7 sets, daily range): BP systolic 85–130; BP diastolic 54–80; PULSE 70–83; RESP 16–18; TEMP 36.6–37; O2SAT 91–96
[2022-07-23] MEDS: ceFAZolin 2,000 MG in sodium chloride 0.9% (plus) 50 ML 100 MG IV ×2 (02:51→10:15)
[2022-07-23 04:33] LABS: Basophils # 0.1 10^3/uL (0.0-0.1); Basophils % 0.6 %; Eosinophils # 0.3 10^3/uL (0.0-0.8); Eosinophils % 2.5 %; Hematocrit 35.6 % (37.0-47.0); Lymphocytes # 3.3 10^3/uL (0.8-4.8); Lymphocytes % 33.5 %; Mean Corpuscular HGB Conc 28.1 g/dL (30.0-36.0); Mean Corpuscular Hemoglobin 27.2 pg (28.0-34.0); Monocytes # 0.7 10^3/uL (0.2-0.9); Monocytes % 6.9 %; Neutrophils # 5.53 10^3/uL (1.8-7.7); Neutrophils % 56.1 %; Nucleated Red Blood Cells % 0 %; Platelet Count 205 10^3/cmm (130-400); Red Blood Count 3.67 10^6/uL (4.1-5.3); White Blood Count 9.9 10^3/uL (4.0-10.0)
[2022-07-23 05:14] LABS: Blood Urea Nitrogen 12 mg/dL (8-23); Calcium 7.4 mg/dL (8.5-10.5); Carbon Dioxide 21 mmol/L (22-29); Chloride 107 mmol/L (98-107); Glucose 115 mg/dL (65-115); Osmolality Calculated 289 mOsm/kg (285-295); Sodium 139 mmol/L (136-145)
[2022-07-23 05:33] LABS: Anion Gap 14.7 (5-19); Potassium 3.7 mmol/L (3.5-5.1)
[2022-07-23] MEDS: aspirin 325 mg EC Tablet PO (08:30)
[2022-07-23] MEDS: pantoprazole DR 40 mg Tablet PO (08:31)
[2022-07-23] MEDS: citalopram 20 mg Tablet 40 MG PO (08:31)
[2022-07-23] MEDS: lisinopril 10 mg Tablet 30 MG PO (08:31)
[2022-07-23] MEDS: atorvastatin 40 mg Tablet PO (08:31)
[2022-07-23] MEDS: docusate sodium 100 mg Capsule PO ×2 (08:31→17:06)
[2022-07-23] MEDS: oxyCODONE 5 mg IR Tab/Cap PO (09:00)
[2022-07-23] MEDS: sodium chloride 0.9% 1,000 ML 75 ML IV (10:20)
[2022-07-23] MEDS: cefTRIAXone 1,000 MG in sodium chloride 0.9% (plus) 50 ML 100 MG IV (12:25)
--- NOTE | 2022-07-23 13:34 | PM.PN ---
Subjective Subjective: Patient is seen in her room. She appears comfortable. She is ready for discharge to group home. She has no significant complaints. Medications: Reviewed: Yes Vitals/I&O/Wt Last Vital Signs Temp 98.3 F 07/23/22 12:51 Pulse 83 07/23/22 12:51 Resp 17 07/23/22 12:51 BP 130/72 07/23/22 12:51 Pulse Ox 92 07/23/22 12:51 O2 Del Method 07/23/22 12:51 O2 Flow Rate 2 07/22/22 12:42 07/22/22 07/23/22 07/23/22 22:59 06:59 14:59 Intake Total 1544.5 / 2744.5 50 / 2794.5 1340 / 1340 Output Total 200 / 620 450 / 1070 Balance 1344.5 / 2124.5 -400 / 1724.5 1340 / 1340 Physical Exam Const: COMMON NORMALS: no acute distress, average body habitus, patient oriented x3 and alert GENERAL APPEARANCE: cooperative and comfortable ORIENTATION/CONSCIOUSNESS: Yes awake HENMT: COMMON NORMALS: normocephalic and atraumatic HEAD & SCALP: normocephalic and atraumatic Eye: GENERAL EYE: appearance normal, both eyes and all related structures Chest: COMMONS NORMALS: normal inspection of the chest Resp: COMMON NORMALS: normal respiratory effort EFFORT & INSPECTION: Yes able to speak in complete sentences and Yes symmetric chest movement Extremity: RIGHT LOWER EXTREMITY: Yes hip joint (Insert dry and intact) Right hip: Yes inspection (Swelling or ecchymosis), Yes palpation (Nontender.), Yes ROM (Not evaluated.) and Yes neurovascular exam (Intact distally with no evidence of DVT.) Neuro: COMMON NORMALS: patient oriented x3 SENSORIUM/ORIENTATION: Yes alert Psych: COMMON NORMALS: mental status grossly normal APPEARANCE: Yes grossly normal ATTITUDE: Yes calm and Yes engaged ATTENTION/CONCENTRATION: Yes attention grossly intact Skin: COMMON NORMALS: no rashes or lesions noted GENERAL SKIN EXAM: no rashes or lesions noted Urinary Catheter Management: Martinez: Cath Placed During This Visit: yes, but has since been removed by the nurse Reason for Continuing Indwelling Catheter: Decision to DC Catheter Urinary Catheter Date of Insertion: 07/19/22 Urinary Catheter Time of Insertion: 22:00 Date Urinary Catheter Removed: 07/23/22 Time Urinary Catheter Discontinued: 06:15 Data : 07/23/22 04:13 07/23/22 04:13 Micro: Microbiology 07/20/22 00:03 Urine Culture - Final Urine,Clean Catch Escherichia coli A&P Assessment and plan (1) Closed intertrochanteric fracture of right hip: Patient was admitted to the hospital on July 19 following a fall in her yard at home. She states that on the day of admission, she did not take her Plavix medication. Surgery was held secondary to Plavix. Surgery was then planned for July 21, but secondary to equipment issues, it was delayed until the . She is doing well following open reduction internal fixation of her intertrochanteric hip fracture. She has no evidence of DVT. She is awaiting placement and transfer to [facility]. Status: Acute Qualifiers: Encounter type: initial encounter Fracture alignment: nondisplaced Qualified Code(s): S72.144A - Nondisplaced intertrochanteric fracture of right femur, initial encounter for closed fracture Attestations Medical Necessity Statement*: Inpatient required secondary to intertrochanteric hip fracture. Coding Level of Care Code Acute Chain Maker Hand for [facility] Fwjose manuel Diagnoses Closed intertrochanteric fracture of right hip S72.144A Encounter type: initial encounter Fracture alignment: nondisplaced
--- NOTE | 2022-07-23 13:35 | PM.PN ---
Subjective Subjective: No acute events overnight. Underwent ORIF yesterday. Has remained hemodynamically stable and afebrile. Worked with physical therapy Medications: Reviewed: Yes Vitals/I&O/Wt Last Vital Signs Temp 98.3 F 07/23/22 12:51 Pulse 83 07/23/22 12:51 Resp 17 07/23/22 12:51 BP 130/72 07/23/22 12:51 Pulse Ox 92 07/23/22 12:51 O2 Del Method 07/23/22 12:51 O2 Flow Rate 2 07/22/22 12:42 07/22/22 07/23/22 07/23/22 22:59 06:59 14:59 Intake Total 1544.5 / 2744.5 50 / 2794.5 1340 / 1340 Output Total 200 / 620 450 / 1070 Balance 1344.5 / 2124.5 -400 / 1724.5 1340 / 1340 Physical Exam Narrative: No acute distress. Heart regular normal S1-S2 Lungs clear to auscultation Abdomen soft nontender nondistended positive bowel sounds Extremities no clubbing cyanosis or edema, postsurgical dressing clean Urinary Catheter Management: Martinez: Cath Placed During This Visit: yes, but has since been removed by the nurse Reason for Continuing Indwelling Catheter: Decision to DC Catheter Urinary Catheter Date of Insertion: 07/19/22 Urinary Catheter Time of Insertion: 22:00 Date Urinary Catheter Removed: 07/23/22 Time Urinary Catheter Discontinued: 06:15 Data : 07/23/22 04:13 07/23/22 04:13 Micro: Microbiology 07/20/22 00:03 Urine Culture - Final Urine,Clean Catch Escherichia coli A&P Assessment and plan (1) Closed fracture of right hip: Postoperative day 1. Orthopedics consulted from the ER. Pain control, physical therapy, anticoagulation as per orthopedic team. Monitor hemoglobin. Status: Acute (2) HTN (hypertension): Goal blood pressure less than 140/90 mmHg. Continued home dose of lisinopril. Status: Acute (3) Dyslipidemia: Appreciate lipid panel. Status: Acute (4) CVA (cerebral vascular accident): Status: Acute Plan UTI: Unable to gather the symptomatology as patient has dementia. Urine culture growing E. coli. Likely a commensal but given postop status will finish the course of 5 days. Sensitive to levofloxacin and ceftriaxone. Continue ceftriaxone for now. We will switch to Levaquin on discharge to finish the course if needed. Analgesia: Morphine 1 mg every 4 hours as needed, Tylenol as needed Glycemic control: Not needed Nutrition: N.p.o. for possible ORIF today, regular diet post OR. CODE STATUS: Full code PUD prophylaxis: Protonix DVT prophylaxis: SCDs, aspirin 325 mg oral daily Discharge planning: SNF placement post-ORIF in view of closed hip fracture Continue with care at [facility]. This documentation was created by [employer] associate justice software. Every effort was made to ensure accuracy of associate justice. Any obvious errors or omissions should be clarified with the author of the document. Attestations Medical Necessity Statement*: Requires further hospitalization for postoperative care, post-ORIF Time Spent in Patient Care: 16 - 35 minutes Coding Level of Care Code Acute Liberal Arts And Humanities Chair for Mertg Fwd Diagnoses Closed fracture of right hip S72.001A HTN (hypertension) I10 Dyslipidemia E78.5 CVA (cerebral vascular accident) I63.9
[2022-07-23] MEDS: ferrous gluconate 324 mg Tablet PO (17:06)
[2022-07-24] VITALS (9 sets, daily range): BP systolic 109–137; BP diastolic 68–85; PULSE 66–80; RESP 16–18; TEMP 36.4–37.4; O2SAT 92–97
--- NOTE | 2022-07-24 09:20 | PC.SOCIAL ---
IMM update IMM updated with patient. Verbalized an understanding. Copy Pg 2 provided. Initialled, dated, timed, and placed in chart.
[2022-07-24] MEDS: ferrous gluconate 324 mg Tablet PO ×2 (09:27→18:20)
[2022-07-24] MEDS: citalopram 20 mg Tablet 40 MG PO (09:28)
[2022-07-24] MEDS: lisinopril 10 mg Tablet 30 MG PO (09:28)
[2022-07-24] MEDS: aspirin 325 mg EC Tablet PO (09:28)
[2022-07-24] MEDS: pantoprazole DR 40 mg Tablet PO (09:28)
[2022-07-24] MEDS: docusate sodium 100 mg Capsule PO ×2 (09:28→18:20)
[2022-07-24] MEDS: acetaminophen 325 mg Tablet 650 MG PO (09:43)
--- NOTE | 2022-07-24 11:38 | PM.PN ---
Subjective Subjective: Patient is seen in her room today. She was up to the bedside commode. She is happy that she was walking . She is awaiting insurance approval for transfer to assisted at [facility]. She will require this to maximize her independence and possibly be able to return home. Medications: Reviewed: Yes Vitals/I&O/Wt Last Vital Signs Temp 99.4 F 07/24/22 08:00 Pulse 75 07/24/22 08:00 Resp 17 07/24/22 08:00 BP 133/82 07/24/22 08:00 Pulse Ox 92 07/24/22 08:00 O2 Del Method 07/24/22 08:00 O2 Flow Rate 2 07/23/22 19:59 07/23/22 07/24/22 07/24/22 22:59 06:59 14:59 Intake Total 1480 / 2820 Output Total 160 / 160 260 / 420 Balance 1320 / 2660 -260 / 2400 Physical Exam Const: COMMON NORMALS: no acute distress, average body habitus, patient oriented x3 and alert GENERAL APPEARANCE: cooperative and comfortable ORIENTATION/CONSCIOUSNESS: Yes awake HENMT: COMMON NORMALS: normocephalic and atraumatic HEAD & SCALP: normocephalic and atraumatic Eye: GENERAL EYE: appearance normal, both eyes and all related structures Chest: COMMONS NORMALS: normal inspection of the chest Resp: COMMON NORMALS: normal respiratory effort EFFORT & INSPECTION: Yes able to speak in complete sentences and Yes symmetric chest movement Extremity: RIGHT LOWER EXTREMITY: Yes hip joint (Dressing is dry and intact. There is no swelling.) Right hip: Yes inspection (No significant ecchymosis.), Yes palpation (Nontender.), Yes ROM (Not evaluated.) and Yes neurovascular exam (Intact with no evidence of DVT.) Neuro: COMMON NORMALS: patient oriented x3 SENSORIUM/ORIENTATION: Yes alert Psych: COMMON NORMALS: mental status grossly normal APPEARANCE: Yes grossly normal ATTITUDE: Yes calm and Yes engaged ATTENTION/CONCENTRATION: Yes attention grossly intact Skin: COMMON NORMALS: no rashes or lesions noted GENERAL SKIN EXAM: no rashes or lesions noted Urinary Catheter Management: Martniez: Cath Placed During This Visit: yes, but has since been removed by the nurse Reason for Continuing Indwelling Catheter: Decision to DC Catheter Urinary Catheter Date of Insertion: 07/19/22 Urinary Catheter Time of Insertion: 22:00 Date Urinary Catheter Removed: 07/23/22 Time Urinary Catheter Discontinued: 06:15 Data : 07/23/22 04:13 07/23/22 04:13 A&P Assessment and plan (1) Closed intertrochanteric fracture of right hip: Patient was admitted to the hospital on July 19 following a fall in her yard at home. She states that on the day of admission, she did not take her Plavix medication. Surgery was held secondary to Plavix. Surgery was then planned for July 21, but secondary to equipment issues, it was delayed until the . She is doing well following open reduction internal fixation of her intertrochanteric hip fracture. She has no evidence of DVT. She is awaiting placement and transfer to [facility]. The patient is advised that I will see her as an outpatient. I will be leaving town this evening, and she is in agreement with this as well. Status: Acute Qualifiers: Encounter type: initial encounter Fracture alignment: nondisplaced Qualified Code(s): S72.144A - Nondisplaced intertrochanteric fracture of right femur, initial encounter for closed fracture Attestations Medical Necessity Statement*: Ongoing care following closed intertrochanteric hip fracture. Coding Level of Care Code Acute Equal Opportunity Specialist for [facility] Diagnoses Closed intertrochanteric fracture of right hip S72.144A Encounter type: initial encounter Fracture alignment: nondisplaced
--- NOTE | 2022-07-24 13:16 | PM.PN ---
Subjective Subjective: No acute events overnight. Has remained hemodynamically stable and afebrile. Working with physical therapy. Medications: Reviewed: Yes Vitals/I&O/Wt Last Vital Signs Temp 98.0 F 07/24/22 12:00 Pulse 71 07/24/22 12:00 Resp 17 07/24/22 12:00 BP 116/72 07/24/22 12:00 Pulse Ox 97 07/24/22 12:00 O2 Del Method 07/24/22 12:00 O2 Flow Rate 2 07/23/22 19:59 07/23/22 07/24/22 07/24/22 22:59 06:59 14:59 Intake Total 1480 / 2820 Output Total 160 / 160 260 / 420 Balance 1320 / 2660 -260 / 2400 Physical Exam Narrative: No acute distress. Heart regular normal S1-S2 Lungs clear to auscultation Abdomen soft nontender nondistended positive bowel sounds Extremities no clubbing cyanosis or edema, postsurgical dressing clean Urinary Catheter Management: Martinez: Cath Placed During This Visit: yes, but has since been removed by the nurse Reason for Continuing Indwelling Catheter: Decision to DC Catheter Urinary Catheter Date of Insertion: 07/19/22 Urinary Catheter Time of Insertion: 22:00 Date Urinary Catheter Removed: 07/23/22 Time Urinary Catheter Discontinued: 06:15 Data : 07/23/22 04:13 07/23/22 04:13 A&P Assessment and plan (1) Closed fracture of right hip: Postoperative day 2. Orthopedics consulted from the ER. Pain control with oxycodone. Change frequency to every 6 hours. Aspirin 325 mg oral daily as per orthopedic team for anticoagulation Monitor hemoglobin. Status: Acute (2) HTN (hypertension): Goal blood pressure less than 140/90 mmHg. Continued home dose of lisinopril. Status: Acute (3) Dyslipidemia: Appreciate lipid panel. Status: Acute (4) CVA (cerebral vascular accident): Status: Acute Plan UTI: Unable to gather the symptomatology as patient has dementia. Urine culture growing E. coli. Likely a commensal but given postop status will finish the course of 5 days. Sensitive to levofloxacin and ceftriaxone. Continue ceftriaxone for now. We will switch to Levaquin on discharge to finish the course if needed. Analgesia: Morphine 1 mg every 4 hours as needed, Tylenol as needed Glycemic control: Not needed Nutrition: Regular diet CODE STATUS: Full code PUD prophylaxis: Protonix DVT prophylaxis: SCDs, aspirin 325 mg oral daily Discharge planning: Accepted at [facility]. Awaiting prior authorization. Continue with care at [facility]. This documentation was created by [employer] solid plasterer software. Every effort was made to ensure accuracy of solid plasterer. Any obvious errors or omissions should be clarified with the author of the document. Attestations Medical Necessity Statement*: Requires further hospitalization for postoperative care for ORIF while safe discharge planning is sought. Time Spent in Patient Care: Greater than 35 minutes Coding Level of Care Code Acute Wastewater Analyst Lab Analyst for Chg Fwd Diagnoses Closed fracture of right hip S72.001A HTN (hypertension) I10 Dyslipidemia E78.5 CVA (cerebral vascular accident) I63.9
[2022-07-24] MEDS: cefTRIAXone 1,000 MG in sodium chloride 0.9% (plus) 50 ML 100 MG IV (13:32)
[2022-07-24] MEDS: atorvastatin 40 mg Tablet PO (21:53)
[2022-07-25] VITALS: BP 144/83; PULSE 67; RESP 19; TEMP 36.5; O2SAT 96
[2022-07-25 04:00] VITALS: BP 133/78; PULSE 69; RESP 18; TEMP 36.7; O2SAT 94
[2022-07-25 05:34] VITALS: PULSE 69
[2022-07-25 05:47] LABS: Basophils # 0.1 10^3/uL (0.0-0.1); Basophils % 0.7 %; Eosinophils # 0.5 10^3/uL (0.0-0.8); Eosinophils % 4.4 %; Hematocrit 33.2 % (37.0-47.0); Hemoglobin 9.9 g/dL (11.5-15.3); Lymphocytes # 4.1 10^3/uL (0.8-4.8); Lymphocytes % 38.2 %; Mean Corpuscular HGB Conc 29.8 g/dL (30.0-36.0); Mean Corpuscular Hemoglobin 27.4 pg (28.0-34.0); Mean Platelet Volume 9.9 fL (7.4-10.4); Monocytes # 0.6 10^3/uL (0.2-0.9); Monocytes % 5.8 %; Neutrophils # 5.42 10^3/uL (1.8-7.7); Neutrophils % 50.3 %; Nucleated Red Blood Cells % 0 %; Platelet Count 209 10^3/cmm (130-400); Red Blood Count 3.61 10^6/uL (4.1-5.3); Red Cell Distribution Width 15.5 % (12.1-15.1); White Blood Count 10.8 10^3/uL (4.0-10.0)
[2022-07-25 06:01] LABS: Alanine Aminotransferase 7 U/L (0-33); Albumin Level 2.7 g/dL (3.5-5.2); Alkaline Phosphatase 108 U/L (35-105); Anion Gap 12.8 (5-19); Aspartate Amino Transferase 11 U/L (0-32); Blood Urea Nitrogen 14 mg/dL (8-23); Calcium 8.4 mg/dL (8.5-10.5); Carbon Dioxide 24 mmol/L (22-29); Chloride 107 mmol/L (98-107); Globulin 3.4 g/dL (1.3-4.6); Glucose 89 mg/dL (65-115); Osmolality Calculated 290 mOsm/kg (285-295); Potassium 3.8 mmol/L (3.5-5.1); Sodium 140 mmol/L (136-145); Total Bilirubin 0.3 mg/dL (0.15-1.2); Total Protein 6.1 g/dL (6.6-8.7)
[2022-07-25 07:04] LABS: SARS Covid-2 Antigen Negative (Negative)
[2022-07-25 07:57] VITALS: BP 138/80; PULSE 74; RESP 18; TEMP 36.6; O2SAT 94
--- NOTE | 2022-07-25 08:48 | P.DS_ITS ---
Discharge Providers Date of Admission: 07/19/22 19:58 Date of Discharge: July 25, 2022 Attending Provider at Admission: Grabiel Ramon MD Attending Provider at Discharge: Gilbert Sheppard MD Consults: Orthopedics: Dr. 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 She tells me that this afternoon, she was pulling weeds in her yard, when she fell on her right side, hitting her right hip, no loss of consciousness, no significant head trauma, no chest pain, no shortness of breath, no seizure-like symptoms no strokelike symptoms.? She is at her only complaint was severe right hip pain, pain with range of motion Hospital Course Hospital Course Patient was admitted to the hospital further evaluation and management. On admission she was found to have closed right hip fracture for which orthopedics was consulted and she underwent ORIF on 07/22. She tolerated procedure well and hospital stay was otherwise unremarkable. She continues to do well with physical therapy. Safe discharge plan were discussed in detail with patient and family and they were agreeable for transfer to SNF for short while to continue with rehabilitation. Patient has been discharged in hemodynamically stable condition for further rehabitation. Physical Exam Narrative: No acute distress. Heart regular normal S1-S2 Lungs clear to auscultation Abdomen soft nontender nondistended positive bowel sounds Extremities no clubbing cyanosis or edema, postsurgical dressing clean Urinary Catheter Management: Martinez: Cath Placed During This Visit: yes, but has since been removed by the nurse Reason for Continuing Indwelling Catheter: Decision to DC Catheter Urinary Catheter Date of Insertion: 07/19/22 Urinary Catheter Time of Insertion: 22:00 Date Urinary Catheter Removed: 07/23/22 Time Urinary Catheter Discontinued: 06:15 Discharge Data Studies Completed and Pending Completed Studies During Hospitalization Category Date Time Status CT cervical spin wo con* [id number] Stat Cat Scan 07/19/22 18:[address] head wo con* [id number] Stat Cat Scan 07/19/22 18:06 Completed XR chest 1V portable [id number] Stat Exams 07/19/22 18:06 Completed XR foot RT min 3V* [id number] Stat Exams 07/19/22 18:13 Completed XR hip RT 2-3V wo/w pel* [id number] Routine Exams 07/22/22 Completed XR hip RT 2-3V wo/w pel* [id number] Stat Exams 07/19/22 18:06 Completed Radiology Impressions Cervical Spine CT 07/19/22 18:06 IMPRESSION: No acute findings. Chest X-Ray 07/19/22 18:06 IMPRESSION: No acute findings. Head CT 07/19/22 18:06 IMPRESSION: No acute intracranial abnormality. Foot X-Ray 07/19/22 18:13 IMPRESSION: No acute findings. Hip/Pelvis X-Ray 07/22/22 00:00 Impression: Internal fixation of intertrochanteric right hip fracture. Laboratory Results WBC 10.8 10^3/uL (4.0-10.0) H 07/25/22 05:07 RBC 3.61 10^6/uL (4.1-5.3) L 07/25/22 05:07 Hgb 9.9 g/dL (11.5-15.3) L 07/25/22 05:07 Hct 33.2 % (37.0-47.0) L 07/25/22 05:07 MCV 92.0 fl (81-99) 07/25/22 05:07 MCH 27.4 pg (28.0-34.0) L 07/25/22 05:07 MCHC 29.8 g/dL (30.0-36.0) L 07/25/22 05:07 RDW 15.5 % (12.1-15.1) H 07/25/22 05:07 Plt Count 209 10^3/cmm (130-400) 07/25/22 05:07 MPV 9.9 fL (7.4-10.4) 07/25/22 05:07 Neut % (Auto) 50.3 % 07/25/22 05:07 Lymph % (Auto) 38.2 % 07/25/22 05:07 Leon % (Auto) 5.8 % 07/25/22 05:07 Eos % (Auto) 4.4 % 07/25/22 05:07 Baso % (Auto) 0.7 % 07/25/22 05:07 Neut # (Auto) 5.42 10^3/uL (1.8-7.7) 07/25/22 05:07 Lymph # (Auto) 4.1 10^3/uL (0.8-4.8) 07/25/22 05:07 Leon # (Auto) 0.6 10^3/uL (0.2-0.9) 07/25/22 05:07 Eos # (Auto) 0.5 10^3/uL (0.0-0.8) 07/25/22 05:07 Baso # (Auto) 0.1 10^3/uL (0.0-0.1) 07/25/22 05:07 Nucleated RBC % (auto) 0 % 07/25/22 05:07 Nucleated RBCs # 0.0 /100WBC 07/25/22 05:07 PT 13.70 SECONDS (12.1-14.9) 07/20/22 05:43 INR 1.02 (0.8-1.2) 07/20/22 05:43 APTT 21.5 SECONDS (23.9-36.7) L 07/19/22 19:36 Sodium 140 mmol/L (136-145) 07/25/22 05:07 Potassium 3.8 mmol/L (3.5-5.1) 07/25/22 05:07 Chloride 107 mmol/L (98-107) 07/25/22 05:07 Carbon Dioxide 24 mmol/L (22-29) 07/25/22 05:07 Anion Gap 12.8 (5-19) 07/25/22 05:07 BUN 14 mg/dL (8-23) 07/25/22 05:07 Creatinine 0.5 mg/dL (0.5-0.9) 07/25/22 05:07 GFR Calculation Not Reportable 07/25/22 05:07 Glucose 89 mg/dL (65-115) 07/25/22 05:07 Estimat Average Glucose 111 07/20/22 05:43 Hemoglobin A1c 5.5 % (4.0-6.0) 07/20/22 05:43 Calculated Osmolality 290 mOsm/kg (285-295) 07/25/22 05:07 Calcium 8.4 mg/dL (8.5-10.5) L 07/25/22 05:07 Phosphorus 3.2 mg/dL (2.5-4.5) 07/20/22 05:43 Magnesium 2.3 mg/dL (1.7-2.3) 07/20/22 05:43 Iron 41 ug/dL (37-145) 07/21/22 13:02 TIBC 207 mcg/dl 07/21/22 13:02 % Saturation 19.8 % (20-50) L 07/21/22 13:02 Unsat Iron Binding 166 ug/dL (112-347) 07/21/22 13:02 Total Bilirubin 0.3 mg/dL (0.15-1.2) 07/25/22 05:07 AST 11 U/L (0-32) 07/25/22 05:07 ALT 7 U/L (0-33) 07/25/22 05:07 Alkaline Phosphatase 108 U/L (35-105) H 07/25/22 05:07 Creatine Kinase 80 U/L (26-192) 07/19/22 19:36 Troponin T Baseline 12 ng/L (0-10) H 07/19/22 19:36 Troponin T 120 Minute 12.79 ng/L (0-10) H 07/19/22 21:31 Delta Troponin T 0.79 ABS# (0-10) 07/19/22 21:31 Troponin T Hi Sens 6Hr 11.96 ng/L (0-10) H 07/20/22 01:25 Troponin T Hi Sens 6Hr Delta -0.04 ng/L (0-12) L 07/20/22 01:25 NT-Pro-B Natriuret Pep 388 pg/mL (0-450) 07/20/22 05:43 Total Protein 6.1 g/dL (6.6-8.7) L 07/25/22 05:07 Albumin 2.7 g/dL (3.5-5.2) L 07/25/22 05:07 Globulin 3.4 g/dL (1.3-4.6) 07/25/22 05:07 Triglycerides 81 mg/dL (0-150) 07/20/22 05:43 Cholesterol 146 mg/dL (0-200) 07/20/22 05:43 LDL Cholesterol, Calc 87 mg/dL (50-129) 07/20/22 05:43 HDL Cholesterol 43 mg/dL (60-100) L 07/20/22 05:43 LDL/HDL Ratio 2.02 RATIO (0.00-3.22) 07/20/22 05:43 Cholesterol/HDL Ratio 3.40 mg/dL (0.0-4.40) 07/20/22 05:43 TSH 1.73 uIU/mL (0.27-4.20) 07/20/22 05:43 Urine Color Yellow (Yellow) 07/20/22 00:03 Urine Appearance Sl hazy (CLEAR) 07/20/22 00:03 Urine pH 5 (5-7) 07/20/22 00:03 Ur Specific [place] 1.020 (1.005-1.030) 07/20/22 00:03 Urine Protein Neg (Negative) 07/20/22 00:03 Urine Glucose (UA) Norm (Normal) 07/20/22 00:03 Urine Ketones Negative (Negative) 07/20/22 00:03 Urine Blood 2+ (Negative) H 07/20/22 00:03 Urine Nitrate Positive (Negative) H 07/20/22 00:03 Urine Bilirubin Neg (Negative) 07/20/22 00:03 Urine Urobilinogen Neg mg/dL (Negative) 07/20/22 00:03 Ur Leukocyte Esterase 1+ (Negative) H 07/20/22 00:03 Urine RBC 0-4 /hpf (0-2) H 07/20/22 00:03 Urine WBC 10-15 /hpf (0-5) H 07/20/22 00:03 Ur Squamous Epith Cells 5-10 /hpf (0-5) H 07/20/22 00:03 Amorphous Sediment Not Reportable 07/20/22 00:03 Urine Bacteria 3+ /hpf (NONE) H 07/20/22 00:03 Urine Mucus Trace /hpf 07/20/22 00:03 SARS-CoV-2 Ag (Rapid) Negative (Negative) 07/25/22 06:23 Blood Type A Positive 07/21/22 13:02 Rho(D) Type Positive 07/21/22 13:02 Antibody Screen Negative 07/21/22 13:02 Vitals Last Vital Signs Temp 97.8 F 07/25/22 07:57 Pulse 74 07/25/22 07:57 Resp 18 07/25/22 07:57 BP 138/80 07/25/22 07:57 Pulse Ox 94 07/25/22 07:57 O2 Del Method 07/25/22 07:57 O2 Flow Rate 1.5 07/25/22 07:57 Discharge Plan Discharge Patient Disposition: Xfer SNF Condition: Stable Prescriptions: New aspirin 325 mg Tablet,Delayed Release (Dr/Ec) 325 mg PO DAILY Qty: 30 0RF ferrous gluconate 324 mg (37.5 mg iron) Tablet 324 mg PO BIDWM Qty: 60 0RF Continued clopidogrel [Plavix] 75 mg tablet 75 mg PO DAILY Advair HFA 115-21 mcg/actuation HFA aerosol inhaler 2 puff inhalation BID meloxicam 15 mg tablet 15 mg PO DAILY Qty: 30 0RF atorvastatin 40 mg tablet 40 mg PO DAILY citalopram 40 mg tablet 40 mg PO DAILY pantoprazole 40 mg tablet,delayed release (DR/EC) 40 mg PO DAILY Rx Instructions: TAKE 30 MINUTES BEFORE BREAKFAST. lisinopril 30 mg tablet 30 mg PO DAILY acetaminophen 500 mg Tablet 500 mg PO Q6H PRN (Reason: Pain) Discharge Orders: Discharge Order (Routine); Ordered 07/25/22 Ordered By: Gilbert Sheppard Referrals: [facility] [Outside] Rios Anaya, [Primary Care Provider] - 1 week Discharge Diet: Regular Discharge Activity: Resume usual activity and Increase activity as tolerated Patient Instructions: Opioid Safety Activity Restrictions/Additional Instructions: Follow-up with your primary care provider within next 1 week. Continue with physical therapy as directed. Continue with the medications as before. Discharge Attestations Time Spent in Discharge Care*: greater than 30 min Specific Discharge Activities: educating patient, discussing with pcp/other providers, discussing with telephonic nurse case manager/social workers/dc planners, documenting/other paperwork and evaluating patient/reviewing data Status at Discharge: Cognitive status at discharge: cognitively intact , Behavioral status at discharge: cooperative , Functional status at discharge: uses cane/walker , Overall status at discharge: patient is progressing back to baseline Quality Metrics Clinical Quality Measures [ No reported AMI, CVA or VTE this stay] Coding Level of Care Code Acute Chg FW DC note Diagnoses Closed fracture of right hip S72.001A HTN (hypertension) I10 Dyslipidemia E78.5 CVA (cerebral vascular accident) I63.9
[2022-07-25] MEDS: ferrous gluconate 324 mg Tablet PO (10:03)
[2022-07-25] MEDS: docusate sodium 100 mg Capsule PO (10:03)
[2022-07-25] MEDS: atorvastatin 40 mg Tablet PO (10:03)
[2022-07-25] MEDS: lisinopril 10 mg Tablet 30 MG PO (10:04)
[2022-07-25] MEDS: aspirin 325 mg EC Tablet PO (10:04)
[2022-07-25] MEDS: citalopram 20 mg Tablet 40 MG PO (10:04)
[2022-07-25] MEDS: pantoprazole DR 40 mg Tablet PO (10:04)
[2022-07-25] MEDS: acetaminophen 325 mg Tablet 650 MG PO (11:20)
[2022-07-25 12:00] VITALS: BP 126/77; PULSE 81; RESP 17; TEMP 36.8; O2SAT 90
--- NOTE | 2022-07-25 13:37 | PC.NURSE ---
Discharge Note Patient discharged to [facility] via w/c accompanied by tow bar driver. Discharge instructions reviewed with patient and/or retail field representative. Mobile pharmacy medications and/or prescriptions provided. Belongings/home medications returned.
[2022-07-25 13:38] VITALS: BP 126/77; PULSE 81; RESP 17; TEMP 36.8; O2SAT 90
== END 2022-07-25 13:39 | disposition skilled nursing facility (03) | DRG 481 ==
LOC: ER 19:57 → MEDSURG 20:23
PROVIDERS: Internal Medicine; Specialist; Admitting Provider Family Medicine; Emergency Provider Emergency Medicine; PCP Family Medicine; Visit Provider Student in an Organized Health Care Education/Training Program
PROC: 0QS606Z Reposition Right Upper Femur with Intramedullary Internal Fixation Device, Open Approach (ICD-10-PCS; CPT 27245; principal; 2022-07-22 10:05)
DX: S72.141A Displaced intertrochanteric fracture of right femur, initial encounter for closed fracture (principal); N39.0 Urinary tract infection, site not specified; W01.0XXA Fall on same level from slipping, tripping and stumbling without subsequent striking against object, initial encounter; Z86.73 Personal history of transient ischemic attack (TIA), and cerebral infarction without residual deficits; E78.5 Hyperlipidemia, unspecified; K21.9 Gastro-esophageal reflux disease without esophagitis; I10 Essential (primary) hypertension; Z87.01 Personal history of pneumonia (recurrent); Z87.440 Personal history of urinary (tract) infections; Z87.891 Personal history of nicotine dependence; F03.90 Unspecified dementia, unspecified severity, without behavioral disturbance, psychotic disturbance, mood disturbance, and anxiety; B96.20 Unspecified Escherichia coli [E. coli] as the cause of diseases classified elsewhere; Z79.51 Long term (current) use of inhaled steroids; Z79.02 Long term (current) use of antithrombotics/antiplatelets
CPT/HCPCS: 36415; 51702; 70450; 71045; 72125; 73502; 73630; 76000; 80048; 80053; 80061; 81001; 82550; 83036; 83540; 83550; 83735; 83880; 84100; 84443; 84484; 85025; 85610; 85730; 86850; 86900; 87077; 87086; 87186; 87426; 90471; 90715; 93005; 94664; 96374; 97110; 97116; 97161; 97167; 97530; 97535; 99285; C1713; J0330; J0690; J0696; J0744; J1100; J2270; J2405; J2704; J3010; J7030

== ENCOUNTER → 2022-08-19 14:55 | Outpatient (BNVA) | payer MEDICARE, SELFPAY | PROVIDERS: PCP Family Medicine; Visit Provider Family Medicine | DX: R53.1 Weakness (principal); D64.9 Anemia, unspecified | CPT/HCPCS: 85025 ==

== ENCOUNTER 2022-09-30 06:00 | Outpatient (RCR) | payer MEDICARE, SELFPAY | END 2022-10-29 23:59 | disposition home or self-care (01) | LOC: SPT 06:00 | PROVIDERS: PCP Family Medicine; Visit Provider Family Medicine | DX: R53.1 Weakness (principal); S72.144A Nondisplaced intertrochanteric fracture of right femur, initial encounter for closed fracture; X58.XXXA Exposure to other specified factors, initial encounter | CPT/HCPCS: 97110; 97161 ==

== ENCOUNTER 2022-09-30 13:31 | Outpatient (CLI) | payer MEDICARE, SELFPAY ==
--- NOTE | 2022-09-30 14:15 | USCV_ITS ---
Sil Diaz Age: 82 Gender: F : 1940 Exam Date: 09/30/2022 13:59 Ordering Phys: Bernard Wakefield M.D ([email or web address]) Technologist: CT Exam Location[place] [facility] [place] [facility] [place] Indication: leg pain Risk Factors: Previous Vascular Surgery: RIGHT LEFT BP: 165.0 / 86.00 BP: 165.0/ 82.00 0 0 Waveform Velocity (cm/s) Velocity (cm/s) Waveform Triphasic 82.1 Iliac Prox 109.9 Biphasic Biphasic 103.3 Iliac Mid 103.7 Triphasic Biphasic 89.4 Iliac Distal 76.5 Biphasic Triphasic 80.1 SUPPLIER QUALITY ENGINEER 168.7 Biphasic Biphasic 95.2 SFA Prox 130.3 Biphasic Biphasic 104.3 SFA Mid 100.2 Biphasic Biphasic 88.0 SFA Dist 94.8 Triphasic Biphasic 79.5 POP 52.8 Biphasic Biphasic 75.6 EXPORT TRAFFIC DEPARTMENT MANAGER 73.4 Biphasic Biphasic 76.0 DPA 96.7 Biphasic 1.1 AMADO 1.1 FINDINGS wnl for age, some plq, no significant stenosis/occlusion Resting AMADO of 1.1 bilaterally. Mild to moderate dense irregular plaques bilaterally in the iliac and femoral arteries. Normal Doppler flow velocities bilaterally. CONCLUSIONS 1. Normal resting ABIs of 1.1 bilaterally 2. Mild to moderate dense plaques bilaterally at the iliac and femoral arteries 3. No significant arterial obstruction, based on the above findings Dr Ashley Tenorio MD [facility] (Electronically Signed) Final Date: 02 October 2022 07:49 S
== END 2022-09-30 13:32 | disposition home or self-care (01) ==
LOC: RAD 13:34
PROVIDERS: PCP Family Medicine; Visit Provider Internal Medicine
DX: M79.606 Pain in leg, unspecified (principal); I70.203 Unspecified atherosclerosis of native arteries of extremities, bilateral legs
CPT/HCPCS: 93925

== ENCOUNTER → 2022-10-29 14:31 | Outpatient (BNVA) | payer MEDICARE, SELFPAY | PROVIDERS: PCP Family Medicine; Visit Provider Internal Medicine | DX: I73.9 Peripheral vascular disease, unspecified (principal); E78.5 Hyperlipidemia, unspecified; I10 Essential (primary) hypertension; Z87.891 Personal history of nicotine dependence | CPT/HCPCS: 99213 ==

== ENCOUNTER 2022-10-30 06:00 | Outpatient (RCR) | payer MEDICARE, SELFPAY | END 2022-11-29 23:59 | disposition home or self-care (01) | LOC: SPT 06:00 | PROVIDERS: PCP Family Medicine; Visit Provider Family Medicine | DX: S72.144A Nondisplaced intertrochanteric fracture of right femur, initial encounter for closed fracture (principal); X58.XXXA Exposure to other specified factors, initial encounter; R53.1 Weakness | CPT/HCPCS: 97110; 97116 ==

== ENCOUNTER 2022-11-30 06:00 | Outpatient (RCR) | payer MEDICARE, SELFPAY | END 2022-12-03 23:59 | disposition home or self-care (01) | LOC: SPT 06:00 | PROVIDERS: PCP Family Medicine; Visit Provider Family Medicine | DX: Z47.89 Encounter for other orthopedic aftercare (principal); M25.551 Pain in right hip; R53.1 Weakness | CPT/HCPCS: 97110 ==

== ENCOUNTER → 2022-12-05 08:49 | Outpatient (BNVA) | payer MEDICARE, SELFPAY | PROVIDERS: PCP Family Medicine; Visit Provider Clinical Nurse Specialist Adult Health | DX: N39.0 Urinary tract infection, site not specified (principal); R39.9 Unspecified symptoms and signs involving the genitourinary system | CPT/HCPCS: 81000; 87077; 87086; 87184 ==

== ENCOUNTER → 2023-01-21 08:51 | Outpatient (BNVA) | payer MEDICARE, SELFPAY | PROVIDERS: PCP Family Medicine; Visit Provider Clinical Nurse Specialist Adult Health | DX: N39.0 Urinary tract infection, site not specified (principal); R31.9 Hematuria, unspecified | CPT/HCPCS: 81000; 87077; 87086; 87184 ==

== ENCOUNTER 2023-02-04 10:49 | Outpatient (CLI) | payer MEDICARE, SELFPAY ==
--- NOTE | 2023-02-04 11:10 | XR_ITS ---
WS: [id number] KUB, AP view, 02/04/2023 Clinical Data: left flank pian Comparison: None. Findings: No abnormal intraabdominal masses or calcifications are seen. There is no dilatated small bowel or ev idence of obstruction. There is a large amount of fecal material throughout the colon. 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 There is a right hip nail. XR/XR KUB [id number] Impression: Large amount of fecal material throughout the colon.
== END 2023-02-04 10:50 | disposition home or self-care (01) ==
LOC: RAD 10:52
PROVIDERS: PCP Family Medicine; Visit Provider Clinical Nurse Specialist Adult Health
DX: N39.0 Urinary tract infection, site not specified (principal); R10.9 Unspecified abdominal pain
CPT/HCPCS: 74018; 81000; 87077; 87086; 87184

== ENCOUNTER → 2023-02-16 10:08 | Outpatient (BNVA) | payer MEDICARE, SELFPAY | PROVIDERS: PCP Family Medicine; Visit Provider Clinical Nurse Specialist Adult Health | DX: N39.0 Urinary tract infection, site not specified (principal) | CPT/HCPCS: 81000; 87086 ==

== ENCOUNTER → 2023-03-02 10:25 | Outpatient (BNVA) | payer MEDICARE, SELFPAY | PROVIDERS: PCP Family Medicine; Visit Provider Clinical Nurse Specialist Adult Health | DX: N39.0 Urinary tract infection, site not specified (principal) | CPT/HCPCS: 81000 ==

== ENCOUNTER → 2023-06-18 10:10 | Outpatient (BNVA) | payer MEDICARE, SELFPAY | PROVIDERS: PCP Family Medicine; Visit Provider Podiatrist Foot & Ankle Surgery | DX: M21.611 Bunion of right foot (principal); M21.612 Bunion of left foot; B35.1 Tinea unguium; M62.40 Contracture of muscle, unspecified site; L84 Corns and callosities | CPT/HCPCS: 73630; 99204 ==

== ENCOUNTER 2023-07-01 06:22 | Day surgery (SDC) | payer MEDICARE, OTHER, SELFPAY ==
[2023-06-30 13:36] VITALS: BMI 24.2
[2023-07-01] VITALS (9 sets, daily range): BP systolic 125–189; BP diastolic 66–86; PULSE 45–58; RESP 14–18; TEMP 36.1–36.6; O2SAT 93–100
--- NOTE | 2023-07-01 | XR_ITS ---
WS: [id number] Right foot, C-arm fluoroscopy views, 07/01/2023 Clinical Data: Right foot bunionectomy Comparison: Right foot, 06/18/2023 Findings: There is an osteotomy of the distal right foot first metatarsal with a bunionectomy at the medial asp ect of the distal first metatarsal with 2 screws. There is an osteotomy of the base of the right firs t proximal phalanx with an oblique screw. XR/XR foot RT 2V [id number] Impression: Osteotomies and bunionectomy of the right first metatarsal and right first prox imal phalanx.
--- NOTE | 2023-07-01 06:28 | ECG_ITS ---
[facility] Test Date: 2023-07-01 Pat Name: Sil Diaz Department: Room: Gender: Female Executive Account Manager: : 1940 Requested By: Toby Walsh Order Number: [id number] Reading MD: Ashley Tenorio M.D. Measurements Intervals Dexter Rate: 59 P: 24 KS: 147 QRS: 28 QRSD: 100 T: 55 QT: 440 QTc: 437 Interpretive Statements SINUS BRADYCARDIA WITH OCCASIONAL SUPRAVENTRICULAR PREMATURE COMPLEXES Compared to ECG 07/20/2022 06:16:51 No significant changes Electronically Signed On 07-01-2023 23:30:54 CDT by Ashley Tenorio M.D. [email or web address]
[2023-07-01] MEDS: acetaminophen 1,000 MG/100 ML PIGGYBACK 400 MG IV (06:49)
[2023-07-01] MEDS: sodium chloride 0.9% 1,000 ML 30 ML IV (06:49)
[2023-07-01] MEDS: gabapentin 300 mg Capsule PO (06:57)
--- NOTE | 2023-07-01 07:42 | W.PM.OPSUD ---
Surgery/Procedure H&P Update DATE OF PROCEDURE: July 01, 2023 DATE H&P PERFORMED: 06/18/23 CHANGES TO PREVIOUS DOCUMENTATION: No changes PREOP DIAGNOSIS: Right foot hallux valgus PLANNED PROCEDURE: Operation Date: 07/01/23 08:05 Proposed Procedures p Right foot bunionectomy CPT 82607 M21.611(Right) - Aidan Jimenez DPM
[2023-07-01 07:48] LABS: Anion Gap 12.7 (5-19); Blood Urea Nitrogen 23 mg/dL (8-23); Calcium 8.8 mg/dL (8.5-10.5); Carbon Dioxide 25 mmol/L (22-29); Chloride 105 mmol/L (98-107); Glucose 91 mg/dL (65-115); Osmolality Calculated 289 mOsm/kg (285-295); Potassium 4.7 mmol/L (3.5-5.1); Sodium 138 mmol/L (136-145)
[2023-07-01] MEDS: ceFAZolin 2,000 MG in sodium chloride 0.9% (plus) 50 ML 100 MG IV (08:00)
--- NOTE | 2023-07-01 09:07 | ANES.PREANE2 ---
Pre-Anesthetic Assessment Height/Weight: Height 1.5 m Weight 54.431 kg Temp Pulse Resp BP Pulse Ox O2 Del Method 97.4 F L 58 L 18 125/79 93 Room Air 07/01/23 06:37 07/01/23 06:37 07/01/23 06:37 07/01/23 06:37 07/01/23 06:37 07/01/23 06:50 Preop Diagnosis: Right foot hallux valgus Operation Date: 07/01/23 08:05 Proposed Procedures p Right foot bunionectomy CPT 32853 M21.611(Right) - Aidan Jimenez DPM Familial anesthetic complications: none Was Beta Sunil taken within 24 hours: N/A Was Clonidine taken within 24 hours: N/A Last intake: Intake Last Liquid Date 06/30/23 Last Liquid Time 18:00 Last Solid Date 06/30/23 Last Solid Time 18:00 Social No alcohol and No tobacco Exam alert, oriented x 3, clear to auscultation bilaterally and regular rate & rhythm Airway Submandibular: within normal limits Cervical ROM: within normal limits Mallampati: Class II Dentition: false CV/HEM Hypertension, Murmur and Peripheral Vascular Disease Metabolic Hyperlipidemia Neuropsych Anxiety and Cerebrovascular Accident Anesthetic Plan ASA status: 3 Anesthesia: MAC Medications/Allergies Home Medications Medication Instructions Recorded Confirmed Last Taken Type fluticasone propionate 115 2 puff inhalation BID 07/10/22 07/01/23 07/18/22 History mcg-salmeterol 21 mcg/actuation HFA inhaler (Advair HFA) acetaminophen 500 mg tablet 500 mg PO Q6H PRN Pain 07/19/22 07/01/23 Unknown History mupirocin 2 % topical ointment topical 08/19/22 06/18/23 Unknown History atorvastatin 20 mg tablet 20 mg PO DAILY #90 tabs 10/30/22 06/30/23 06/30/23 Rx citalopram 40 mg tablet 40 mg PO DAILY #90 tabs 11/04/22 06/30/23 06/30/23 Rx clopidogrel 75 mg tablet (Plavix) 75 mg PO DAILY #90 tabs 11/04/22 06/30/23 06/28/23 Rx lisinopril 30 mg tablet 30 mg PO DAILY #90 tabs 11/04/22 06/30/23 06/30/23 Rx meloxicam 15 mg tablet See Rx Instructions .Route 11/04/22 06/30/23 06/30/23 Rx .COMPLEX #90 tabs pantoprazole 40 mg tablet,delayed 40 mg PO DAILY #90 tabs 11/04/22 06/30/23 06/30/23 Rx release clotrimazole 1 % topical cream 1 applic topical BID 2 weeks #45 06/04/23 07/01/23 Unknown Rx grams tramadol 50 mg tablet 50 mg PO TID PRN pain #60 tabs 06/04/23 06/30/23 06/30/23 Rx Allergies Allergy/AdvReac Type Severity Reaction Status Date / Time Sulfa (Sulfonamide Allergy RASH Verified 06/30/23 13:28 Antibiotics) Current Medications Generic Name Dose Route Start Last Admin Trade Name Freq PRN Reason Stop Dose Admin Sodium Chloride 1,000 mls @ 30 mls/hr 07/01/23 06:30 07/01/23 06:49 Sodium Chloride 0.9% IV 07/02/23 06:29 30 mls/hr .Q24H KENZIE Administration PFSH Anesthesia Medical History Acute respiratory failure with hypoxia CAP (community acquired pneumonia) Cat bite CVA (cerebral vascular accident) Dyslipidemia GERD (gastroesophageal reflux disease) Heart murmur HTN (hypertension) Sepsis Urinary tract infection Surgical History H/O lumbar discectomy History of cholecystectomy Family History Other Family history non-contributory Social History Smoking and tobacco status: former smoker Alcohol intake: never Substance/Drug Use: never Housing: House Data Anesthesia 07/01/23 06:55 BMP 07/01/23 06:55 Sodium 138 Potassium 4.7 Chloride 105 Carbon Dioxide 25 BUN 23 Creatinine 1.0 H Glucose 91 Calcium 8.8 Cardiac Studies: Echocardiogram 04/07/22 Echocardiogram Ultrasound 03/30/21
--- NOTE | 2023-07-01 09:16 | PC.NURSE ---
Pt arrived to PACU, resting comfortably, O2 at 6L/min via simple mask. Dressing and post op shoe to right foot C/D/I, right toes p/w/d, cap refill < 3 seconds. FOB elevated.
--- NOTE | 2023-07-01 09:48 | PM.OP ---
Operative Report Date of procedure: July 01, 2023 Pre-op diagnosis: Preop Diagnosis Right foot hallux valgus with contracted extensor hallucis longus tendon Post-op diagnosis: Same Post-op findings: Hallux valgus deformity with contracted extensor hallucis longus tendon Procedure done: Right foot Jose Alberto Arie bunionectomy CPT 00244 with extensor hallucis longus tendon lengthening Implants: two 3.0 partially-threaded headless screws from [employer] and one 2.5 partially-threaded headless screw from [employer] Surgeon: Dr. Aidan Jimenez, D.P.M. Estimated blood loss: Less than 10 cc 45 minutes Complications: None Findings: See above Procedure: Patient is a 83-year-old female that has a history of right foot hallux valgus deformity with contracted extensor hallucis longus tendon. The patient has had the aforementioned chief complaint for some time. Conservative treatment measures have been attempted and the patient has opted for surgical intervention at this time. A lengthy discussion regarding the procedure, including risks and complications has been had with the patient and is noted in the recent clinic note. Written and verbal consent have been obtained. All patient questions have been answered to the patient?s satisfaction. No written or verbal guarantees have been given or implied. The patient has been NPO since midnight. The history has been reviewed and the history and physical is current. The signed consent was confirmed and placed in the patient chart. Patient imaging has been reviewed and is consistent with the diagnosis. Under mild sedation, the patient was brought into the operating room and placed on the table in the supine position. IV antibiotics were given by the anesthesia team as preoperative surgical prophylaxis. IV sedation was then performed by the anesthesiateam. A local field block was then performed using 0.5% Marcaine plain. A pneumatic tourniquet was then placed about the right ankle. The operative extremity was then prepped and draped in the usual fashion. The extremity was then elevated and exsanguinated before the tourniquet was inflated to 250 mmHg. After inflation, the following procedure was then performed. Attention was directed to the first metatarsophalangeal joint of the right foot where there was noted to be hallux valgus deformity with contracted extensor hallucis longus tendon. A 6 cm incision was made over the first metatarsophalangeal joint. Dissection was carried down through subcutaneous and superficial fascia to the joint capsule. Any bleeders were cauterized as necessary. The joint capsule was incised to expose the underlying first metatarsophalangeal joint and the medial eminence of the bunion. A sagittal bone saw was then used to remove the medial eminence of the bunion before an offset V osteotomy was made through the head of the first metatarsal. The capital fragment was then translated in the transverse plane laterally to correct the 1?2 intermetatarsal angle. This was then temporarily fixated with guidewires before to 3.0 headless partially-threaded screws from [employer] were inserted across the osteotomy site. Good positioning of the osteotomy was noted. The medial eminence was then shaved down. Attention was then directed to the proximal phalanx where a sagittal bone saw was used to make an Rhea osteotomy. This was closed down and a guidewire was driven across the osteotomy site before a 2.5 headless partially-threaded screw was inserted across the osteotomy site. Good positioning of the screws and osteotomies were noted on C-arm imaging as well as clinically. Attention was then directed to the extensor hallucis longus tendon which was then incised longitudinally before being split distally approximately transversely in Z-lengthening fashion. The extensor hallucis longus was then positioned in the appropriate position before being repaired using 3-0 Vicryl. The site was then irrigated with copious amounts of sterile saline. Attention was then directed to closure. Deep tissue including capsular closure was performed with 3-0 Vicryl followed by subcuticular closure with 4-0 Vicryl and skin closed with 4-0 nylon. The tourniquet was let down prior to closure to assess for hemostasis. Hemostasis was achieved. The incision site was dressed with Xeroform, 4 x 4 gauze, Kerlix and Oseas. The patient tolerated the procedure and anesthesia well and without complication. The patient was transported from the operating room to the recovery room with vital signs stable and vascular status intact to all digits of the right foot. The patient was given both written and verbal instructions to remain weightbearing as tolerated in postop shoe to the operative extremity, to keep dressings/splint clean, dry and intact and to take pain medication as directed. The patient will follow-up in the outpatient setting at their scheduled appointment. The patient was discharged with my personal number and was instructed to call if any questions or issues should arise. They were discharged home once anesthesia criteria was met. Patient was advised to continue her medications tomorrow including her Plavix.
--- NOTE | 2023-07-01 10:12 | SUR.PHASEII ---
Anesthesia aware of increased b/p compared to baseline per PACU nurse, no medication ordered. patient was told to take b/p medication when she gets home.
--- NOTE | 2023-07-01 15:34 | ANE.PACU2 ---
Inpatient post-anesthesia follow up: Airway intact: Yes Vital signs: Temperature 97.8 F Pulse Rate 49 Respiratory Rate 16 Blood Pressure 189/86 Pulse Oximetry 94 Oxygen Delivery Me thod Room Air Oxygen Flow Rate 6 Fraction of Inspir ed Oxygen Hydration adequate: Yes Nausea and vomiting: No Pain level: 1 Mental status: Baseline
== END 2023-07-01 10:40 | disposition home or self-care (01) ==
PROVIDERS: Anesthesiology; PCP Family Medicine; Visit Provider Podiatrist Foot & Ankle Surgery
PROC: (CPT 28296; principal; 2023-07-01 07:55)
DX: M21.611 Bunion of right foot (principal); I10 Essential (primary) hypertension; I73.9 Peripheral vascular disease, unspecified; E78.5 Hyperlipidemia, unspecified; F41.1 Generalized anxiety disorder; Z86.73 Personal history of transient ischemic attack (TIA), and cerebral infarction without residual deficits; Z79.02 Long term (current) use of antithrombotics/antiplatelets; K21.9 Gastro-esophageal reflux disease without esophagitis; Z87.891 Personal history of nicotine dependence; R00.1 Bradycardia, unspecified
CPT/HCPCS: 28299; 36415; 73620; 76000; 80048; 93005; C1713; J0131; J0690; J2704; J3490; J7030

== ENCOUNTER → 2023-07-15 14:25 | Outpatient (BNVA) | payer MEDICARE, OTHER, SELFPAY | PROVIDERS: PCP Family Medicine; Visit Provider Podiatrist Foot & Ankle Surgery | DX: M79.671 Pain in right foot (principal); M21.611 Bunion of right foot; L13.9 Bullous disorder, unspecified | CPT/HCPCS: 73630; 99024 ==

== ENCOUNTER → 2023-07-21 09:58 | Outpatient (BNVA) | payer MEDICARE, OTHER, SELFPAY | PROVIDERS: PCP Family Medicine; Visit Provider Podiatrist Foot & Ankle Surgery | DX: L13.9 Bullous disorder, unspecified; M21.611 Bunion of right foot | CPT/HCPCS: 99024 ==

== ENCOUNTER → 2023-07-28 15:08 | Outpatient (BNVA) | payer MEDICARE, OTHER, SELFPAY | PROVIDERS: PCP Family Medicine; Visit Provider Podiatrist Foot & Ankle Surgery | DX: L13.9 Bullous disorder, unspecified; M21.611 Bunion of right foot | CPT/HCPCS: 99024 ==

== ENCOUNTER → 2023-08-26 14:14 | Outpatient (BNVA) | payer MEDICARE, OTHER, SELFPAY | PROVIDERS: PCP Family Medicine; Visit Provider Podiatrist Foot & Ankle Surgery | DX: Z98.890 Other specified postprocedural states; L13.9 Bullous disorder, unspecified | CPT/HCPCS: 73630; 99024 ==

== ENCOUNTER → 2023-09-01 12:35 | Outpatient (BNVA) | payer MEDICARE, OTHER, SELFPAY | PROVIDERS: PCP Family Medicine; Visit Provider Family Medicine | DX: D64.9 Anemia, unspecified (principal); I10 Essential (primary) hypertension; I63.9 Cerebral infarction, unspecified; R53.1 Weakness; Z13.6 Encounter for screening for cardiovascular disorders | CPT/HCPCS: 80053; 80061; 85025 ==

== ENCOUNTER → 2024-04-18 10:37 | Outpatient (BNVA) | payer MEDICARE, OTHER, SELFPAY | PROVIDERS: PCP Family Medicine; Visit Provider Dermatology | DX: D48.5 Neoplasm of uncertain behavior of skin (principal); L82.1 Other seborrheic keratosis; L57.8 Other skin changes due to chronic exposure to nonionizing radiation | CPT/HCPCS: 11102; 99203 ==

== ENCOUNTER → 2024-05-23 14:38 | Outpatient (BNVA) | payer MEDICARE, OTHER, SELFPAY | PROVIDERS: PCP Family Medicine; Visit Provider Dermatology | DX: L28.1 Prurigo nodularis (principal) | CPT/HCPCS: 99213 ==

== ENCOUNTER 2024-10-21 15:30 | Inpatient (IN) | payer MEDICARE, SELFPAY ==
[2024-10-21] VITALS (33 sets, daily range): BP systolic 79–142; BP diastolic 47–81; PULSE 66–105; RESP 6–22; TEMP 36.3–36.7; O2SAT 88–100; BMI 25.3
--- NOTE | 2024-10-21 15:34 | CTR_ITS ---
PROCEDURE INFORMATION: Exam: CT Head Without Contrast Exam date and time: 10/21/2024 3:31 PM Age: 84 years old Clinical indication: Stroke-like symptoms; Altered mental status/memory loss; Additional info: Symptoms of acute stroke TECHNIQUE: Imaging protocol: Computed tomography of the head without contrast. Radiation optimization: All CT scans at this facility use at least one of these dose optimization techniques: automated exposure control; mA and/or kV adjustment per patient size (includes targeted exams where dose is matched to clinical indication); or iterative reconstruction. Other technique: STROKE PROTOCOL was implemented. COMPARISON: CT head wo con* [id number] 07/19/2022 6:50 PM RADIATION DOSE METRICS: Total DLP (mGy-cm): 1095.68 FINDINGS: Brain: No intracranial hemorrhage. There is global parenchymal volume loss. Periventricular white matter hypoattenuation is nonspecific but most likely due to severe small vessel disease. No evidence of acute territorial infarct or cerebral edema. No mass effect or midline shift. Cerebral ventricles: Prominent ventricles likely secondary to volume loss. Paranasal sinuses: Visualized paranasal sinuses are clear. Mastoid air cells: The mastoid air cells are clear. Bones: The calvarium is intact. Soft tissues: Soft tissues are unremarkable as visualized. CT/CT head thrombolytic [id number] IMPRESSION: 1. No acute intracranial findings. 2. Severe chronic microvascular ischemic changes. ASSESSMENT: ASPECTS ([place] Stroke Program Early CT Score) is 10.
--- NOTE | 2024-10-21 15:38 | W.ED.GENADLT ---
HPI - General Adult General: Chief complaint: Neuro Symptoms/Deficit Stated complaint: stroke like symptoms Time Seen by Provider: 10/21/24 15:34 History of Present Illness: 84-year-old male presents to the emergency room. Patient was called as a stroke alert in the field she was found at home with difficulty with speech. They reported left-sided weakness however when she arrived here she had no weakness at all she is moving all extremities appropriately she does seem somewhat confused she answer some questions but is some difficulty. No family at the bedside initially. She denies chest pains she does have some abdominal discomfort. Associated symptoms: Deny chest pain, dyspnea or rash Related Data Home Medications Medication Instructions Recorded Confirmed fluticasone propionate 115 2 puff inhalation BID 07/10/22 08/26/23 mcg-salmeterol 21 mcg/actuation HFA inhaler (Advair HFA) acetaminophen 500 mg tablet 500 mg PO Q6H PRN Pain 07/19/22 09/06/24 mupirocin 2 % topical ointment topical 08/19/22 08/26/23 Previous Rx's Medication Instructions Recorded citalopram 40 mg tablet 40 mg PO DAILY #90 tabs 11/04/22 clotrimazole 1 % topical cream 1 applic topical BID 2 weeks #45 06/04/23 grams cephalexin 500 mg capsule 500 mg PO TID 10 days #30 caps 07/15/23 diphenhydramine HCl 25 mg capsule 25 mg PO TID PRN allergy symptoms 07/15/23 #21 caps atorvastatin 20 mg tablet 20 mg PO DAILY #90 tabs 12/03/23 clopidogrel 75 mg tablet (Plavix) 75 mg PO DAILY #90 tabs 12/17/23 meloxicam 15 mg tablet See Rx Instructions .Route 12/17/23 .COMPLEX #90 tabs pantoprazole 40 mg tablet,delayed 40 mg PO DAILY #90 tabs 12/17/23 release tramadol 50 mg tablet 50 mg PO TID PRN pain #60 tabs 02/09/24 amlodipine 5 mg-valsartan 160 mg 1 tab PO DAILY bp #90 tabs 04/26/24 tablet albuterol sulfate 90 mcg/actuation 2 puff inhalation QID wheezing 09/06/24 aerosol inhaler #8.5 grams doxycycline hyclate 100 mg capsule 100 mg PO BID lung infection #20 09/06/24 caps prednisone 10 mg tablet See Rx Instructions PO DAILY lung 09/06/24 inflammation #15 tabs Allergies Allergy/AdvReac Type Severity Reaction Status Date / Time chlorhexidine Allergy blisters Verified 09/06/24 13:58 [From ChloraPrep Clear] isopropyl alcohol Allergy blisters Verified 09/06/24 13:58 [From ChloraPrep Clear] Sulfa (Sulfonamide Allergy RASH Verified 09/06/24 13:58 Antibiotics) Review of Systems Const: Denies: fever(s) or chills Card: Denies: chest pain Resp: Denies: dyspnea GI: Denies: abdominal pain : Denies: dysuria, urinary frequency or urinary urgency Musc: Denies: neck pain or back pain Skin/Breast: Denies: rash PFSH ED PFSH: Medical History Interstitial lung disease Aortic aneurysm Mesenteric artery stenosis Heart murmur Sepsis Acute respiratory failure with hypoxia Urinary tract infection CAP (community acquired pneumonia) GERD (gastroesophageal reflux disease) Cat bite CVA (cerebral vascular accident) Dyslipidemia HTN (hypertension) Surgical History History of cholecystectomy H/O lumbar discectomy Family History Other Family history non-contributory Social History Smoking and tobacco/nicotine status: former use of tobacco/nicotine Alcohol intake: never Substance/Drug Use: never Housing: House Physical Exam Const: COMMON NORMALS: no acute distress GENERAL APPEARANCE: cooperative and comfortable ORIENTATION/CONSCIOUSNESS: Yes awake HENMT: COMMON NORMALS: normocephalic, atraumatic and hearing grossly normal bilaterally HEAD & SCALP: normocephalic and atraumatic Resp: COMMON NORMALS: normal respiratory effort, No retractions, No use of accessory muscles and clear to auscultation bilaterally AUSCULTATION: clear to auscultation bilaterally Cardio: COMMON NORMALS: regular rate, regular rhythm and No murmurs present (Cardio) RATE: regular rate RHYTHM: regular rhythm GI: COMMON NORMALS: Soft to palpation and No hepatosplenomegaly present AUSCULTATION: Yes normoactive bowel sounds PALPATION: Yes Soft to palpation, No Tenderness to palpation present (GI), No Guarding due to palpation present (GI) and Yes No hepatosplenomegaly present Extremity: COMMON NORMALS: normal to inspection, capillary refill normal, no clubbing, cyanosis or edema, no calf tenderness and no pedal edema Skin: COMMON NORMALS: no rashes or lesions noted GENERAL SKIN EXAM: no rashes or lesions noted Course Vital Signs: Vital signs: Vital Signs Temperature 98.0 F 10/22/24 03:45 Pulse Rate 68 10/22/24 04:30 Respiratory Rate 4 L 10/22/24 04:30 Blood Pressure 105/47 10/22/24 04:30 Pulse Oximetry 92 10/22/24 04:30 Oxygen Delivery Me thod Nasal Cannula 10/22/24 03:45 Oxygen Flow Rate 2 10/22/24 03:45 MDM - General Adult Medical Decision Making Cystitis with altered mental status leukocytosis. Patient does not have any focal neurologic deficits initially she was called as a stroke alert however on exam believe all of her stroke score points are related to her altered mental status rather than truly having a stroke. I discussed Dr. Phipps she concurred. Will admit for her altered mental status with leukocytosis started on IV antibiotics. Lactic acid is slightly elevated at 2.3. Blood pressure is low patient been given sepsis bolus as well as antibiotics discussed with hospitalist orders written Medical Records I reviewed the patient's medical records. Lab Data I reviewed the patient's lab results. 10/22/24 04:36 10/22/24 04:[address] 10/21/24 15:34 IMPRESSION: 1. No acute intracranial findings. 2. Severe chronic microvascular ischemic changes. ASSESSMENT: ASPECTS ([place] Stroke Program Early CT Score) is 10. Abdomen/Pelvis CT 10/21/24 15:44 IMPRESSION: 1. Diffuse bladder wall thickening, which is suggestive of cystitis in the appropriate clinical setting. 2. Otherwise, no acute findings. 3. Mild infrarenal abdominal aortic aneurysm, mildly increased in size since 2021, now measuring 2.7 x 2.6 cm (previously 2.4 x 2.5 cm). 4. 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 5. 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 6. Nonspecific bilateral basilar peripheral reticulation and bronchiolectasis, suggestive of underlying interstitial lung disease. Findings appear grossly unchanged since 2021. Chest X-Ray 10/21/24 17:24 IMPRESSION: 1. Left apical nodular opacities, the superior of which is new since 2021 and the inferior of which appears increased in size since 2021 and is partially obscured by an overlying EKG electrodes/lead. The superior lesion may represent pneumonia in the appropriate clinical setting, although given persistence of the inferior lesion, these may represent discrete pulmonary nodules. Consider further characterization with chest CT. 2. Bilateral peripheral areas of reticulation and fibrotic changes, suspicious for underlying interstitial lung fibrosis. Laboratory Results WBC 18.78 10^3/uL (3.29-11.43) H 10/21/24 15:05 RBC 4.56 10^6/uL (3.85-5.65) 10/21/24 15:05 Hgb 12.30 g/dL (11.27-16.99) 10/21/24 15:05 Hct 41.2 % (36-47) 10/21/24 15:05 MCV 90.4 fl (85-98) 10/21/24 15:05 MCH 27.0 pg (27-33) 10/21/24 15:05 MCHC 29.9 g/dL (30-55) L 10/21/24 15:05 RDW 16.2 % (12.1-15.1) H 10/21/24 15:05 Plt Count 359 10^3/cmm (157-399) 10/21/24 15:05 MPV 10.0 fL (7.4-10.4) 10/21/24 15:05 Neut % (Auto) 47.1 % 10/21/24 15:05 Lymph % (Auto) 42.5 % 10/21/24 15:05 [place] % (Auto) 6.0 % 10/21/24 15:05 Eos % (Auto) 3.5 % 10/21/24 15:05 Baso % (Auto) 0.4 % 10/21/24 15:05 Neut # (Auto) 8.83 10^3/uL (1.8-7.7) H 10/21/24 15:05 Lymph # (Auto) 8.0 10^3/uL (0.8-4.8) H 10/21/24 15:05 [place] # (Auto) 1.1 10^3/uL (0.2-0.9) H 10/21/24 15:05 Eos # (Auto) 0.7 10^3/uL (0.0-0.8) 10/21/24 15:05 Baso # (Auto) 0.1 10^3/uL (0.0-0.1) 10/21/24 15:05 Nucleated RBC % (auto) 0 % 10/21/24 15:05 Nucleated RBCs # 0.0 /100WBC 10/21/24 15:05 PT 13.40 SECONDS (12.1-14.9) 10/21/24 15:05 INR 0.99 (0.8-1.2) 10/21/24 15:05 APTT 27.3 SECONDS (23.9-36.7) 10/21/24 15:05 Sodium 142 mmol/L (136-145) 10/21/24 15:05 Potassium 4.3 mmol/L (3.5-5.1) 10/21/24 15:05 Chloride 109 mmol/L (98-107) H 10/21/24 15:05 Carbon Dioxide 23 mmol/L (22-29) 10/21/24 15:05 Anion Gap 14.3 (5-19) 10/21/24 15:05 BUN 16 mg/dL (8-23) 10/21/24 15:05 Creatinine 1.0 mg/dL (0.5-0.9) H 10/21/24 15:05 GFR Calculation Not Reportable 10/21/24 15:05 Glucose 108 mg/dL (65-115) 10/21/24 15:05 POC Glucose 94 mg/dL (70-110) 10/21/24 15:35 Calculated Osmolality 296 mOsm/kg (285-295) H 10/21/24 15:05 Lactic Acid 2.3 mmol/L (0.5-2.2) H 10/21/24 15:05 Calcium 8.8 mg/dL (8.5-10.5) 10/21/24 15:05 Total Bilirubin 0.4 mg/dL (0.15-1.2) 10/21/24 15:05 AST 17 U/L (0-32) 10/21/24 15:05 ALT 12 U/L (0-33) 10/21/24 15:05 Alkaline Phosphatase 144 U/L (35-105) H 10/21/24 15:05 Creatine Kinase 49 U/L (26-192) 10/21/24 15:05 Total Protein 6.7 g/dL (6.6-8.7) 10/21/24 15:05 Albumin 3.7 g/dL (3.5-5.2) 10/21/24 15:05 Globulin 3.0 g/dL (1.3-4.6) 10/21/24 15:05 Urine Color Dark yellow (Yellow) A 10/21/24 16:48 Urine Appearance Clear (CLEAR) 10/21/24 16:48 Urine pH 5.5 (5-7) 10/21/24 16:48 Ur Specific Mobile 1.050 (1.005-1.030) H 10/21/24 16:48 Urine Protein 1+ (Negative) A 10/21/24 16:48 Urine Glucose (UA) Negative (Normal) 10/21/24 16:48 Urine Ketones Negative (Negative) 10/21/24 16:48 Urine Blood Non-haemolysed trace (Negative) 10/21/24 16:48 Urine Nitrate Positive (Negative) A 10/21/24 16:48 Urine Bilirubin Negative (Negative) 10/21/24 16:48 Urine Urobilinogen 1.0 mg/dL (Negative) 10/21/24 16:48 Ur Leukocyte Esterase Trace (Negative) A 10/21/24 16:48 Urine RBC 0-2 /hpf (0-2) 10/21/24 16:48 Urine WBC 11-20 /hpf (0-5) H 10/21/24 16:48 Ur Squamous Epith Cells 0-5 /hpf (0-5) 10/21/24 16:48 Amorphous Sediment Not Reportable 10/21/24 16:48 Urine Bacteria 4+ /hpf (NONE) H 10/21/24 16:48 Hyaline Casts 17.77 /lpf 10/21/24 16:48 Urine Opiates Screen Negative ng/mL (Negative) 10/21/24 16:48 Ur Barbiturates Screen Negative ng/mL (Negative) 10/21/24 16:48 Ur Phencyclidine Scrn Negative ng/mL (Negative) 10/21/24 16:48 Ur Amphetamines Screen Negative ng/mL (Negative) 10/21/24 16:48 U Benzodiazepines Scrn Negative ng/mL (Negative) 10/21/24 16:48 Urine Cocaine Screen Negative ng/mL (Negative) 10/21/24 16:48 U Marijuana (THC) Screen Negative ng/mL (Negative) 10/21/24 16:48 All radiology interpretation(s) finalized by discharge Discharge Plan Discharge Patient Disposition: Admitted As Inpatient Admit Provider: José Miguel Yepez Clinical Impression: Urinary tract infection, Heart murmur, Weakness Condition: Stable Coding Level of Care Code ED Field Representative/Health Education for Marialuisa Freeman NIH stroke score NIHSS Level Of Consciousness - 1a: 0 Level Of Consciousness Commands - 1c: Both Correct Best Gaze - 2: Normal Visual Hunter - 3: No Visual Loss Facial Palsy - 4: Normal Motor Arm Right - 5: No Drift Motor Arm Left - 5: No Drift Motor Leg Right - 6: No Drift Motor Leg Left - 6: No Drift Limb Ataxia - 7: Absent Sensory - 8: Normal Best Language - 9: No Aphasia Dysarthia - 10: Mild/Moderate Dysarthia Extinction And Inattention - 11: 0
[2024-10-21 15:43] LABS: Glucose Point of Care 94 mg/dL (70-110)
[2024-10-21 15:44] LABS: Basophils # 0.1 10^3/uL (0.0-0.1); Basophils % 0.4 %; Eosinophils # 0.7 10^3/uL (0.0-0.8); Eosinophils % 3.5 %; Hematocrit 41.2 % (36-47); Lymphocytes % 42.5 %; Mean Corpuscular HGB Conc 29.9 g/dL (30-55); Mean Corpuscular Volume 90.4 fl (85-98); Monocytes # 1.1 10^3/uL (0.2-0.9); Neutrophils # 8.83 10^3/uL (1.8-7.7); Neutrophils % 47.1 %; Nucleated Red Blood Cells % 0 %; Platelet Count 359 10^3/cmm (157-399); Red Blood Count 4.56 10^6/uL (3.85-5.65); Red Cell Distribution Width 16.2 % (12.1-15.1); White Blood Count 18.78 10^3/uL (3.29-11.43)
--- NOTE | 2024-10-21 15:44 | CTR_ITS ---
PROCEDURE INFORMATION: Exam: CT Abdomen And Pelvis With Contrast Exam date and time: 10/21/2024 4:21 PM Age: 84 years old Clinical indication: Abdominal pain; Generalized; Additional info: Abd pain TECHNIQUE: Imaging protocol: Computed tomography of the abdomen and pelvis with contrast. Radiation optimization: All CT scans at this facility use at least one of these dose optimization techniques: automated exposure control; mA and/or kV adjustment per patient size (includes targeted exams where dose is matched to clinical indication); or iterative reconstruction. Contrast material: OMNI 350; Contrast volume: 100 ml; Contrast route: INTRAVENOUS (IV); COMPARISON: CT abdomen pelvis w con* [id number] 01/02/2022 12:57 PM RADIATION DOSE METRICS: Total DLP (mGy-cm): 371.37 FINDINGS: Lungs: Nonspecific bilateral basilar peripheral reticulation and bronchiolectasis, suggestive of underlying interstitial lung disease. Findings appear grossly unchanged since 2021. Heart: Partially imaged aortic valvular calcifications. Liver: The liver is unremarkable. Gallbladder and biliary ducts: Mild intrahepatic biliary ductal dilatation, which may be due to post cholecystectomy status. Pancreas: The pancreas is unremarkable. Spleen: Nonspecific subcentimeter hypodensity along the inferior aspect of the spleen, stable compared to the prior study and possibly hemangioma. The spleen is otherwise unremarkable. Adrenal glands: The adrenal glands are unremarkable. Kidneys and ureters: Punctate right-sided nonobstructive renal stones. No hydronephrosis. The left kidney is unremarkable. Stomach and bowel: There is no bowel wall thickening. No bowel obstruction. Appendix: Appendix is not identified. No findings to suggest acute appendicitis. Intraperitoneal space: No significant peritoneal free fluid. No free peritoneal air. Vasculature: The vasculature demonstrates diffuse marked atherosclerotic calcification. There is a stable descending aorta aneurysm measuring up to 2.9 x 3.5 cm at the level of the diaphragmatic hiatus. There is also an infrarenal abdominal aortic aneurysm which appears mildly increased in size since 2021, now measuring 2.7 x 2.6 cm (previously 2.4 x 2.5 cm). 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 Lymph nodes: No enlarged lymph nodes by size criteria. Urinary bladder: There is diffuse bladder wall thickening. Reproductive: Uterus is unremarkable. No suspicious adnexal lesion seen. Bones/joints: The spine demonstrates severe degenerative changes at multiple levels. Right femoral antegrade intramedullary nail with a proximal interlocking screw. Soft tissues: Soft tissues are unremarkable as visualized. CT/CT abdomen pelvis w con* [id number] IMPRESSION: 1. Diffuse bladder wall thickening, which is suggestive of cystitis in the appropriate clinical setting. 2. Otherwise, no acute findings. 3. Mild infrarenal abdominal aortic aneurysm, mildly increased in size since 2021, now measuring 2.7 x 2.6 cm (previously 2.4 x 2.5 cm). 4. 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 5. 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 6. Nonspecific bilateral basilar peripheral reticulation and bronchiolectasis, suggestive of underlying interstitial lung disease. Findings appear grossly unchanged since 2021.
[2024-10-21 15:59] LABS: INR 0.99 (0.8-1.2)
[2024-10-21 16:00] LABS: Partial Thromboplastin Time 27.3 SECONDS (23.9-36.7)
[2024-10-21 16:04] LABS: Creatine Phosphokinase 49 U/L (26-192); Lactic Sepsis W/Reflex 2.3 mmol/L (0.5-2.2)
[2024-10-21 16:05] LABS: Alanine Aminotransferase 12 U/L (0-33); Albumin Level 3.7 g/dL (3.5-5.2); Alkaline Phosphatase 144 U/L (35-105); Blood Urea Nitrogen 16 mg/dL (8-23); Calcium 8.8 mg/dL (8.5-10.5); Carbon Dioxide 23 mmol/L (22-29); Chloride 109 mmol/L (98-107); Glucose 108 mg/dL (65-115); Osmolality Calculated 296 mOsm/kg (285-295); Sodium 142 mmol/L (136-145); Total Bilirubin 0.4 mg/dL (0.15-1.2); Total Protein 6.7 g/dL (6.6-8.7)
[2024-10-21 16:09] LABS: Anion Gap 14.3 (5-19); Aspartate Amino Transferase 17 U/L (0-32); Potassium 4.3 mmol/L (3.5-5.1)
[2024-10-21] MEDS: iohexol 350 mg/mL 500 mL Btl (per mL) IV (16:29)
--- NOTE | 2024-10-21 16:36 | ECG_ITS ---
[facility] [place] [facility] Date: 2024-10-21 Pat Name: Sil Diaz Department: Room: Gender: Female Rn Hematology: : 1940 Requested By: Ricky Smith Order Number: [id number] Terry MD: Bernard Wakefield M.D. Measurements Intervals [place] Rate: 74 P: 19 ND: 137 QRS: 52 QRSD: 109 T: 67 QT: 413 QTc: 459 Interpretive Statements SINUS RHYTHM WITH SINUS ARRHYTHMIA Compared to ECG 07/01/2023 06:51:37 Sinus bradycardia no longer present Electronically Signed On 10-22-2024 10:21:39 JUNIOR GRAPHIC DESIGNER by Bernard Wakefield M.D. [id number]
[2024-10-21] MEDS: cefTRIAXone 1,000 mg SDV 1000 MG IVP (16:55)
[2024-10-21 17:00] LABS: Bilirubin Urine Negative (Negative); Blood Urine Non-haemolysed trace (Negative); Glucose Urine UA Negative (Normal); Ketones Urine Negative (Negative); Leukocyte Esterase Urine Trace (Negative); Nitrate Urine Positive (Negative); Protein Urine 1+ (Negative); Urine Appearance Clear (CLEAR); Urine Color Dark Yellow (Yellow); pH Urine 5.5 (5-7)
[2024-10-21 17:03] LABS: Add Urine Microscopic? YES; Bacteria Urine 4+ /hpf; Hyaline Casts Urine 17.77 /lpf; RBC Urine 0-2 /hpf (0-2); Squamous Epithelial Cell Urine 0-5 /hpf (0-5)
[2024-10-21 17:07] LABS: Amphetamines Screen Urine Negative (Negative); Barbiturates Screen Urine Negative (Negative); Benzodiazepines Screen Urine Negative (Negative); Cocaine Screen Urine Negative (Negative); Opiate Screen Urine Negative (Negative); PCP Screen Urine Negative (Negative); THC Screen Urine Negative (Negative)
[2024-10-21 17:16] LABS: UA Slide Review UA Slide Review Perf
[2024-10-21 17:17] LABS: Add Urine Culture? Yes
--- NOTE | 2024-10-21 17:24 | XRR_ITS ---
PROCEDURE INFORMATION: Exam: XR Chest Exam date and time: 10/21/2024 5:45 PM Age: 84 years old Clinical indication: Cough and shortness of breath; Additional info: Sepsis/ams TECHNIQUE: Imaging protocol: Radiologic exam of the chest. Views: 1 view. COMPARISON: CR XR chest 1V portable [id number] 07/19/2022 6:30 PM FINDINGS: Tubes, catheters and devices: Left apical nodular opacities, the superior of which is new since 2021 and the inferior of which appears increased in size since 2021 and is partially obscured by an overlying EKG electrodes/lead. Lungs: Bilateral peripheral areas of reticulation and fibrotic changes, suspicious for underlying interstitial lung fibrosis. Pleural spaces: No significant pleural effusion. No pneumothorax. Heart/Mediastinum: Aortic calcifications. Bones/joints: There are bilateral acromioclavicular and glenohumeral joint degenerative changes. XR/XR chest 1V portable [id number] IMPRESSION: 1. Left apical nodular opacities, the superior of which is new since 2021 and the inferior of which appears increased in size since 2021 and is partially obscured by an overlying EKG electrodes/lead. The superior lesion may represent pneumonia in the appropriate clinical setting, although given persistence of the inferior lesion, these may represent discrete pulmonary nodules. Consider further characterization with chest CT. 2. Bilateral peripheral areas of reticulation and fibrotic changes, suspicious for underlying interstitial lung fibrosis.
[2024-10-21 17:30] LABS: Reflex Lactate Order REFLEX LACTIC ORDERD
--- NOTE | 2024-10-21 18:07 | P.HP_ITS ---
Providers/Chief Complaint 2 Primary Care Provider: Rios Anaya DO Chief Complaint: stroke like symptoms History of Present Illness Pleasant 84-year-old lady with history of CVA, HTN, GERD, chronic back pain, other medical problems who lives with her family, was found down on the floor after the family had left for short time, was acting confused, having difficulty speaking, was brought to ER initially with concern for CVA, assessed with stroke code, CT head obtained and unremarkable, not found to have any new focal deficits. She is having chills, and ER is noted hypotensive, blood pressure as low as 79/56, with significant leukocytosis 18.78, afebrile but temp mildly low 97.4, states normally does not run a fever, but has been having rigors. Found to have abnormal UA with positive nitrate, 11-20 WBC. Has been having some recurrent nausea last several weeks, although not vomiting. No diarrhea. Chest x-ray with left apical nodule opacities, superior new since 2021, inferior increased in size since 2021, partial obscured by overlying EKG electrode. Superior lesion possibly presenting pneumonia versus possible pulmonary nodules given lower nodule. Consider CT. Bilateral peripheral areas of reticulation and fibrotic changes suspicious for underlying residual lung fibrosis. CT abdomen pelvis with diffuse bladder wall thickening suggestive of cystitis. Mild infrarenal abdominal aortic aneurysm mildly increased in size since 2021, now measuring 2.7 x 2.6 cm (previously 2.4 x 2.5 cm). Stable ascending aortic aneurysm up to 2.9 x 3.5 cm. Moderate stenosis of proximal spiramycin circumflex artery ostium, grossly unchanged. Nonspecific bilateral basilar peripheral reticulation and bronchiectasis suggestive of underlying interstitial lung disease. Lactic acid noted 2.3. Blood cultures collected. She received ceftriaxone. Review of Systems 2 Const: Reports: chills; Denies: fever(s), body aches or malaise ENMT: Denies: throat pain Card: Denies: chest pain, edema, pre-syncope or dyspnea on exertion Resp: Denies: dyspnea, productive cough, change in phlegm color or hemoptysis GI: Reports: nausea; Denies: abdominal pain, vomiting, diarrhea, constipation, hematochezia or melena : Denies: flank pain, urinary frequency or hematuria Musc: Denies: back pain, joint swelling or joint redness Skin/Breast: Denies: rash Neuro: Reports: confusion; Denies: headache(s) Medications/Allergies Home Medications Medication Instructions Recorded Confirmed Last Taken Type fluticasone propionate 115 2 puff inhalation BID 07/10/22 08/26/23 07/18/22 History mcg-salmeterol 21 mcg/actuation HFA inhaler (Advair HFA) acetaminophen 500 mg tablet 500 mg PO Q6H PRN Pain 07/19/22 09/06/24 Unknown History mupirocin 2 % topical ointment topical 08/19/22 08/26/23 Unknown History citalopram 40 mg tablet 40 mg PO DAILY #90 tabs 11/04/22 08/26/23 06/30/23 Rx clotrimazole 1 % topical cream 1 applic topical BID 2 weeks #45 06/04/23 08/26/23 Unknown Rx grams cephalexin 500 mg capsule 500 mg PO TID 10 days #30 caps 07/15/23 08/26/23 Unknown Rx diphenhydramine HCl 25 mg capsule 25 mg PO TID PRN allergy symptoms 07/15/23 08/26/23 Unknown Rx #21 caps atorvastatin 20 mg tablet 20 mg PO DAILY #90 tabs 12/03/23 Unknown Rx clopidogrel 75 mg tablet (Plavix) 75 mg PO DAILY #90 tabs 12/17/23 Unknown Rx meloxicam 15 mg tablet See Rx Instructions .Route 12/17/23 Unknown Rx .COMPLEX #90 tabs pantoprazole 40 mg tablet,delayed 40 mg PO DAILY #90 tabs 12/17/23 Unknown Rx release tramadol 50 mg tablet 50 mg PO TID PRN pain #60 tabs 02/09/24 Unknown Rx amlodipine 5 mg-valsartan 160 mg 1 tab PO DAILY bp #90 tabs 04/26/24 Unknown Rx tablet albuterol sulfate 90 mcg/actuation 2 puff inhalation QID wheezing 09/06/24 09/06/24 Unknown Rx aerosol inhaler #8.5 grams doxycycline hyclate 100 mg capsule 100 mg PO BID lung infection #20 09/06/24 09/06/24 Unknown Rx caps prednisone 10 mg tablet See Rx Instructions PO DAILY lung 09/06/24 09/06/24 Unknown Rx inflammation #15 tabs Allergies Allergy/AdvReac Type Severity Reaction Status Date / Time chlorhexidine Allergy blisters Verified 09/06/24 13:58 [From ChloraPrep Clear] isopropyl alcohol Allergy blisters Verified 09/06/24 13:58 [From ChloraPrep Clear] Sulfa (Sulfonamide Allergy RASH Verified 09/06/24 13:58 Antibiotics) PFSH Acute 2 PFSH: Medical History (Updated 10/21/24 @ 18:22 by José Miguel Yepez MD) Interstitial lung disease Aortic aneurysm Mesenteric artery stenosis Heart murmur Sepsis Acute respiratory failure with hypoxia Urinary tract infection CAP (community acquired pneumonia) GERD (gastroesophageal reflux disease) Cat bite CVA (cerebral vascular accident) Dyslipidemia HTN (hypertension) Surgical History History of cholecystectomy H/O lumbar discectomy Family History Other Family history non-contributory Social History Smoking and tobacco/nicotine status: former use of tobacco/nicotine Alcohol intake: never Substance/Drug Use: never Housing: House Vitals/I&O/Wt Last Vital Signs Temp 97.4 F L 10/21/24 15:30 Pulse 81 10/21/24 17:50 Resp 16 10/21/24 17:50 BP 96/55 10/21/24 17:50 Pulse Ox 97 10/21/24 17:50 O2 Del Method Nasal Cannula 10/21/24 17:50 O2 Flow Rate 2 10/21/24 17:50 Weight last 48 hrs Weight 55.338 kg Physical Exam 2 Narrative: Accompanied by her daughter Const: COMMON NORMALS: patient oriented x3 and alert GENERAL APPEARANCE: c ooperative and frail appearing ORIENTATION/CONSCIOUSNESS: Yes awake HENMT: COMMON NORMALS: oropharynx normal Neck/C-Spine: COMMON NORMALS: no JVD Resp: COMMON NORMALS: normal respiratory effort and clear to auscultation bilaterally AUSCULTATION: clear to auscultation bilaterally Cardio: COMMON NORMALS: no JVD, regular rhythm, S1 normal heart sound present, S2 normal heart sound present and No murmurs present (Cardio) RHYTHM: regular rhythm HEART SOUNDS: S1 normal heart sound present and S2 normal heart sound present GI: COMMON NORMALS: Normal to inspection, nondistended, normoactive bowel sounds present, Soft to palpation and non-tender PALPATION: Yes Soft to palpation Extremity: COMMON NORMALS: no joint enlargement and no pedal edema Neuro: COMMON NORMALS: patient oriented x3 and moves all extremities S ENSORIUM/ORIENTATION: Yes alert OTHER: She is awake and alert, following directions, no difficulty tracking. No facial droop. I do not detect dysarthria, minimal if any dysarthria appears related to rigors. Moving all extremities. Power symmetrical. Skin: COMMON NORMALS: no rashes or lesions noted GENERAL SKIN EXAM: no rashes or lesions noted Sepsis: Is patient septic: Yes Focused sepsis exam performed: Yes F ocused sepsis exam: She is awake and alert, having rigors, good capillary refill. Not cyanotic or mottled. Date exam was performed: 10/21/24 Time exam was performed: 17:50 Data 10/21/24 15:05 10/21/24 15:05 Micro: Microbiology 10/21/24 15:56 Blood Culture - Preliminary Blood SPECIMEN COLLECTED 10/21/24 15:54 Blood Culture - Preliminary Blood SPECIMEN COLLECTED A&P Assessment and plan (1) Urinary tract infection: Most history obtained from her daughter due to malaise, rigors. Complicated UTI with acute encephalopathy, hypotension, on review of CBC leukocytosis 18.78. With lactic acidosis 2.3. SIRS. Possible sepsis with leukocytosis, hypothermia, hypotension, lactic acidosis. Rigors. Temp 97.4. Complicated by acute metabolic encephalopathy. Reviewed CMP, UA, UDS, chest x-ray, CT abdomen pelvis, head CT, EKG, ER note, discussed with ER provider. Discussed with her and her daughter at bedside. Reviewed prior urinary cultures, noted history of resistant organism UTI including ESBL E. coli on recent cultures. Blood culture, urine cultures collected, follow-up. Received ceftriaxone, however, with suspected complicated UTI with MDRO, will provide coverage with meropenem currently. Monitor for risk of seizure. Reassess renal function. At risk of TIFFANIE with hypotension and takes meloxicam at home. Discussed with her and family to discontinue meloxicam. With hypotension, prior steroid use, possible adrenal insufficiency adrenal crisis, will give stress dose steroids with hydrocortisone. Monitor for risk of hyperglycemia, hypertension, encephalopathy. Gastritis. PPI prophylaxis. DVT prophylaxis. Qualifiers: Hematuria presence: with hematuria Urinary tract infection type: site unspecified (2) Acute encephalopathy: Was evaluated in ER with initial concern for CVA due to decreased responsiveness, trouble with speech found on the floor after family's brief absence at home. Not found to have CVA, CT head unremarkable, not hypoglycemic, suspected acute metabolic encephalopathy secondary to possible sepsis, complicated UTI as above. Would not continue meloxicam due to increased risk of CVA. Discussed with her and family. Additionally possible adrenal sufficiency with interstitial lung disease, prior prednisone use. Will give stress dose steroids with hydrocortisone. (3) SIRS (systemic inflammatory response syndrome): With possible sepsis as above with high leukocytosis 18.78, hypothermia 97.4, hypotension, lactic acidosis, acute encephalopathy. (4) Lactic acidosis: Received fluid resuscitation 30 cc/kg. Blood pressure still soft 96/55, further admission to intensive care unit, Levophed per protocol for hemodynamic support. (5) Mesenteric artery stenosis: Noted moderate mesenteric artery stenosis on CT abdomen pelvis, discussed with her and her daughter. At risk of bowel ischemia as a complication from sepsis, shock. Admission to ICU for hemodynamic support, received 30 cc/kg bolus. Add Levophed per protocol. Maintain MAP 65 or above. (6) Lung nodules: Noted left apical superior and inferior pulmonary nodules, less likely pneumonia, will benefit from follow-up CT. (7) Aortic aneurysm: With noted mild enlargement of ascending aortic aneurysm, unchanged descending aortic aneurysm, will benefit from follow-up. Monitor blood pressures. Continue Plavix, statin. (8) Interstitial lung disease: Appears suspected component of interstitial lung disease based on imaging. Monitor oxygenation. Breathing treatments. Will benefit from follow-up. Plan Chronic back pain: On tramadol, but is also on citalopram, Plavix, hold tramadol for now with increased risk of bleeding. As well as risk of contributing to encephalopathy. Hx CVA, continue Plavix, statin. Would discontinue meloxicam. HTN, monitor blood pressures, currently hypotensive, hold amlodipine. GERD, PPI other medical problems Attestations 2 Medical Necessity Statement*: Admission of over 2 midnights anticipated for assessment management of complicated UTI, possible sepsis, in an elderly lady with multiple comorbidities as above. Coding Level of Care Code Critical Care >/= 30 minutes Critical care time (in minutes): 35 The high probability of a clinically significant, sudden or life threatening deterioration, as referenced in this documentation, required my full and direct attention, intervention and personal management. The critical care time shown is in addition to time spent performing any reported separately billable procedures and includes the following: [x] Data and vital sign review and interpretation [x ] Patient assessment, examination and intervention [x] Medication orders and management [x] Patient/Family updates as able [x] Care Coordination and Documentation. Diagnoses Urinary tract infection N39.0 Hematuria presence: with hematuria Urinary tract infection type: site unspecified Acute encephalopathy G93.40 SIRS (systemic inflammatory response syndrome) R65.10 Lactic acidosis E87.20 Mesenteric artery stenosis K55.1 Lung nodules R91.8 Aortic aneurysm I71.9 Interstitial lung disease J84.9
[2024-10-21] MEDS: hydrocortisone 100 mg/2 mL SDV IVP ×2 (18:32→23:41)
[2024-10-21] MEDS: meropenem 1,000 mg SDV 1000 MG IVP (18:32)
[2024-10-21 18:39] LABS: Lactic Acid level (Lactate) 2.2 mmol/L (0.5-2.2)
[2024-10-21] MEDS: pantoprazole DR 40 mg Tablet PO (21:29)
[2024-10-21] MEDS: enoxaparin 40 mg/0.4 mL Syringe SUBCUT (21:29)
[2024-10-21] MEDS: sodium chloride 0.9% 1,000 ML 100 ML IV (21:30)
[2024-10-22] VITALS (63 sets, daily range): BP systolic 83–147; BP diastolic 38–88; PULSE 63–97; RESP 4–22; TEMP 36.7–37.1; O2SAT 90–100; BMI 26.2
[2024-10-22 05:15] LABS: Basophils % 0.3 %; Eosinophils # 0.1 10^3/uL (0.0-0.8); Eosinophils % 1.8 %; Hematocrit 34.7 % (36-47); Lymphocytes # 3.2 10^3/uL (0.8-4.8); Lymphocytes % 39.7 %; Mean Corpuscular HGB Conc 29.7 g/dL (30-55); Mean Corpuscular Hemoglobin 26.7 pg (27-33); Mean Corpuscular Volume 89.9 fl (85-98); Mean Platelet Volume 9.7 fL (7.4-10.4); Monocytes # 0.1 10^3/uL (0.2-0.9); Monocytes % 1.6 %; Neutrophils # 4.46 10^3/uL (1.8-7.7); Neutrophils % 56.1 %; Nucleated Red Blood Cells % 0 %; Platelet Count 203 10^3/cmm (157-399); Red Blood Count 3.86 10^6/uL (3.85-5.65); Red Cell Distribution Width 16.1 % (12.1-15.1); White Blood Count 7.94 10^3/uL (3.29-11.43)
[2024-10-22 05:46] LABS: Alanine Aminotransferase 12 U/L (0-33); Albumin Level 3.1 g/dL (3.5-5.2); Alkaline Phosphatase 129 U/L (35-105); Aspartate Amino Transferase 12 U/L (0-32); Blood Urea Nitrogen 11 mg/dL (8-23); Calcium 8.2 mg/dL (8.5-10.5); Carbon Dioxide 21 mmol/L (22-29); Chloride 115 mmol/L (98-107); Creatinine Clr Calc Pharmacy 47.9453; Globulin 2.5 g/dL (1.3-4.6); Glucose 121 mg/dL (65-115); Osmolality Calculated 301 mOsm/kg (285-295); Sodium 145 mmol/L (136-145); Total Bilirubin 0.2 mg/dL (0.15-1.2); Total Protein 5.6 g/dL (6.6-8.7)
[2024-10-22] MEDS: hydrocortisone 100 mg/2 mL SDV IVP ×2 (06:54→12:44)
[2024-10-22] MEDS: meropenem 1,000 mg SDV 1000 MG IVP ×2 (06:55→18:44)
[2024-10-22] MEDS: sodium chloride 0.9% 1,000 ML 100 ML IV (07:45)
[2024-10-22] MEDS: ipratropium-albuterol 3 mL Neb INHALATION ×3 (08:02→21:43)
[2024-10-22] MEDS: clopidogrel 75 mg Tablet PO (09:08)
[2024-10-22] MEDS: atorvastatin 40 mg Tablet 20 MG PO (09:08)
[2024-10-22] MEDS: citalopram 20 mg Tablet 40 MG PO (09:08)
[2024-10-22] MEDS: pantoprazole DR 40 mg Tablet PO (09:08)
--- NOTE | 2024-10-22 09:22 | PC.PHAR ---
Verified all medications with Arturo March. Pt has new medication on her list for Lisinopril 30mg daily 09/17/24 90ds
--- NOTE | 2024-10-22 13:16 | P.PN_ITS ---
Subjective 2 Subjective: She is feeling somewhat better today. She had some liquid for breakfast including broth. No abdominal pain. No vomiting. Vitals/I&O/Wt Last Vital Signs Temp 98.8 F 10/22/24 09:45 Pulse 75 10/22/24 13:00 Resp 13 10/22/24 13:00 BP 121/52 10/22/24 13:00 Pulse Ox 98 10/22/24 13:00 O2 Del Method Nasal Cannula 10/22/24 11:30 O2 Flow Rate 1 10/22/24 10:45 10/21/24 10/22/24 10/22/24 22:59 06:59 14:59 Intake Total 2039 / 2039 1480 / 1480 Output Total 700 / 700 Balance 2039 / 2039 780 / 780 Weight last 48 hrs Weight 59 kg Weight 59 kg Weight 57 kg Weight 55.338 kg Physical Exam 2 Const: COMMON NORMALS: patient oriented x3 and alert GENERAL APPEARANCE: c ooperative and frail appearing ORIENTATION/CONSCIOUSNESS: Yes awake HENMT: COMMON NORMALS: oropharynx normal Neck/C-Spine: COMMON NORMALS: no JVD Resp: COMMON NORMALS: normal respiratory effort and clear to auscultation bilaterally AUSCULTATION: clear to auscultation bilaterally Cardio: COMMON NORMALS: no JVD, regular rhythm, S1 normal heart sound present, S2 normal heart sound present and No murmurs present (Cardio) RHYTHM: regular rhythm HEART SOUNDS: S1 normal heart sound present and S2 normal heart sound present GI: COMMON NORMALS: Normal to inspection, nondistended, normoactive bowel sounds present, Soft to palpation and non-tender PALPATION: Yes Soft to palpation Extremity: COMMON NORMALS: no joint enlargement and no pedal edema Neuro: COMMON NORMALS: patient oriented x3 and moves all extremities S ENSORIUM/ORIENTATION: Yes alert OTHER: She is awake and alert, following directions, no difficulty tracking. No facial droop. I do not detect dysarthria, minimal if any dysarthria appears related to rigors. Moving all extremities. Power symmetrical. Skin: COMMON NORMALS: no rashes or lesions noted GENERAL SKIN EXAM: no rashes or lesions noted Urinary Catheter Management: Martinez: Cath Placed During This Visit: yes Reason for Continuing Indwelling Catheter: Accurate Measurement of Urinary Output in Critically Ill Patients Urinary Catheter Date of Insertion: 10/21/24 Urinary Catheter Time of Insertion: 18:45 Data 10/22/24 04:36 10/22/24 04:36 Micro: Microbiology 10/21/24 16:48 Urine Culture - Preliminary Urine,Clean Catch Gram Negative Rods 10/21/24 15:56 Blood Culture - Preliminary Blood SPECIMEN COLLECTED 10/21/24 15:54 Blood Culture - Preliminary Blood SPECIMEN COLLECTED A&P Assessment and plan (1) Urinary tract infection: Possible sepsis with improvement, hypothermia improved, hypotension improved, anion gap improved and lactic acid improved. Reviewed vitals, CBC, INR, CMP, urine culture, blood culture. Urine culture with more than 100,000 gram- negative rods. Blood culture so far negative follow-up. With history of resistant infection in the past continue broad-spectrum coverage with meropenem, monitor for risk of seizure. Reassess chemistry, renal function. With suspected component of adrenal sufficiency, improved, de-escalate hydrocortisone, decrease to 50 mg twice daily Advance diet to mechanical soft. Stop IV fluid. DC norepinephrine. Transfer out of ICU. With hypotension, prior steroid use, possible adrenal insufficiency adrenal crisis, will give stress dose steroids with hydrocortisone. Monitor for risk of hyperglycemia, hypertension, encephalopathy. Gastritis. PPI prophylaxis. DVT prophylaxis. (2) Acute encephalopathy: Resolved. Continue to treat underlying problem as above. Reorient. Transfer out of ICU. Was evaluated in ER with initial concern for CVA due to decreased responsiveness, trouble with speech found on the floor after family's brief absence at home. Not found to have CVA, CT head unremarkable, not hypoglycemic, suspected acute metabolic encephalopathy secondary to possible sepsis, complicated UTI as above. Would not continue meloxicam due to increased risk of CVA. Discussed with her and family. Additionally possible adrenal sufficiency with interstitial lung disease, prior prednisone use. Will give stress dose steroids with hydrocortisone. (3) SIRS (systemic inflammatory response syndrome): Possible sepsis, with improvement, resolved leukocytosis, hypothermia resolved, resolved lactic acidosis, improved hypotension. Transfer out of ICU. Continue treatment of complicated UTI. With possible sepsis as above with high leukocytosis 18.78, hypothermia 97.4, hypotension, lactic acidosis, acute encephalopathy. (4) Lactic acidosis: Resolved. DC IV fluid. Advance diet. Received fluid resuscitation 30 cc/kg. Blood pressure still soft 96/55, further admission to intensive care unit, Levophed per protocol for hemodynamic support. 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 Tolerated clear liquids. Blood pressures have improved. Advance diet. Transfer out of ICU. Stop IV fluid. Noted moderate mesenteric artery stenosis on CT abdomen pelvis, discussed with her and her daughter. At risk of bowel ischemia as a complication from sepsis, shock. Admission to ICU for hemodynamic support, received 30 cc/kg bolus. Add Levophed per protocol. Maintain MAP 65 or above. (6) Lung nodules: Noted left apical superior and inferior pulmonary nodules, less likely pneumonia, will benefit from follow-up CT. (7) Aortic aneurysm: With noted mild enlargement of ascending aortic aneurysm, unchanged descending aortic aneurysm, will benefit from follow-up. Monitor blood pressures. Continue Plavix, statin. (8) Interstitial lung disease: De-escalate stress dose steroid. Appears suspected component of interstitial lung disease based on imaging. Monitor oxygenation. Breathing treatments. Will benefit from follow-up. Plan Chronic back pain: On tramadol, but is also on citalopram, Plavix, hold tramadol for now with increased risk of bleeding. As well as risk of contributing to encephalopathy. Hx CVA, continue Plavix, statin. Would discontinue meloxicam. HTN, monitor blood pressures, currently hypotensive, hold amlodipine. GERD, PPI other medical problems Attestations 2 Medical Necessity Statement*: Continue admission for assessment of management of complicated UTI, improving possible sepsis. and High MDM includes described risk of complication, morbidity or mortality of management as documented Diagnoses Urinary tract infection N39.0 Acute encephalopathy G93.40 SIRS (systemic inflammatory response syndrome) R65.10 Lactic acidosis E87.20 Mesenteric artery stenosis K55.1 Lung nodules R91.8 Aortic aneurysm I71.9 Interstitial lung disease J84.9
[2024-10-22] MEDS: acetaminophen 325 mg Tablet 650 MG PO (13:47)
--- NOTE | 2024-10-22 16:53 | PC.NURSE ---
Report called to Sirisha on medical surgical floor, patient to transfer to room 259-2. Daughter Amelia notified via telephone.
[2024-10-22] MEDS: hydrocortisone 100 mg/2 mL SDV 50 MG IVP (18:44)
[2024-10-22] MEDS: enoxaparin 40 mg/0.4 mL Syringe SUBCUT (20:47)
[2024-10-23] VITALS (13 sets, daily range): BP systolic 97–146; BP diastolic 57–67; PULSE 78–97; RESP 16–20; TEMP 36.5–36.9; O2SAT 90–94
[2024-10-23] MEDS: ipratropium-albuterol 3 mL Neb INHALATION ×4 (02:59→21:59)
[2024-10-23 04:10] LABS: Basophils % 0.2 %; Hematocrit 33.7 % (36-47); Lymphocytes % 39.5 %; Mean Corpuscular HGB Conc 28.5 g/dL (30-55); Mean Corpuscular Hemoglobin 26.4 pg (27-33); Mean Corpuscular Volume 92.8 fl (85-98); Mean Platelet Volume 10.5 fL (7.4-10.4); Monocytes # 0.6 10^3/uL (0.2-0.9); Neutrophils # 6.84 10^3/uL (1.8-7.7); Neutrophils % 54.7 %; Nucleated Red Blood Cells % 0 %; Platelet Count 210 10^3/cmm (157-399); Red Blood Count 3.63 10^6/uL (3.85-5.65); White Blood Count 12.52 10^3/uL (3.29-11.43)
[2024-10-23 04:33] LABS: Alanine Aminotransferase 11 U/L (0-33); Albumin Level 3.1 g/dL (3.5-5.2); Alkaline Phosphatase 121 U/L (35-105); Aspartate Amino Transferase 11 U/L (0-32); Blood Urea Nitrogen 20 mg/dL (8-23); Calcium 8.2 mg/dL (8.5-10.5); Carbon Dioxide 19 mmol/L (22-29); Chloride 113 mmol/L (98-107); Creatinine Clr Calc Pharmacy 49.6276; Globulin 2.4 g/dL (1.3-4.6); Glucose 112 mg/dL (65-115); Osmolality Calculated 299 mOsm/kg (285-295); Sodium 143 mmol/L (136-145); Total Bilirubin 0.2 mg/dL (0.15-1.2); Total Protein 5.5 g/dL (6.6-8.7)
[2024-10-23 04:36] LABS: Anion Gap 14.9 (5-19); Potassium 3.9 mmol/L (3.5-5.1)
[2024-10-23] MEDS: meropenem 1,000 mg SDV 1000 MG IVP ×2 (06:27→18:12)
[2024-10-23] MEDS: hydrocortisone 100 mg/2 mL SDV 50 MG IVP (08:44)
[2024-10-23] MEDS: atorvastatin 40 mg Tablet 20 MG PO (08:45)
[2024-10-23] MEDS: citalopram 20 mg Tablet 40 MG PO (08:46)
[2024-10-23] MEDS: clopidogrel 75 mg Tablet PO (08:46)
[2024-10-23] MEDS: pantoprazole DR 40 mg Tablet PO (08:46)
--- NOTE | 2024-10-23 15:01 | P.PN_ITS ---
Subjective 2 Subjective: Still been having some cough, with difficulty bringing up sputum. Vitals/I&O/Wt Last Vital Signs Temp 97.7 F 10/23/24 12:00 Pulse 86 10/23/24 14:26 Resp 18 10/23/24 14:26 BP 146/67 10/23/24 12:00 Pulse Ox 93 10/23/24 14:26 O2 Del Method Room Air 10/23/24 14:26 O2 Flow Rate 1 10/22/24 13:29 10/23/24 10/23/24 10/23/24 06:59 14:59 22:59 Intake Total 600 / 600 Output Total 250 / 950 Balance -250 / 2236.667 600 / 600 Weight last 48 hrs Weight 60.951 kg Weight 59 kg Weight 59 kg Weight 57 kg Weight 55.338 kg Physical Exam 2 Const: COMMON NORMALS: patient oriented x3 and alert GENERAL APPEARANCE: c ooperative and frail appearing ORIENTATION/CONSCIOUSNESS: Yes awake HENMT: COMMON NORMALS: oropharynx normal Neck/C-Spine: COMMON NORMALS: no JVD Resp: COMMON NORMALS: normal respiratory effort AUSCULTATION: rhonchi Cardio: COMMON NORMALS: no JVD, regular rhythm, S1 normal heart sound present, S2 normal heart sound present and No murmurs present (Cardio) RHYTHM: regular rhythm HEART SOUNDS: S1 normal heart sound present and S2 normal heart sound present GI: COMMON NORMALS: Normal to inspection, nondistended, normoactive bowel sounds present, Soft to palpation and non-tender PALPATION: Yes Soft to palpation Extremity: COMMON NORMALS: no joint enlargement and no pedal edema Neuro: COMMON NORMALS: patient oriented x3 and moves all extremities S ENSORIUM/ORIENTATION: Yes alert Skin: COMMON NORMALS: no rashes or lesions noted GENERAL SKIN EXAM: no rashes or lesions noted Urinary Catheter Management: Martinez: Cath Placed During This Visit: yes Reason for Continuing Indwelling Catheter: Other Urinary Catheter Date of Insertion: 10/21/24 Urinary Catheter Time of Insertion: 18:45 Data 10/23/24 03:37 10/23/24 03:37 Micro: Microbiology 10/21/24 16:48 Urine Culture - Final Urine,Clean Catch Escherichia coli 10/21/24 15:56 Blood Culture - Preliminary Blood NEGATIVE TO DATE 10/21/24 15:54 Blood Culture - Preliminary Blood NEGATIVE TO DATE A&P Assessment and plan (1) Urinary tract infection: Reviewed vitals, CBC, CMP, urine culture, blood culture. WBC noted worsened up to 12.52. Continue meropenem, reassess for possible resistant organism. On subsequent review of urine culture, gram-negative rods noted identified as E. coli on urine culture. Blood culture remains negative. Leukocytosis possibly secondary to corticosteroid, de-escalate stress dose steroid. Will decrease dose to 25 mg twice daily. Tolerating mechanical soft diet. With hypotension, prior steroid use, possible adrenal insufficiency adrenal crisis, will give stress dose steroids with hydrocortisone. Monitor for risk of hyperglycemia, hypertension, encephalopathy. Gastritis. PPI prophylaxis. DVT prophylaxis. (2) Acute encephalopathy: Resolved. Continue to treat underlying problem as above. Reorient. Transfer out of ICU. Was evaluated in ER with initial concern for CVA due to decreased responsiveness, trouble with speech found on the floor after family's brief absence at home. Not found to have CVA, CT head unremarkable, not hypoglycemic, suspected acute metabolic encephalopathy secondary to possible sepsis, complicated UTI as above. Would not continue meloxicam due to increased risk of CVA. Discussed with her and family. Additionally possible adrenal sufficiency with interstitial lung disease, prior prednisone use. Will give stress dose steroids with hydrocortisone. (3) SIRS (systemic inflammatory response syndrome): Worsening leukocytosis, continue meropenem. Assess for any resistant organism. Blood culture remaining negative. Urine culture on subsequent review with E. coli resistant to Bactrim, ampicillin, intermediate to Unasyn. Possible corticosteroid induced demargination. Reduce hydrocortisone dose to 25 mg twice daily. Continue to taper off stress dose steroids. Possible sepsis, with improvement, resolved leukocytosis, hypothermia resolved, resolved lactic acidosis, improved hypotension. Transfer out of ICU. Continue treatment of complicated UTI. With possible sepsis as above with high leukocytosis 18.78, hypothermia 97.4, hypotension, lactic acidosis, acute encephalopathy. (4) Lactic acidosis: Resolved. DC IV fluid. Advance diet. Received fluid resuscitation 30 cc/kg. Blood pressure still soft 96/55, further admission to intensive care unit, Levophed per protocol for hemodynamic support. 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 Tolerated clear liquids. Blood pressures have improved. Advance diet. Transfer out of ICU. Stop IV fluid. Noted moderate mesenteric artery stenosis on CT abdomen pelvis, discussed with her and her daughter. At risk of bowel ischemia as a complication from sepsis, shock. Admission to ICU for hemodynamic support, received 30 cc/kg bolus. Add Levophed per protocol. Maintain MAP 65 or above. (6) Lung nodules: Noted left apical superior and inferior pulmonary nodules, less likely pneumonia, will benefit from follow-up CT. (7) Aortic aneurysm: With noted mild enlargement of ascending aortic aneurysm, unchanged descending aortic aneurysm, will benefit from follow-up. Monitor blood pressures. Continue Plavix, statin. (8) Interstitial lung disease: De-escalate stress dose steroid. Appears suspected component of interstitial lung disease based on imaging. Monitor oxygenation. Breathing treatments. Will benefit from follow-up. Plan Bronchitis: Noted mild to moderate bronchitis with cough, phlegm production. Some nodular opacities noted on chest x-ray, as well as some areas of reticulation and fibrotic changes suspicious for underlying transitional lung fibrosis. Continue mechanical soft diet, aspiration precautions. Will assess with MBS. Encouraged flutter valve. Will check respiratory viral studies. Chronic back pain: On tramadol, but is also on citalopram, Plavix, hold tramadol for now with increased risk of bleeding. As well as risk of contributing to encephalopathy. Hx CVA, continue Plavix, statin. Would discontinue meloxicam. HTN, monitor blood pressures, currently hypotensive, hold amlodipine. GERD, PPI other medical problems Attestations 2 Medical Necessity Statement*: Continue admission for assessment management of urinary tract infection, de- escalation of steroid after renal insufficiency, resolved encephalopathy. and High MDM includes described risk of complication, morbidity or mortality of management as documented Diagnoses Urinary tract infection N39.0 Acute encephalopathy G93.40 SIRS (systemic inflammatory response syndrome) R65.10 Lactic acidosis E87.20 Mesenteric artery stenosis K55.1 Lung nodules R91.8 Aortic aneurysm I71.9 Interstitial lung disease J84.9
[2024-10-23 17:34] LABS: Covid PCR NEGATIVE (Negative); Influenza A NEGATIVE (Negative); Influenza B NEGATIVE (Negative); Respiratory Syncytial Virus Ce NEGATIVE (Negative)
[2024-10-23] MEDS: hydrocortisone 100 mg/2 mL SDV 25 MG IVP (18:12)
[2024-10-23] MEDS: enoxaparin 40 mg/0.4 mL Syringe SUBCUT (21:00)
[2024-10-24] VITALS (13 sets, daily range): BP systolic 131–152; BP diastolic 64–79; PULSE 71–94; RESP 15–20; TEMP 36.5–36.9; O2SAT 90–95
[2024-10-24] MEDS: ipratropium-albuterol 3 mL Neb INHALATION ×4 (03:02→20:39)
[2024-10-24 05:00] LABS: Basophils # 0.1 10^3/uL (0.0-0.1); Basophils % 0.5 %; Hematocrit 34.1 % (36-47); Lymphocytes # 6.3 10^3/uL (0.8-4.8); Lymphocytes % 46.8 %; Mean Corpuscular HGB Conc 29.9 g/dL (30-55); Mean Corpuscular Hemoglobin 26.8 pg (27-33); Mean Corpuscular Volume 89.5 fl (85-98); Mean Platelet Volume 9.8 fL (7.4-10.4); Monocytes # 0.5 10^3/uL (0.2-0.9); Monocytes % 3.7 %; Neutrophils % 47.5 %; Nucleated Red Blood Cells % 0 %; Platelet Count 249 10^3/cmm (157-399); Red Blood Count 3.81 10^6/uL (3.85-5.65); Red Cell Distribution Width 16.4 % (12.1-15.1); White Blood Count 13.47 10^3/uL (3.29-11.43)
[2024-10-24 05:15] LABS: Alanine Aminotransferase 10 U/L (0-33); Albumin Level 3.2 g/dL (3.5-5.2); Alkaline Phosphatase 112 U/L (35-105); Anion Gap 14.2 (5-19); Aspartate Amino Transferase 9 U/L (0-32); Blood Urea Nitrogen 14 mg/dL (8-23); Calcium 8.1 mg/dL (8.5-10.5); Carbon Dioxide 23 mmol/L (22-29); Chloride 106 mmol/L (98-107); Creatinine Clr Calc Pharmacy 51.7742; Globulin 2.6 g/dL (1.3-4.6); Glucose 117 mg/dL (65-115); Osmolality Calculated 292 mOsm/kg (285-295); Potassium 3.2 mmol/L (3.5-5.1); Sodium 140 mmol/L (136-145); Total Bilirubin 0.3 mg/dL (0.15-1.2); Total Protein 5.8 g/dL (6.6-8.7)
[2024-10-24 05:17] LABS: Slide Review Slide Review Perform
[2024-10-24] MEDS: meropenem 1,000 mg SDV 1000 MG IVP ×2 (05:35→19:12)
--- NOTE | 2024-10-24 09:30 | FL_ITS ---
WS: [id number] Modified barium swallow, 10/24/2024 Clinical Data: Oropharyngeal dysphagia Comparison: None. Fluoroscopy time: 2min [id number] # of spot films: 0 Findings: The patient ingested the material with decreased mastication. There is minimal oral residue. There is no aspiration and but there was minimal penetration. A small residue in the hypopharynx could be see n in the vallecula. The barium tablet moved normally from the oral cavity through the hypopharynx int o the proximal esophagus. However there was slow passage of the tablet and water swallows aided the p assage of the barium tablet into the stomach. FL/FL barium swallow modifd [id number] Impression: 1. Decreased mastication and minimal oral residue. 2. No aspiration but minimal penetration. 3. Minimal vallecular residue. 4. Decreased motility of the esophagus with slow passage of the barium tablet i nto the stomach.
[2024-10-24] MEDS: hydrocortisone 100 mg/2 mL SDV 25 MG IVP (09:36)
[2024-10-24] MEDS: clopidogrel 75 mg Tablet PO (09:37)
[2024-10-24] MEDS: atorvastatin 40 mg Tablet 20 MG PO (09:37)
[2024-10-24] MEDS: pantoprazole DR 40 mg Tablet PO (09:37)
[2024-10-24] MEDS: citalopram 20 mg Tablet 40 MG PO (09:37)
[2024-10-24 12:06] LABS: Estmated Average Glucose 111; Hemoglobin A1C 5.5 % (4.0-6.0)
[2024-10-24 12:09] LABS: Chol HDL Ratio 2.46 mg/dL (0.0-4.40); Cholesterol 133 mg/dL (0-200); HDL Cholesterol 54 mg/dL (60-100); LDL Cholesterol Calculated 65 mg/dL (50-129); Triglycerides 68 mg/dL (0-150); VLDL Cholestrol Calculation 14 mg/dL (0-30)
[2024-10-24 12:33] LABS: Iron 50 ug/dL (37-145); Percent Saturation 22.9 % (20-50); Thyroid Stimulating Hormone 0.33 uIU/mL (0.27-4.20); Total Iron Binding Capacity 218 mcg/dl; Unsaturated Iron Binding 168 ug/dL (112-347); Vitamin B12 268 pg/mL (232-1245)
[2024-10-24] MEDS: cosyntropin 0.25 mg SDV IVP (13:43)
[2024-10-24 14:27] LABS: Cosyntropin Baseline 65.81 mcg/dL
--- NOTE | 2024-10-24 14:49 | P.PN_ITS ---
Subjective 2 Subjective: Hospital course, labs appreciated. Patient today morning seen after modified barium swallow. Laying comfortably in bed on room air. States today she is feeling slightly more tired than yesterday. Denies any decrease in appetite. Denies any abdominal pain. Vitals/I&O/Wt Last Vital Signs Temp 98.4 F 10/24/24 12:03 Pulse 88 10/24/24 13:51 Resp 18 10/24/24 13:51 BP 146/79 10/24/24 12:03 Pulse Ox 95 10/24/24 13:51 O2 Del Method Room Air 10/24/24 12:03 O2 Flow Rate 1 10/22/24 13:29 10/23/24 10/24/24 10/24/24 22:59 06:59 14:59 Intake Total 720 / 1320 238 / 238 Output Total 1100 / 1100 2100 / 3200 1000 / 1000 Balance -380 / 220 -2100 / -1880 -762 / -762 Weight last 48 hrs Weight 61.552 kg Weight 60.951 kg Physical Exam 2 Narrative: Const: COMMON NORMALS: patient oriented x3 and alert GENERAL APPEARANCE: c ooperative and frail appearing ORIENTATION/CONSCIOUSNESS: Yes awake HENMT: COMMON NORMALS: oropharynx normal Neck/C-Spine: COMMON NORMALS: no JVD Resp: COMMON NORMALS: normal respiratory effort and clear to auscultation bilaterally AUSCULTATION: clear to auscultation bilaterally and rhonchi Cardio: COMMON NORMALS: no JVD, regular rhythm, S1 normal heart sound present, S2 normal heart sound present and No murmurs present (Cardio) RHYTHM: regular rhythm HEART SOUNDS: S1 normal heart sound present and S2 normal heart sound present GI: COMMON NORMALS: Normal to inspection, nondistended, normoactive bowel sounds present, Soft to palpation and non-tender PALPATION: Yes Soft to palpation Extremity: COMMON NORMALS: no joint enlargement and no pedal edema Neuro: COMMON NORMALS: patient oriented x3 and moves all extremities S ENSORIUM/ORIENTATION: Yes alert OTHER: She is awake and alert, following directions, no difficulty tracking. No facial droop. I do not detect dysarthria, minimal if any dysarthria appears related to rigors. Moving all extremities. Power symmetrical. Skin: COMMON NORMALS: no rashes or lesions noted GENERAL SKIN EXAM: no rashes or lesions noted Urinary Catheter Management: Martinez: Cath Placed During This Visit: yes Reason for Continuing Indwelling Catheter: Acute Urinary Retention or Obstruction Urinary Catheter Date of Insertion: 10/21/24 Urinary Catheter Time of Insertion: 18:45 Data 10/24/24 04:31 10/24/24 04:31 Micro: Microbiology 10/21/24 16:48 Urine Culture - Final Urine,Clean Catch Escherichia coli A&P Assessment and plan (1) Urinary tract infection: Appreciate urine cultures. Growing E. coli. History of ESBL in the past. Continue with IV meropenem to finish a 5-day course given history of ESBL in the past. Most likely will discharge on oral antibiotics as per culture sensitivities from current admission. Concern for possible adrenal insufficiency on admission. Patient already on steroids. Wean down further with hydrocortisone at 25 mg daily. Check cosyntropin stimulation test. Out of bed to chair. Physical therapy. Blood pressures improved. Hold off on antihypertensive for now. (2) Acute encephalopathy: Resolved. Most likely metabolic encephalopathy in setting of UTI on admission. Was evaluated in ER with initial concern for CVA due to decreased responsiveness, trouble with speech found on the floor after family's brief absence at home. Not found to have CVA, CT head unremarkable, not hypoglycemic, suspected acute metabolic encephalopathy secondary to possible sepsis, complicated UTI as above. Would not continue meloxicam due to increased risk of CVA. Discussed with her and family. Physical therapy evaluation. (3) SIRS (systemic inflammatory response syndrome): (4) Lactic acidosis: Resolved. DC IV fluid. Advance diet. (5) Mesenteric artery stenosis: Past history. Currently stable. (6) Lung nodules: Noted left apical superior and inferior pulmonary nodules, less likely pneumonia, will benefit from follow-up CT. (7) Aortic aneurysm: With noted mild enlargement of ascending aortic aneurysm, unchanged descending aortic aneurysm, will benefit from follow-up. Monitor blood pressures. Continue Plavix, statin. (8) Interstitial lung disease: De-escalate stress dose steroid. Appears suspected component of interstitial lung disease based on imaging. Monitor oxygenation. Breathing treatments. Will benefit from follow-up. Plan Bronchitis: Noted mild to moderate bronchitis with cough, phlegm production. Some nodular opacities noted on chest x-ray, as well as some areas of reticulation and fibrotic changes suspicious for underlying transitional lung fibrosis. Continue mechanical soft diet, aspiration precautions. Follow-up modified barium swallow results. Pulmonary toilet. Chronic back pain: On tramadol, but is also on citalopram, Plavix, hold tramadol for now with increased risk of bleeding. As well as risk of contributing to encephalopathy. Hx CVA, continue Plavix, statin. Would discontinue meloxicam. HTN, monitor blood pressures, currently hypotensive, hold amlodipine. GERD, PPI Full code Protonix for PUD prophylaxis Lovenox for DVT prophylaxis Mechanical soft diet. Attestations 2 Medical Necessity Statement*: Requires further hospitalization for management of the weakness, encephalopathy in setting of UTI in patient with history of ESBL in the past Diagnoses Urinary tract infection N39.0 Acute encephalopathy G93.40 SIRS (systemic inflammatory response syndrome) R65.10 Lactic acidosis E87.20 Mesenteric artery stenosis K55.1 Lung nodules R91.8 Aortic aneurysm I71.9 Interstitial lung disease J84.9
--- NOTE | 2024-10-24 15:23 | PC.SOCIAL ---
IMM Update pg 2 of IMM updated and reviewed w/ patient. Copy provided and copy dated, initialed and placed in chart.
[2024-10-24 15:26] LABS: Cosyntropin 1 Hour 56.96 mcg/dL
[2024-10-24] MEDS: enoxaparin 40 mg/0.4 mL Syringe SUBCUT (21:04)
[2024-10-25] VITALS (8 sets, daily range): BP systolic 130–167; BP diastolic 69–75; PULSE 71–87; RESP 15–18; TEMP 36.3–36.7; O2SAT 90–92
[2024-10-25] MEDS: ipratropium-albuterol 3 mL Neb INHALATION ×2 (02:41→09:54)
[2024-10-25 06:00] LABS: Basophils # 0.1 10^3/uL (0.0-0.1); Basophils % 0.6 %; Eosinophils # 0.2 10^3/uL (0.0-0.8); Eosinophils % 1.2 %; Hematocrit 34.1 % (36-47); Lymphocytes # 8.4 10^3/uL (0.8-4.8); Lymphocytes % 56.6 %; Mean Corpuscular HGB Conc 31.4 g/dL (30-55); Mean Corpuscular Hemoglobin 26.8 pg (27-33); Mean Corpuscular Volume 85.5 fl (85-98); Mean Platelet Volume 10.1 fL (7.4-10.4); Monocytes # 0.8 10^3/uL (0.2-0.9); Monocytes % 5.1 %; Neutrophils # 5.11 10^3/uL (1.8-7.7); Neutrophils % 34.5 %; Nucleated Red Blood Cells % 0 %; Platelet Count 258 10^3/cmm (157-399); Red Blood Count 3.99 10^6/uL (3.85-5.65); Red Cell Distribution Width 16.3 % (12.1-15.1)
[2024-10-25 06:25] LABS: Alanine Aminotransferase 13 U/L (0-33); Albumin Level 3.3 g/dL (3.5-5.2); Alkaline Phosphatase 108 U/L (35-105); Anion Gap 12.1 (5-19); Aspartate Amino Transferase 11 U/L (0-32); Blood Urea Nitrogen 17 mg/dL (8-23); Calcium 8.5 mg/dL (8.5-10.5); Carbon Dioxide 27 mmol/L (22-29); Chloride 103 mmol/L (98-107); Creatinine Clr Calc Pharmacy 51.7742; Globulin 2.5 g/dL (1.3-4.6); Glucose 78 mg/dL (65-115); Osmolality Calculated 288 mOsm/kg (285-295); Potassium 3.1 mmol/L (3.5-5.1); Sodium 139 mmol/L (136-145); Total Bilirubin 0.3 mg/dL (0.15-1.2); Total Protein 5.8 g/dL (6.6-8.7)
[2024-10-25 06:29] LABS: Magnesium 1.9 mg/dL (1.7-2.3)
[2024-10-25] MEDS: meropenem 1,000 mg SDV 1000 MG IVP (06:34)
[2024-10-25 06:39] LABS: Folate Level 2.8 ng/mL (4.8-37.3)
[2024-10-25 07:23] LABS: Slide Review Slide Review Perform
[2024-10-25] MEDS: hydrocortisone 100 mg/2 mL SDV 25 MG IVP (09:06)
[2024-10-25] MEDS: atorvastatin 40 mg Tablet 20 MG PO (09:07)
[2024-10-25] MEDS: clopidogrel 75 mg Tablet PO (09:07)
[2024-10-25] MEDS: pantoprazole DR 40 mg Tablet PO (09:07)
[2024-10-25] MEDS: citalopram 20 mg Tablet 40 MG PO (09:07)
--- NOTE | 2024-10-25 11:13 | PM.DCS ---
Discharge Providers Date of Admission: 10/21/24 18:04 Date of Discharge: October 25, 2024 Attending Provider at Admission: José Miguel Yepez Attending Provider at Discharge: Gilbert Sheppard MD Primary Care Provider: Rios Anaya DO Diagnoses at Discharge Discharge Diagnosis (1) Urinary tract infection: Status: Acute (2) Acute encephalopathy: Status: Acute (3) SIRS (systemic inflammatory response syndrome): Status: Acute (4) Lactic acidosis: Status: Acute (5) Mesenteric artery stenosis: Status: Acute (6) Lung nodules: Status: Acute (7) Aortic aneurysm: Status: Acute (8) Interstitial lung disease: Status: Acute Reason for Visit Reason for Visit: stroke like symptoms Brief History: History as per HPI: Pleasant 84-year-old lady with history of CVA, HTN, GERD, chronic back pain, other medical problems who lives with her family, was found down on the floor after the family had left for short time, was acting confused, having difficulty speaking, was brought to ER initially with concern for CVA, assessed with stroke code, CT head obtained and unremarkable, not found to have any new focal deficits. She is having chills, and ER is noted hypotensive, blood pressure as low as 79/56, with significant leukocytosis 18.78, afebrile but temp mildly low 97.4, states normally does not run a fever, but has been having rigors. Found to have abnormal UA with positive nitrate, 11-20 WBC. Has been having some recurrent nausea last several weeks, although not vomiting. No diarrhea. Chest x-ray with left apical nodule opacities, superior new since 2021, inferior increased in size since 2021, partial obscured by overlying EKG electrode. Superior lesion possibly presenting pneumonia versus possible pulmonary nodules given lower nodule. Consider CT. Bilateral peripheral areas of reticulation and fibrotic changes suspicious for underlying residual lung fibrosis. CT abdomen pelvis with diffuse bladder wall thickening suggestive of cystitis. Mild infrarenal abdominal aortic aneurysm mildly increased in size since 2021, now measuring 2.7 x 2.6 cm (previously 2.4 x 2.5 cm). Stable ascending aortic aneurysm up to 2.9 x 3.5 cm. Moderate stenosis of proximal spiramycin circumflex artery ostium, grossly unchanged. Nonspecific bilateral basilar peripheral reticulation and bronchiectasis suggestive of underlying interstitial lung disease. Lactic acid noted 2.3. Blood cultures collected. She received ceftriaxone. Hospital Course Hospital Course Patient was admitted to the hospital further evaluation and management of acute encephalopathy, lactic acidosis in setting of UTI. She was started on IV hydration along with broad-spectrum antibiotics for SIRS. There was a concern for possible adrenal insufficiency for which she was started on high-dose steroids which was gradually weaned. She responded well to the treatment and was gradually transferred out of ICU to regular floor. Blood cultures during hospitalization remain negative and urine culture positive for E. coli. She worked well with physical therapy. Cosyntropin stimulation test was done during hospitalization which was negative for adrenal insufficiency. She has been discharged in hemodynamically stable condition with home health and physical therapy on steroid taper, Levaquin for 5 more days to finish her course of antibiotics for UTI. During hospitalization her antihypertensives were adjusted. Physical Exam Narrative: Const: COMMON NORMALS: patient oriented x3 and alert GENERAL APPEARANCE: cooperative and frail appearing ORIENTATION/CONSCIOUSNESS: Yes awake HENMT: COMMON NORMALS: oropharynx normal Neck/C-Spine: COMMON NORMALS: no JVD Resp: COMMON NORMALS: normal respiratory effort and clear to auscultation bilaterally AUSCULTATION: clear to auscultation bilaterally and rhonchi Cardio: COMMON NORMALS: no JVD, regular rhythm, S1 normal heart sound present, S2 normal heart sound present and No murmurs present (Cardio) RHYTHM: regular rhythm HEART SOUNDS: S1 normal heart sound present and S2 normal heart sound present GI: COMMON NORMALS: Normal to inspection, nondistended, normoactive bowel sounds present, Soft to palpation and non-tender PALPATION: Yes Soft to palpation Extremity: COMMON NORMALS: no joint enlargement and no pedal edema Neuro: COMMON NORMALS: patient oriented x3 and moves all extremities SENSORIUM/ORIENTATION: Yes alert OTHER: She is awake and alert, following directions, no difficulty tracking. No facial droop. I do not detect dysarthria, minimal if any dysarthria appears related to rigors. Moving all extremities. Power symmetrical. Skin: COMMON NORMALS: no rashes or lesions noted GENERAL SKIN EXAM: no rashes or lesions noted Urinary Catheter Management: Martinez: Cath Placed During This Visit: yes, but has since been removed by the nurse Reason for Continuing Indwelling Catheter: Decision to DC Catheter Urinary Catheter Date of Insertion: 11/22/24 Urinary Catheter Time of Insertion: 18:45 Date Urinary Catheter Removed: 10/24/24 Time Urinary Catheter Discontinued: 16:28 Discharge Data Studies Completed and Pending Completed Studies During Hospitalization Category Date Time Status CT abdomen pelvis w con* [id number] Stat Cat Scan 10/21/24 15:[address] head thrombolytic [id number] Stat Cat Scan 10/21/24 15:34 Completed [place] barium swallow modifd [id number] Routine Exams 10/24/24 09:30 Completed XR chest 1V portable [id number] Stat Exams 10/21/24 17:24 Completed Pending at discharge Category Date Time Status Blood Culture Stat Lab 10/21/24 15:56 Results MAG [Magnesium] AM LABS Lab 10/26/24 04:00 Ordered MAG [Magnesium] AM LABS Lab 10/27/24 04:00 Ordered Radiology Impressions Head CT 10/21/24 15:34 IMPRESSION: 1. No acute intracranial findings. 2. Severe chronic microvascular ischemic changes. ASSESSMENT: ASPECTS ([place]ena Stroke Program Early CT Score) is 10. Abdomen/Pelvis CT 10/21/24 15:44 IMPRESSION: 1. Diffuse bladder wall thickening, which is suggestive of cystitis in the appropriate clinical setting. 2. Otherwise, no acute findings. 3. Mild infrarenal abdominal aortic aneurysm, mildly increased in size since 2021, now measuring 2.7 x 2.6 cm (previously 2.4 x 2.5 cm). 4. 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 5. 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 6. Nonspecific bilateral basilar peripheral reticulation and bronchiolectasis, suggestive of underlying interstitial lung disease. Findings appear grossly unchanged since 2021. Chest X-Ray 10/21/24 17:24 IMPRESSION: 1. Left apical nodular opacities, the superior of which is new since 2021 and the inferior of which appears increased in size since 2021 and is partially obscured by an overlying EKG electrodes/lead. The superior lesion may represent pneumonia in the appropriate clinical setting, although given persistence of the inferior lesion, these may represent discrete pulmonary nodules. Consider further characterization with chest CT. 2. Bilateral peripheral areas of reticulation and fibrotic changes, suspicious for underlying interstitial lung fibrosis. Modified Barium Swallow 10/24/24 09:30 Impression: 1. Decreased mastication and minimal oral residue. 2. No aspiration but minimal penetration. 3. Minimal vallecular residue. 4. Decreased motility of the esophagus with slow passage of the barium tablet into the stomach. Microbiology 10/21/24 16:48 Urine,Clean Catch Urine Culture - Final Escherichia coli 10/21/24 15:56 Blood Blood Culture - Preliminary NEGATIVE TO DATE 10/21/24 15:54 Blood Blood Culture - Preliminary NEGATIVE TO DATE Laboratory Results WBC 14.80 10^3/uL (3.29-11.43) H 10/25/24 05:30 RBC 3.99 10^6/uL (3.85-5.65) 10/25/24 05:30 Hgb 10.70 g/dL (11.27-16.99) L 10/25/24 05:30 Hct 34.1 % (36-47) L 10/25/24 05:30 MCV 85.5 fl (85-98) 10/25/24 05:30 MCH 26.8 pg (27-33) L 10/25/24 05:30 MCHC 31.4 g/dL (30-55) D 10/25/24 05:30 RDW 16.3 % (12.1-15.1) H 10/25/24 05:30 Plt Count 258 10^3/cmm (157-399) 10/25/24 05:30 MPV 10.1 fL (7.4-10.4) 10/25/24 05:30 Neut % (Auto) 34.5 % 10/25/24 05:30 Lymph % (Auto) 56.6 % 10/25/24 05:30 Villalba % (Auto) 5.1 % 10/25/24 05:30 Eos % (Auto) 1.2 % 10/25/24 05:30 Baso % (Auto) 0.6 % 10/25/24 05:30 Neut # (Auto) 5.11 10^3/uL (1.8-7.7) 10/25/24 05:30 Lymph # (Auto) 8.4 10^3/uL (0.8-4.8) H 10/25/24 05:30 Villalba # (Auto) 0.8 10^3/uL (0.2-0.9) 10/25/24 05:30 Eos # (Auto) 0.2 10^3/uL (0.0-0.8) 10/25/24 05:30 Baso # (Auto) 0.1 10^3/uL (0.0-0.1) 10/25/24 05:30 Nucleated RBC % (auto) 0 % 10/25/24 05:30 Nucleated RBCs # 0.0 /100WBC 10/25/24 05:30 PT 13.40 SECONDS (12.1-14.9) 10/21/24 15:05 INR 0.99 (0.8-1.2) 10/21/24 15:05 APTT 27.3 SECONDS (23.9-36.7) 10/21/24 15:05 Sodium 139 mmol/L (136-145) 10/25/24 05:30 Potassium 3.1 mmol/L (3.5-5.1) L 10/25/24 05:30 Chloride 103 mmol/L (98-107) 10/25/24 05:30 Carbon Dioxide 27 mmol/L (22-29) 10/25/24 05:30 Anion Gap 12.1 (5-19) 10/25/24 05:30 BUN 17 mg/dL (8-23) 10/25/24 05:30 Creatinine 0.6 mg/dL (0.5-0.9) 10/25/24 05:30 GFR Calculation Not Reportable 10/25/24 05:30 Glucose 78 mg/dL (65-115) 10/25/24 05:30 POC Glucose 94 mg/dL (70-110) 10/21/24 15:35 Estimat Average Glucose 111 10/24/24 04:31 Hemoglobin A1c 5.5 % (4.0-6.0) 10/24/24 04:31 Calculated Osmolality 288 mOsm/kg (285-295) 10/25/24 05:30 Lactic Acid 2.3 mmol/L (0.5-2.2) H 10/21/24 15:05 Lactic Acid (Sepsis) 2.2 mmol/L (0.5-2.2) 10/21/24 18:09 Calcium 8.5 mg/dL (8.5-10.5) 10/25/24 05:30 Magnesium 1.9 mg/dL (1.7-2.3) 10/25/24 05:30 Iron 50 ug/dL (37-145) 10/24/24 04:31 TIBC 218 mcg/dl 10/24/24 04:31 % Saturation 22.9 % (20-50) 10/24/24 04:31 Unsat Iron Binding 168 ug/dL (112-347) 10/24/24 04:31 Total Bilirubin 0.3 mg/dL (0.15-1.2) 10/25/24 05:30 AST 11 U/L (0-32) 10/25/24 05:30 ALT 13 U/L (0-33) 10/25/24 05:30 Alkaline Phosphatase 108 U/L (35-105) H 10/25/24 05:30 Creatine Kinase 49 U/L (26-192) 10/21/24 15:05 Total Protein 5.8 g/dL (6.6-8.7) L 10/25/24 05:30 Albumin 3.3 g/dL (3.5-5.2) L 10/25/24 05:30 Globulin 2.5 g/dL (1.3-4.6) 10/25/24 05:30 Triglycerides 68 mg/dL (0-150) 10/24/24 04:31 Cholesterol 133 mg/dL (0-200) 10/24/24 04:31 LDL Cholesterol, Calc 65 mg/dL (50-129) 10/24/24 04:31 Total VLDL Cholesterol 14 mg/dL (0-30) 10/24/24 04:31 HDL Cholesterol 54 mg/dL (60-100) L 10/24/24 04:31 Cholesterol/HDL Ratio 2.46 mg/dL (0.0-4.40) 10/24/24 04:31 Vitamin B12 268 pg/mL (232-1245) 10/24/24 04:31 Folate 2.8 ng/mL (4.8-37.3) L 10/25/24 05:30 TSH 0.33 uIU/mL (0.27-4.20) 10/24/24 04:31 Cortisol Response 10/24/24 13:12 Urine Color Dark yellow (Yellow) A 10/21/24 16:48 Urine Appearance Clear (CLEAR) 10/21/24 16:48 Urine pH 5.5 (5-7) 10/21/24 16:48 Ur Specific [place] 1.050 (1.005-1.030) H 10/21/24 16:48 Urine Protein 1+ (Negative) A 10/21/24 16:48 Urine Glucose (UA) Negative (Normal) 10/21/24 16:48 Urine Ketones Negative (Negative) 10/21/24 16:48 Urine Blood Non-haemolysed trace (Negative) 10/21/24 16:48 Urine Nitrate Positive (Negative) A 10/21/24 16:48 Urine Bilirubin Negative (Negative) 10/21/24 16:48 Urine Urobilinogen 1.0 mg/dL (Negative) 10/21/24 16:48 Ur Leukocyte Esterase Trace (Negative) A 10/21/24 16:48 Urine RBC 0-2 /hpf (0-2) 10/21/24 16:48 Urine WBC 11-20 /hpf (0-5) H 10/21/24 16:48 Ur Squamous Epith Cells 0-5 /hpf (0-5) 10/21/24 16:48 Amorphous Sediment Not Reportable 10/21/24 16:48 Urine Bacteria 4+ /hpf (NONE) H 10/21/24 16:48 Hyaline Casts 17.77 /lpf 10/21/24 16:48 Urine Opiates Screen Negative ng/mL (Negative) 10/21/24 16:48 Ur Barbiturates Screen Negative ng/mL (Negative) 10/21/24 16:48 Ur Phencyclidine Scrn Negative ng/mL (Negative) 10/21/24 16:48 Ur Amphetamines Screen Negative ng/mL (Negative) 10/21/24 16:48 U Benzodiazepines Scrn Negative ng/mL (Negative) 10/21/24 16:48 Urine Cocaine Screen Negative ng/mL (Negative) 10/21/24 16:48 U Marijuana (THC) Screen Negative ng/mL (Negative) 10/21/24 16:48 Coronavirus (PCR) Negative (Negative) 10/23/24 16:52 Influenza A (PCR) Negative (Negative) 10/23/24 16:52 Influenza Type B (PCR) Negative (Negative) 10/23/24 16:52 RSV (PCR) Negative (Negative) 10/23/24 16:52 Vitals Last Vital Signs Temp 97.4 F L 10/25/24 07:40 Pulse 80 10/25/24 10:01 Resp 16 10/25/24 09:50 BP 158/71 10/25/24 07:40 Pulse Ox 92 10/25/24 09:50 O2 Del Method Room Air 10/25/24 09:50 O2 Flow Rate 1 10/22/24 13:29 Discharge Plan Discharge Patient Disposition: Home Health Service Condition: Stable Prescriptions: New prednisone 10 mg tablet See Taper PO DIRECTED Qty: 42 0RF Taper: predniSONE 60-10 60 mg Daily for 2 Days and 0 Hour 50 mg Daily for 2 Days and 0 Hour 40 mg Daily for 2 Days and 0 Hour 30 mg Daily for 2 Days and 0 Hour 20 mg Daily for 2 Days and 0 Hour 10 mg Daily for 2 Days and 0 Hour Rx Instructions: see taper instructions amlodipine 5 mg tablet 5 mg PO DAILY Qty: 30 0RF levofloxacin 500 mg tablet 500 mg PO DAILY 5 Days Qty: 5 0RF Continued diphenhydramine HCl 25 mg capsule 25 mg PO TID PRN (Reason: allergy symptoms) Qty: 21 0RF albuterol sulfate 90 mcg/actuation HFA aerosol inhaler 2 puff inhalation QID Qty: 8.5 3RF atorvastatin 20 mg tablet 20 mg PO DAILY Qty: 90 3RF pantoprazole 40 mg tablet,delayed release (DR/EC) 40 mg PO DAILY Qty: 90 3RF Rx Instructions: TAKE 30 MINUTES BEFORE BREAKFAST. clopidogrel [Plavix] 75 mg tablet 75 mg PO DAILY Qty: 90 3RF acetaminophen 500 mg Tablet 500 mg PO Q6H PRN (Reason: Pain) Discontinued amlodipine-valsartan 5-160 mg tablet 1 tab PO DAILY Qty: 90 3RF lisinopril 30 mg tablet 30 mg PO DAILY meloxicam 15 mg tablet 15 mg PO DAILY Discharge Orders: Discharge Order (Routine); Ordered 10/25/24 Ordered By: Gilbert Sheppard Referrals: [facility]) [Outside] Rios Anaya DO [Primary Care Provider] - 10/31/24 9:20 am Discharge Diet: GI Soft and Soft Mechanical Discharge Activity: Resume usual activity and Increase activity as tolerated Patient Instructions: Prednisone (By mouth), Amlodipine (By mouth), Levofloxacin (By mouth) (Levaquin, Levaquin Leva-cade), Opioid Safety Activity Restrictions/Additional Instructions: Continue with GI soft diet for next few weeks. Take Levaquin to the antibiotic for next 5 days. Goal blood pressure of less than 140/90 mmHg. Please check your blood pressure daily at home maintain a blood pressure diary and follow-up with a primary care provider within next 2 weeks for further adjustment of antihypertensive. For now only take amlodipine 5 mg oral daily for blood pressures. Discharge Attestations Time Spent in Discharge Care*: greater than 30 min Specific Discharge Activities: educating patient, discussing with pcp/other providers, discussing with disease case manager rn/social workers/dc planners, documenting/other paperwork and evaluating patient/reviewing data Status at Discharge: Cognitive status at discharge: cognitively intact, Behavioral status at discharge: cooperative, Functional status at discharge: uses cane/walker, Overall status at discharge: patient is progressing back to baseline Quality Metrics Clinical Quality Measures [ No reported AMI, CVA or VTE this stay] Coding Level of Care Code 11905 Total time (in minutes) for Discharge: 60 Diagnoses Urinary tract infection N39.0 Acute encephalopathy G93.40 SIRS (systemic inflammatory response syndrome) R65.10 Lactic acidosis E87.20 Mesenteric artery stenosis K55.1 Lung nodules R91.8 Aortic aneurysm I71.9 Interstitial lung disease J84.9
== END 2024-10-25 14:15 | disposition home health service (06) | DRG 689 ==
LOC: ER 18:08 → ICU 20:00 → MEDSURG 10-22 17:23
PROVIDERS: Admitting Provider Internal Medicine; Emergency Provider Family Medicine; PCP Family Medicine; Visit Provider Student in an Organized Health Care Education/Training Program
DX: N30.90 Cystitis, unspecified without hematuria (principal); G93.41 Metabolic encephalopathy; K55.1 Chronic vascular disorders of intestine; E87.20 Acidosis, unspecified; I95.9 Hypotension, unspecified; Z86.73 Personal history of transient ischemic attack (TIA), and cerebral infarction without residual deficits; I10 Essential (primary) hypertension; K21.9 Gastro-esophageal reflux disease without esophagitis; G89.29 Other chronic pain; M54.9 Dorsalgia, unspecified; J84.10 Pulmonary fibrosis, unspecified; I71.43 Infrarenal abdominal aortic aneurysm, without rupture; I35.0 Nonrheumatic aortic (valve) stenosis; Z79.02 Long term (current) use of antithrombotics/antiplatelets; Z79.51 Long term (current) use of inhaled steroids; Z87.440 Personal history of urinary (tract) infections; Z87.01 Personal history of pneumonia (recurrent); E78.5 Hyperlipidemia, unspecified; Z98.1 Arthrodesis status; Z87.891 Personal history of nicotine dependence; B96.20 Unspecified Escherichia coli [E. coli] as the cause of diseases classified elsewhere; J40 Bronchitis, not specified as acute or chronic; R91.8 Other nonspecific abnormal finding of lung field; R68.0 Hypothermia, not associated with low environmental temperature
CPT/HCPCS: 0241U; 36415; 36416; 51702; 70450; 71045; 74177; 74230; 80053; 80061; 80306; 81001; 82533; 82550; 82607; 82746; 82962; 83036; 83540; 83550; 83605; 83735; 84443; 85025; 85610; 85730; 87040; 87077; 87086; 87186; 92611; 93005; 94640; 96361; 96372; 96374; 96376; 97116; 97161; 99285; J0696; J0834; J1650; J1720; J2185; J7030

== ENCOUNTER → 2024-10-31 09:57 | Outpatient (BNVA) | payer MEDICARE, SELFPAY | PROVIDERS: PCP Family Medicine; Visit Provider Family Medicine | DX: N39.0 Urinary tract infection, site not specified (principal); D64.9 Anemia, unspecified | CPT/HCPCS: 80053; 85025 ==

== ENCOUNTER → 2024-11-02 13:44 | Outpatient (BNVA) | payer MEDICARE, SELFPAY | PROVIDERS: PCP Family Medicine; Visit Provider Family Medicine | DX: D72.829 Elevated white blood cell count, unspecified (principal); N39.0 Urinary tract infection, site not specified; D64.9 Anemia, unspecified | CPT/HCPCS: 81000; 85025 ==

== ENCOUNTER → 2024-11-11 11:41 | Outpatient (BNVA) | payer MEDICARE, SELFPAY | PROVIDERS: PCP Family Medicine; Visit Provider Family Medicine | DX: D72.829 Elevated white blood cell count, unspecified (principal); N39.0 Urinary tract infection, site not specified | CPT/HCPCS: 81000; 85025; 87086 ==

== ENCOUNTER → 2024-12-05 10:14 | Outpatient (BNVA) | payer MEDICARE, SELFPAY | PROVIDERS: PCP Family Medicine; Visit Provider Family Medicine | DX: N39.0 Urinary tract infection, site not specified (principal); D64.9 Anemia, unspecified; D72.829 Elevated white blood cell count, unspecified | CPT/HCPCS: 80053; 81000; 85007; 85025 ==

== ENCOUNTER 2025-04-13 20:25 | Emergency (ER) | payer MEDICARE, SELFPAY ==
[2025-04-13 20:42] VITALS: BP 111/75; PULSE 87; RESP 16; TEMP 36.6; O2SAT 96; BMI 20.7
--- NOTE | 2025-04-13 22:09 | W.ED.NAVMDI ---
HPI - Nausea/Vomiting/Diarrhea General: Chief complaint: Nausea/Vomiting/Diarrhea Stated complaint: severe diarrhea cramping Time Seen by Provider: 04/13/25 22:05 History of Present Illness: 85-year-old female with a history of interstitial lung disease, aortic aneurysm, stroke, hypertension and hyperlipidemia who presents to the emergency room with diarrhea. She has had some nausea but no vomiting. She has had lower abdominal pain and cramping. But currently has no pain. No chest pain. No altered mental status. She says this been going on for about 2 weeks now. No fevers. Related Data Home Medications ?Medication ?Instructions ?Recorded ?Confirmed acetaminophen 500 mg tablet 500 mg PO Q6H PRN Pain 07/19/22 10/22/24 Previous Rx's ?Medication ?Instructions ?Recorded diphenhydramine HCl 25 mg capsule 25 mg PO TID PRN allergy symptoms 07/15/23 #21 caps albuterol sulfate 90 mcg/actuation 2 puff inhalation QID wheezing 09/06/24 aerosol inhaler #8.5 grams prednisone 10 mg tablet See Taper PO DIRECTED #42 tabs 10/25/24 levofloxacin 500 mg tablet 500 mg PO DAILY infection #5 tabs 10/31/24 amoxicillin 875 mg-potassium 1 tab PO BID infection #20 tabs 11/03/24 clavulanate 125 mg tablet amlodipine 5 mg tablet 5 mg PO DAILY bp #90 tabs 12/01/24 atorvastatin 20 mg tablet 20 mg PO DAILY #90 tabs 12/14/24 clopidogrel 75 mg tablet (Plavix) 75 mg PO DAILY #90 tabs 12/14/24 pantoprazole 40 mg tablet,delayed 40 mg PO DAILY #90 tabs 03/07/25 release cephalexin 500 mg tablet 500 mg PO TID 7 days #21 tabs 04/14/25 ondansetron 4 mg disintegrating 4 mg PO Q8H PRN nausea and 04/14/25 tablet vomiting #10 tabs Allergies Allergy/AdvReac Type Severity Reaction Status Date / Time chlorhexidine (From Allergy blisters Verified 02/27/25 11:39 ChloraPrep Clear) isopropyl alcohol (From Allergy blisters Verified 02/27/25 11:39 ChloraPrep Clear) Sulfa (Sulfonamide Allergy RASH Verified 02/27/25 11:39 Antibiotics) Review of Systems Narrative: Constitutional symptoms: Negative except as documented in HPI. Skin symptoms: Negative except as documented in HPI. Eye symptoms: Negative except as documented in HPI. ENMT symptoms: Negative except as documented in HPI. Respiratory symptoms: Negative except as documented in HPI. Cardiovascular symptoms: Negative except as documented in HPI. Gastrointestinal symptoms: Negative except as documented in HPI. Genitourinary symptoms: Negative except as documented in HPI. Musculoskeletal symptoms: Negative except as documented in HPI. Neurologic symptoms: Negative except as documented in HPI. Psychiatric symptoms: Negative except as documented in HPI. Endocrine symptoms: Negative except as documented in HPI. PFSH ED PFSH: Medical History Interstitial lung disease Aortic aneurysm Mesenteric artery stenosis Heart murmur Sepsis Acute respiratory failure with hypoxia Urinary tract infection CAP (community acquired pneumonia) GERD (gastroesophageal reflux disease) Cat bite CVA (cerebral vascular accident) Dyslipidemia HTN (hypertension) Surgical History History of cholecystectomy H/O lumbar discectomy Family History Other Family history non-contributory Social History Smoking and tobacco/nicotine status: former use of tobacco/nicotine Alcohol intake: never Substance/Drug Use: never Housing: House Physical Exam Narrative: EXAM NARRATIVE: General: Alert, no acute distress. Skin: Warm, dry. Head: Normocephalic, atraumatic. Neck: Supple, trachea midline. Eye: Extraocular movements are intact. Ears, nose, mouth and throat: Tacky oral mucosa Cardiovascular: Regular, Normal peripheral perfusion. Respiratory: Lungs are clear to auscultation, respirations are non-labored, breath sounds are equal, Symmetrical chest wall expansion. Gastrointestinal: Soft, Nontender, Non distended Musculoskeletal: Normal ROM, no deformity. Neurological: Alert and oriented, No focal neurological deficit observed. Psychiatric: Cooperative, appropriate mood & affect. Course Vital Signs: Vital signs: Vital Signs Temperature 97.9 F 04/13/25 20:42 Pulse Rate 76 04/13/25 22:48 Respiratory Rate 16 04/13/25 20:42 Blood Pressure 107/78 04/13/25 22:48 Pulse Oximetry 95 04/13/25 22:48 Oxygen Delivery Me thod Room Air 04/13/25 20:42 MDM - Nausea/Vomiting/Diarrhea Medical Decision Making Medical decision making: Differential diagnosis including but not limited to and based on the above HPI, review of systems and physical exam: In this patient with diarrhea and abdominal pain would have concern for viral gastroenteritis, C. difficile, also have concern for renal failure. Orders placed to evaluate differential diagnosis based on the above differential, HPI and physical exam Lab Review: Laboratory results were reviewed and interpreted by myself the emergency room physician. Mild leukocytosis. No anemia. No renal failure. Urine is quite concentrated at 1.050. She has 11-20 whites with 4+ bacteria so treating for urinary tract infection. CT of the abdomen pelvis: This was ordered because she has been having pain and diarrhea. There is concern for liver masses. Also pulmonary nodules. Also some concern for a uterine mass possibly or a fibroid. This was reviewed and interpreted by myself the emergency room physician. I also reviewed the radiology report. CT of the chest: This was ordered secondary to abnormal findings. There is a large lung mass in the left upper lobe. Patient says she is actually been having some discomfort in that area. Also multiple pulmonary nodules that likely are metastatic. Also the liver lesions are better viewed on these films and appeared to be metastatic disease as well. This was reviewed and interpreted by myself the emergency room physician. I also reviewed the radiology report. I reviewed the patient's medical record. Reexamination: Patient has remained stable. No diarrhea since she has been here. No altered mental status. No focal motor deficits. No increased work of breathing. I discussed with her and family at length the findings on the CT scan. These seem to be incidental and not related to her reason for presentation. We have discussed that she has a mass in her lungs with concern for metastatic disease to her liver. They expressed understanding. They will follow with the primary and/or with oncology soon as possible. Return to the emergency room with concerning symptoms. Assessment and plan: Viral gastroenteritis Urinary tract infection Dehydration Lung mass Liver masses ? IV fluids and IV Rocephin in the emergency room. Also some IV Zofran. - Discharged home - Discussed plan with patient. Answered any questions. - Evaluation and treatment of this problem were appropriate in the emergency setting. Lab Data 04/13/25 21:49 04/13/25 21:49 Radiology Impressions Abdomen/Pelvis CT 04/13/25 22:39 IMPRESSION: 1. Faint ill-defined hypoattenuating lesions throughout the liver, measuring up to 2.8 cm. This likely represents metastatic disease throughout the liver. 2. Questionable appearance of multiple pulmonary nodules in the bilateral lung bases, measuring up to 1.0 cm. This is concerning for metastatic disease to the lungs. 3. 1.5 cm peripherally enhancing lesion at the left aspect of the uterus. This was not seen on prior studies. This may represent an intervally developed small uterine fibroid. Alternatively, this may represent neoplasia. 4. Moderate interstitial fibrotic disease of the lung bases. Chest CT 04/14/25 00:27 IMPRESSION: 1. 5.7 cm lobulated pulmonary mass centered in the posterosuperior left lower lobe, with lobular extension into the left upper lobe. 2. Multiple additional subcentimeter pulmonary nodules throughout the bilateral lungs, likely representing small metastases. 3. Moderate to severe interstitial fibrotic disease of the lungs. 4. Numerous enhancing lesions throughout the entirety of the liver, measuring up to 3.2 cm, better seen on current study than on earlier same day CT abdomen/pelvis, consistent with diffuse metastatic disease of the liver. Laboratory Results WBC 10.89 10^3/uL (3.29-11.43) 04/13/25 21:49 RBC 5.10 10^6/uL (3.85-5.65) 04/13/25 21:49 Hgb 12.70 g/dL (11.27-16.99) 04/13/25 21:49 Hct 42.6 % (36-47) 04/13/25 21:49 MCV 83.5 fl (85-98) L 04/13/25 21:49 MCH 24.9 pg (27-33) L 04/13/25 21:49 MCHC 29.8 g/dL (30-55) L 04/13/25 21:49 RDW 16.8 % (12.1-15.1) H 04/13/25 21:49 Plt Count 304 10^3/cmm (157-399) 04/13/25 21:49 MPV 10.1 fL (7.4-10.4) 04/13/25 21:49 Neut % (Auto) 65.2 % 04/13/25 21:49 Lymph % (Auto) 28.1 % 04/13/25 21:49 [place] % (Auto) 5.1 % 04/13/25 21:49 Eos % (Auto) 0.4 % 04/13/25 21:49 Baso % (Auto) 0.7 % 04/13/25 21:49 Neut # (Auto) 7.11 10^3/uL (1.8-7.7) 04/13/25 21:49 Lymph # (Auto) 3.1 10^3/uL (0.8-4.8) 04/13/25 21:49 [place] # (Auto) 0.6 10^3/uL (0.2-0.9) 04/13/25 21:49 Eos # (Auto) 0.0 10^3/uL (0.0-0.8) 04/13/25 21:49 Baso # (Auto) 0.1 10^3/uL (0.0-0.1) 04/13/25 21:49 Nucleated RBC % (auto) 0 % 04/13/25 21:49 Nucleated RBCs # 0.0 /100WBC 04/13/25 21:49 Sodium 137 mmol/L (136-145) 04/13/25 21:49 Potassium 4.3 mmol/L (3.5-5.1) 04/13/25 21:49 Chloride 103 mmol/L (98-107) 04/13/25 21:49 Carbon Dioxide 21 mmol/L (22-29) L 04/13/25 21:49 Anion Gap 17.3 (5-19) 04/13/25 21:49 BUN 11 mg/dL (8-23) 04/13/25 21:49 Creatinine 0.6 mg/dL (0.5-0.9) 04/13/25 21:49 GFR Calculation Not Reportable 04/13/25 21:49 Glucose 99 mg/dL (65-115) 04/13/25 21:49 Calculated Osmolality 283 mOsm/kg (285-295) L 04/13/25 21:49 Lactic Acid 1.2 mmol/L (0.5-2.2) 04/13/25 21:49 Calcium 9.5 mg/dL (8.5-10.5) 04/13/25 21:49 C-Reactive Protein 18.0 mg/L (0.0-4.9) H 04/13/25 21:49 Lipase 54 U/L (13-60) 04/13/25 21:49 Urine Color Yellow (Yellow) 04/14/25 01:39 Urine Appearance Clear (CLEAR) 04/14/25 01:39 Urine pH 6.0 (5-7) 04/14/25 01:39 Ur Specific [place] 1.050 (1.005-1.030) H 04/14/25 01:39 Urine Protein Negative (Negative) 04/14/25 01:39 Urine Glucose (UA) Negative (Normal) 04/14/25 01:39 Urine Ketones Negative (Negative) 04/14/25 01:39 Urine Blood Negative (Negative) 04/14/25 01:39 Urine Nitrate Positive (Negative) A 04/14/25 01:39 Urine Bilirubin Negative (Negative) 04/14/25 01:39 Urine Urobilinogen 1.0 mg/dL (Negative) 04/14/25 01:39 Ur Leukocyte Esterase 1+ (Negative) A 04/14/25 01:39 Urine RBC 0-2 /hpf (0-2) 04/14/25 01:39 Urine WBC 11-20 /hpf (0-5) H 04/14/25 01:39 Ur Squamous Epith Cells 0-5 /hpf (0-5) 04/14/25 01:39 Amorphous Sediment Not Reportable 04/14/25 01:39 Urine Bacteria 4+ /hpf (NONE) H 04/14/25 01:39 Hyaline Casts 0-4 /lpf H 04/14/25 01:39 All radiology interpretation(s) finalized by discharge Discharge Plan Discharge Patient Disposition: Home Clinical Impression: Urinary tract infection, Mass of lung, Liver masses, Viral gastroenteritis Condition: Stable Prescriptions: New cephalexin 500 mg tablet 500 mg PO TID 7 Days Qty: 21 0RF ondansetron 4 mg tablet,disintegrating 4 mg PO Q8H PRN (Reason: nausea and vomiting) Qty: 10 0RF No Action diphenhydramine HCl 25 mg capsule 25 mg PO TID PRN (Reason: allergy symptoms) Qty: 21 0RF albuterol sulfate 90 mcg/actuation HFA aerosol inhaler 2 puff inhalation QID Qty: 8.5 3RF levofloxacin 500 mg tablet 500 mg PO DAILY Qty: 5 0RF amoxicillin-pot clavulanate 875-125 mg tablet 1 tab PO BID Qty: 20 0RF amlodipine 5 mg tablet 5 mg PO DAILY Qty: 90 3RF atorvastatin 20 mg tablet 20 mg PO DAILY Qty: 90 3RF clopidogrel [Plavix] 75 mg tablet 75 mg PO DAILY Qty: 90 3RF pantoprazole 40 mg tablet,delayed release (DR/EC) 40 mg PO DAILY Qty: 90 3RF Rx Instructions: TAKE 30 MINUTES BEFORE BREAKFAST. acetaminophen 500 mg Tablet 500 mg PO Q6H PRN (Reason: Pain) prednisone 10 mg tablet See Taper PO DIRECTED Qty: 42 0RF Taper: predniSONE 60-10 60 mg Daily for 2 Days and 0 Hour 50 mg Daily for 2 Days and 0 Hour 40 mg Daily for 2 Days and 0 Hour 30 mg Daily for 2 Days and 0 Hour 20 mg Daily for 2 Days and 0 Hour 10 mg Daily for 2 Days and 0 Hour Rx Instructions: see taper instructions Discharge Orders: Discharge ED (Routine); Ordered 04/14/25 Ordered By: Miriam Dejesus Referrals: Blanche Elder MD [Hospitalist, Oncology] Referral Note: Please have your PCP refer you to oncology and/or pulmonology to start the process of getting biopsy to determine the nature of the mass in your lung Rios Anaya DO [Primary Care Provider, Family Practice] Referral Note: Please call for an appoint with Dr. Hein as soon as possible. Discharge Diet: Usual diet Discharge Activity: Increase activity as tolerated Patient Instructions: Gastroenteritis (ED), Urinary Tract Infection in Older Adults (ED), Opioid Safety, Pain Management Activity Restrictions/Additional Instructions: You have been diagnosed with a urinary tract infection, viral gastroenteritis and also with concern for lung cancer that may have spread to your liver.?Follow-up with your primary care provider and with oncology as soon as possible. If you develop any confusion, fevers or other worrisome symptoms please return to the emergency room. Thank you for choosing [facility] for your healthcare needs today. You have been screened and evaluated and felt safe for discharge. Health conditions do change or evolve sometimes and as such it is important that you follow up with your Primary Doctor to be re checked, 3-5 days is a general good time frame for follow up. You are always welcome to return to the ED for re assessment if your symptoms are worsening or you have new concerns Print Language: Ethiopian Coding Level of Care Code ED Bronc Breaker for Marialuisa Freeman
[2025-04-13 22:22] LABS: Basophils # 0.1 10^3/uL (0.0-0.1); Basophils % 0.7 %; Eosinophils % 0.4 %; Hematocrit 42.6 % (36-47); Lymphocytes # 3.1 10^3/uL (0.8-4.8); Lymphocytes % 28.1 %; Mean Corpuscular HGB Conc 29.8 g/dL (30-55); Mean Corpuscular Hemoglobin 24.9 pg (27-33); Mean Corpuscular Volume 83.5 fl (85-98); Mean Platelet Volume 10.1 fL (7.4-10.4); Monocytes # 0.6 10^3/uL (0.2-0.9); Monocytes % 5.1 %; Neutrophils # 7.11 10^3/uL (1.8-7.7); Neutrophils % 65.2 %; Nucleated Red Blood Cells % 0 %; Platelet Count 304 10^3/cmm (157-399); Red Cell Distribution Width 16.8 % (12.1-15.1); White Blood Count 10.89 10^3/uL (3.29-11.43)
[2025-04-13 22:27] LABS: Anion Gap 17.3 (5-19); Blood Urea Nitrogen 11 mg/dL (8-23); Calcium 9.5 mg/dL (8.5-10.5); Carbon Dioxide 21 mmol/L (22-29); Chloride 103 mmol/L (98-107); Creatinine Clr Calc Pharmacy 38.6089; Glucose 99 mg/dL (65-115); Lipase 54 U/L (13-60); Osmolality Calculated 283 mOsm/kg (285-295); Potassium 4.3 mmol/L (3.5-5.1); Sodium 137 mmol/L (136-145)
[2025-04-13 22:28] LABS: Lactic Sepsis W/Reflex 1.2 mmol/L (0.5-2.2)
--- NOTE | 2025-04-13 22:39 | CTR_ITS ---
PROCEDURE INFORMATION: Exam: CT Abdomen And Pelvis With Contrast Exam date and time: 04/13/2025 10:57 PM Age: 85 years old Clinical indication: Abdominal pain; Generalized TECHNIQUE: Imaging protocol: Computed tomography of the abdomen and pelvis with contrast. Radiation optimization: All CT scans at this facility use at least one of these dose optimization techniques: automated exposure control; mA and/or kV adjustment per patient size (includes targeted exams where dose is matched to clinical indication); or iterative reconstruction. Contrast material: OMNI 350; Contrast volume: 75 ml; Contrast route: INTRAVENOUS (IV); COMPARISON: CT abdomen pelvis w con* [id number] 10/21/2024 4:21 PM RADIATION DOSE METRICS: Total DLP (mGy-cm): 315 FINDINGS: Lungs: Moderate interstitial fibrotic disease of the lung bases. Questionable appearance of multiple pulmonary nodules in the bilateral lung bases, measuring up to 1.0 cm. Liver: Faint ill-defined hypoattenuating lesions throughout the liver, measuring up to 2.8 cm. Gallbladder and biliary ducts: Gallbladder is not distinctly identified and is presumed absent. No significant biliary ductal dilation. Pancreas: Moderate atrophy of the pancreas. No pancreatic ductal dilation. Spleen: The spleen is unremarkable. Adrenal glands: The adrenal glands are unremarkable. Kidneys and ureters: Kidneys are normal. No hydronephrosis or nephrolithiasis. Stomach and bowel: No evidence of bowel obstruction. Moderate sigmoid diverticulosis. No distinct focal evidence of acute diverticulitis. Appendix: No evidence of acute appendicitis. Intraperitoneal space: No significant free fluid in the abdomen or pelvis. No extraluminal free air. Vasculature: Moderate calcific atheromatous disease of the abdominal aorta and its major branches. No abdominal aortic aneurysm. Lymph nodes: No distinct pathologically enlarged lymphadenopathy. Urinary bladder: Urinary bladder is within normal limits. Reproductive: 1.5 cm peripherally enhancing lesion at the left aspect of the uterus. Bones/joints: Status post intramedullary akua and screw fixation of the right femur. Multilevel spondylosis. No distinct acute osseous findings. Soft tissues: Visualized superficial soft tissues are within normal limits. Other findings: Fleischner society criteria do not apply in this patient with suspected malignancy. CT/CT abdomen pelvis w con* [id number] IMPRESSION: 1. Faint ill-defined hypoattenuating lesions throughout the liver, measuring up to 2.8 cm. This likely represents metastatic disease throughout the liver. 2. Questionable appearance of multiple pulmonary nodules in the bilateral lung bases, measuring up to 1.0 cm. This is concerning for metastatic disease to the lungs. 3. 1.5 cm peripherally enhancing lesion at the left aspect of the uterus. This was not seen on prior studies. This may represent an intervally developed small uterine fibroid. Alternatively, this may represent neoplasia. 4. Moderate interstitial fibrotic disease of the lung bases.
[2025-04-13] MEDS: sodium chloride 0.9% 1,000 ML 999 ML IV (22:46)
[2025-04-13] MEDS: ondansetron 2 mg/ML SDV 2 mL 4 MG IVP (22:46)
[2025-04-13 22:48] VITALS: BP 107/78; PULSE 76; O2SAT 95
[2025-04-13] MEDS: iohexol 350 mg/mL 500 mL Btl (per mL) IV (22:59)
--- NOTE | 2025-04-14 00:27 | CTR_ITS ---
PROCEDURE INFORMATION: Exam: CT Chest With Contrast; Diagnostic Exam date and time: 04/14/2025 12:37 AM Age: 85 years old Clinical indication: Abnormal findings; Abnormal radiologic exam of lung or chest; Additional info: Abnormal findings on abdominal CT TECHNIQUE: Imaging protocol: Diagnostic computed tomography of the chest with contrast. Radiation optimization: All CT scans at this facility use at least one of these dose optimization techniques: automated exposure control; mA and/or kV adjustment per patient size (includes targeted exams where dose is matched to clinical indication); or iterative reconstruction. Contrast material: OMNI 350; Contrast volume: 75 ml; Contrast route: INTRAVENOUS (IV); COMPARISON: CR XR chest 1V portable [id number] 10/21/2024 5:45 PM RADIATION DOSE METRICS: Total DLP (mGy-cm): 233.9 FINDINGS: Thyroid: Thyroid is normal. Lungs: 5.7 cm lobulated pulmonary mass centered in the posterosuperior left lower lobe, with lobular extension into the left upper lobe. Multiple additional subcentimeter pulmonary nodules throughout the bilateral lungs, likely representing small metastases. Moderate to severe interstitial fibrotic disease of the lungs. Pleural spaces: No significant pleural effusion. No pneumothorax. Heart: Heart is normal in size. No pericardial effusion. Coronary arteries: Coronary artery calcifications. Lymph nodes: No distinct pathologically enlarged lymphadenopathy. Vasculature: Moderate to severe scattered calcific atheromatous disease of the thoracic aorta. Liver: Numerous enhancing lesions throughout the entirety of the liver, measuring up to 3.2 cm, better seen on current study than on earlier same day CT abdomen/pelvis, consistent with diffuse metastatic disease of the liver. Bones/joints: Multilevel spondylosis. No distinct acute osseous fractures. Soft tissues: Visualized superficial soft tissues are within normal limits. CT/CT chest w con* [id number] IMPRESSION: 1. 5.7 cm lobulated pulmonary mass centered in the posterosuperior left lower lobe, with lobular extension into the left upper lobe. 2. Multiple additional subcentimeter pulmonary nodules throughout the bilateral lungs, likely representing small metastases. 3. Moderate to severe interstitial fibrotic disease of the lungs. 4. Numerous enhancing lesions throughout the entirety of the liver, measuring up to 3.2 cm, better seen on current study than on earlier same day CT abdomen/pelvis, consistent with diffuse metastatic disease of the liver.
[2025-04-14] MEDS: iohexol 350 mg/mL 500 mL Btl (per mL) IV (00:40)
[2025-04-14 02:01] LABS: Bilirubin Urine Negative (Negative); Blood Urine Negative (Negative); Glucose Urine UA Negative (Normal); Ketones Urine Negative (Negative); Leukocyte Esterase Urine 1+ (Negative); Nitrate Urine Positive (Negative); Protein Urine Negative (Negative); Urine Appearance Clear (CLEAR); Urine Color Yellow (Yellow)
[2025-04-14 02:06] LABS: Bacteria Urine 4+ /hpf; Hyaline Casts Urine 0-4 /lpf; RBC Urine 0-2 /hpf (0-2); Squamous Epithelial Cell Urine 0-5 /hpf (0-5)
[2025-04-14 02:09] LABS: Add Urine Culture? Yes
[2025-04-14] MEDS: cefTRIAXone 1,000 mg SDV 1000 MG IVP (02:43)
[2025-04-14 03:17] VITALS: BP 135/72; PULSE 73; RESP 16; O2SAT 95
--- NOTE | 2025-04-17 08:28 | DCPLANNER ---
Message sent to PCP and Onc for follow up - she has been having pain and diarrhea. There is concern for liver masses. Also pulmonary nodules. Also some concern for a uterine mass possibly or a fibroid. This was reviewed and interpreted by myself the emergency room physician. I also reviewed the radiology report.
== END 2025-04-14 03:18 | disposition home or self-care (01) ==
PROVIDERS: Emergency Provider Emergency Medicine; PCP Family Medicine
DX: N39.0 Urinary tract infection, site not specified (principal); R91.8 Other nonspecific abnormal finding of lung field; R16.0 Hepatomegaly, not elsewhere classified; K52.9 Noninfective gastroenteritis and colitis, unspecified; Z79.02 Long term (current) use of antithrombotics/antiplatelets; Z87.891 Personal history of nicotine dependence; Z86.73 Personal history of transient ischemic attack (TIA), and cerebral infarction without residual deficits; E78.5 Hyperlipidemia, unspecified; I10 Essential (primary) hypertension
CPT/HCPCS: 36415; 71260; 74177; 80048; 81001; 83605; 83690; 85025; 86140; 87040; 87077; 87086; 87186; 96361; 96374; 96375; 99285; J0696; J2405; J7030

== ENCOUNTER → 2025-04-17 11:59 | Outpatient (BNVA) | payer MEDICARE, SELFPAY | PROVIDERS: PCP Family Medicine; Visit Provider Family Medicine | DX: R74.8 Abnormal levels of other serum enzymes (principal); R16.0 Hepatomegaly, not elsewhere classified; R91.8 Other nonspecific abnormal finding of lung field | CPT/HCPCS: 80053; 82247; 82248; 82977; 85610 ==

== ENCOUNTER 2025-04-19 10:51 | Emergency (ER) | payer MEDICARE, SELFPAY ==
[2025-04-19 10:53] VITALS: BP 71/54; PULSE 85; RESP 18; TEMP 36.7; O2SAT 95; BMI 23.4
--- NOTE | 2025-04-19 10:54 | ECG_ITS ---
[facility] Test Date: 2025-04-19 Pat Name: Sil Diaz Department: Room: Gender: Female [employer]: : 1940 Requested By: Ricky Smith Order Number: [id number] Terry MD: Ashley Tenorio M.D. Measurements Intervals [place] Rate: 83 P: 22 FL: 135 QRS: 31 QRSD: 98 T: 52 QT: 402 QTc: 475 Interpretive Statements SINUS RHYTHM Compared to ECG 10/21/2024 16:36:45 Sinus arrhythmia no longer present Electronically Signed On 04-20-2025 18:09:06 CDT by Ashley Tenorio M.D. [id number]
[2025-04-19 10:58] VITALS: BP 114/56; PULSE 77; RESP 13; O2SAT 94
--- NOTE | 2025-04-19 10:58 | XRR_ITS ---
PROCEDURE INFORMATION: Exam: XR Chest Exam date and time: 04/19/2025 11:02 AM Age: 85 years old Clinical indication: Pain; Chest pressure; Cp prev abnormal CT 5 days ago; Additional info: Chest pain TECHNIQUE: Imaging protocol: Radiologic exam of the chest. Views: 1 view. COMPARISON: CT chest w con* [id number] 04/14/2025 12:37 AM FINDINGS: Lungs: Approximately 9 cm lobular mass or masslike process projects over mid to upper left lung styles/hemithorax suspicious for neoplasm. Possible additional smaller, vague, faint nodules of lungs, thorax bilaterally. Mild interstitial prominence. Pleural spaces: Probable skin folds over upper thorax bilaterally. No large or obvious pneumothorax nor pleural effusion seen. Heart/Mediastinum: Heart size appears upper limits of normal. Vasculature: Atherosclerotic disease. Bones/joints: Curvature, degenerative changes spine. XR/XR chest 1V portable [id number] IMPRESSION: Approximately 9 cm lobular mass or masslike process projects over mid to upper left lung styles/hemithorax suspicious for neoplasm. Possible additional smaller, vague, faint nodules of lungs, thorax bilaterally. Mild interstitial prominence.
--- NOTE | 2025-04-19 10:58 | W.ED.CHESTPA ---
HPI - Chest Pain General: Chief Complaint: Chest Pain Stated Complaint: chest pain Time Seen by Provider: 04/19/25 10:57 History of Present Illness: 85-year-old female who presents to the emergency room with complaints of being lightheaded and dizzy and having some mild left-sided chest discomfort. Pain is reproducible with palpation across anterior chest wall. She is also been somewhat short of breath. She had a syncopal episode after standing up and going to a chair this morning she fell backwards unresponsive for a little bit. She reports pain has been present for the last couple of days intermittently. She also reports the last 2 weeks she has had intermittent diarrhea denies any hematochezia or melena no abdominal pain Associated symptoms: Deny abdominal pain, dyspnea or fever(s) Related Data Home Medications ?Medication ?Instructions ?Recorded ?Confirmed acetaminophen 500 mg tablet 500 mg PO Q6H PRN Pain 07/19/22 04/19/25 cephalexin 500 mg capsule 500 mg PO TID x7d 04/19/25 04/19/25 Previous Rx's ?Medication ?Instructions ?Recorded albuterol sulfate 90 mcg/actuation 2 puff inhalation QID wheezing 09/06/24 aerosol inhaler #8.5 grams clopidogrel 75 mg tablet (Plavix) 75 mg PO DAILY #90 tabs 12/14/24 pantoprazole 40 mg tablet,delayed 40 mg PO DAILY #90 tabs 03/07/25 release ondansetron 4 mg disintegrating 4 mg PO Q8H PRN nausea and 04/14/25 tablet vomiting #10 tabs hydrocodone 5 mg-acetaminophen 325 1 tab PO Q4H PRN pain, metastatic 04/17/25 mg tablet liver masses 7 days #42 tabs hydrocodone 5 mg-acetaminophen 325 1 tab PO Q6H PRN pain #20 tabs 04/19/25 mg tablet Allergies Allergy/AdvReac Type Severity Reaction Status Date / Time chlorhexidine (From Allergy blisters Verified 04/17/25 11:22 ChloraPrep Clear) isopropyl alcohol (From Allergy blisters Verified 04/17/25 11:22 ChloraPrep Clear) Sulfa (Sulfonamide Allergy RASH Verified 04/17/25 11:22 Antibiotics) Review of Systems Const: Denies: fever(s) or chills Card: Reports: chest pain Resp: Denies: dyspnea GI: Denies: abdominal pain : Denies: dysuria, urinary frequency or urinary urgency Musc: Denies: neck pain or back pain Skin/Breast: Denies: rash PFSH ED PFSH: Medical History Interstitial lung disease Aortic aneurysm Mesenteric artery stenosis Heart murmur Sepsis Acute respiratory failure with hypoxia Urinary tract infection CAP (community acquired pneumonia) GERD (gastroesophageal reflux disease) Cat bite CVA (cerebral vascular accident) Dyslipidemia HTN (hypertension) Surgical History History of cholecystectomy H/O lumbar discectomy Family History Other Family history non-contributory Social History Smoking and tobacco/nicotine status: former use of tobacco/nicotine Alcohol intake: never Substance/Drug Use: never Housing: House Physical Exam Const: GENERAL APPEARANCE: cooperative ORIENTATION/CONSCIOUSNESS: Yes awake, Yes oriented to person, Yes oriented to place and Yes oriented to time HENMT: COMMON NORMALS: normocephalic, atraumatic and hearing grossly normal bilaterally HEAD & SCALP: normocephalic and atraumatic Resp: COMMON NORMALS: normal respiratory effort, No retractions, No use of accessory muscles and clear to auscultation bilaterally AUSCULTATION: clear to auscultation bilaterally Cardio: COMMON NORMALS: regular rate, regular rhythm and No murmurs present (Cardio) RATE: regular rate RHYTHM: regular rhythm GI: COMMON NORMALS: Soft to palpation and No hepatosplenomegaly present AUSCULTATION: Yes normoactive bowel sounds PALPATION: Yes Soft to palpation, No Tenderness to palpation present (GI), No Guarding due to palpation present (GI) and Yes No hepatosplenomegaly present Extremity: COMMON NORMALS: normal to inspection, capillary refill normal, no clubbing, cyanosis or edema, no calf tenderness and no pedal edema Neuro: SENSORIUM/ORIENTATION: Yes oriented to person, Yes oriented to place and Yes oriented to time Skin: COMMON NORMALS: no rashes or lesions noted GENERAL SKIN EXAM: no rashes or lesions noted Course Vital Signs: Vital signs: Vital Signs Temperature 98.1 F 04/19/25 10:53 Pulse Rate 74 04/19/25 14:34 Respiratory Rate 12 04/19/25 11:30 Blood Pressure 139/74 04/19/25 14:34 Pulse Oximetry 99 04/19/25 14:34 Oxygen Delivery Me thod Room Air 04/19/25 11:30 MDM - Chest Pain Medical Decision Making Patient recently had CT of the chest and abdomen earlier this month appears to be a large lung mass and lesions in the liver highly suspicious for metastatic disease. Patient improved after IV fluids blood pressure improved to 139/74 she is feeling much better reviewed the findings with also reviewed the previous scans. At this point she has no emergent condition requiring admission she has follow-up scheduled with Dr. Hein he is directing biopsy of the lesion of concern. Troponins done today trended negative. Initial EKG shows normal sinus rhythm with a rate of 83 SC interval of [address] changes. Subsequent EKG shows sinus rhythm of 82 with a SC interval of 132 normal QT interval. No acute ST changes Medical Records I reviewed the patient's medical records. Lab Data I reviewed the patient's lab results. 04/19/25 11:20 04/19/25 11:20 Radiology Impressions Chest X-Ray 04/19/25 10:58 IMPRESSION: Approximately 9 cm lobular mass or masslike process projects over mid to upper left lung styles/hemithorax suspicious for neoplasm. Possible additional smaller, vague, faint nodules of lungs, thorax bilaterally. Mild interstitial prominence. Head CT 04/19/25 10:59 IMPRESSION: 1. No evidence of intracranial hemorrhage or mass effect. 2. No acute intracranial findings. Laboratory Results WBC 8.90 10^3/uL (3.29-11.43) 04/19/25 11:20 RBC 4.34 10^6/uL (3.85-5.65) 04/19/25 11:20 Hgb 11.10 g/dL (11.27-16.99) L 04/19/25 11:20 Hct 36.8 % (36-47) 04/19/25 11:20 MCV 84.8 fl (85-98) L 04/19/25 11:20 MCH 25.6 pg (27-33) L 04/19/25 11:20 MCHC 30.2 g/dL (30-55) 04/19/25 11:20 RDW 16.7 % (12.1-15.1) H 04/19/25 11:20 Plt Count 261 10^3/cmm (157-399) 04/19/25 11:20 MPV 9.7 fL (7.4-10.4) 04/19/25 11:20 Neut % (Auto) 67.1 % 04/19/25 11:20 Lymph % (Auto) 24.2 % 04/19/25 11:20 [place] % (Auto) 6.4 % 04/19/25 11:20 Eos % (Auto) 0.8 % 04/19/25 11:20 Baso % (Auto) 0.8 % 04/19/25 11:20 Neut # (Auto) 5.98 10^3/uL (1.8-7.7) 04/19/25 11:20 Lymph # (Auto) 2.2 10^3/uL (0.8-4.8) 04/19/25 11:20 [place] # (Auto) 0.6 10^3/uL (0.2-0.9) 04/19/25 11:20 Eos # (Auto) 0.1 10^3/uL (0.0-0.8) 04/19/25 11:20 Baso # (Auto) 0.1 10^3/uL (0.0-0.1) 04/19/25 11:20 Nucleated RBC % (auto) 0 % 04/19/25 11:20 Nucleated RBCs # 0.0 /100WBC 04/19/25 11:20 Sodium 142 mmol/L (136-145) 04/19/25 11:20 Potassium 3.3 mmol/L (3.5-5.1) L 04/19/25 11:20 Chloride 107 mmol/L (98-107) 04/19/25 11:20 Carbon Dioxide 20 mmol/L (22-29) L 04/19/25 11:20 Anion Gap 18.3 (5-19) 04/19/25 11:20 BUN 8 mg/dL (8-23) 04/19/25 11:20 Creatinine 0.7 mg/dL (0.5-0.9) 04/19/25 11:20 GFR Calculation Not Reportable 04/19/25 11:20 Glucose 105 mg/dL (65-115) 04/19/25 11:20 Calculated Osmolality 293 mOsm/kg (285-295) 04/19/25 11:20 Lactic Acid 2.1 mmol/L (0.5-2.2) 04/19/25 11:20 Lactic Acid (Sepsis) 1.2 mmol/L (0.5-2.2) 04/19/25 14:16 Calcium 8.3 mg/dL (8.5-10.5) L 04/19/25 11:20 Total Bilirubin 0.4 mg/dL (0.15-1.2) 04/19/25 11:20 AST 27 U/L (0-32) 04/19/25 11:20 ALT 25 U/L (0-33) 04/19/25 11:20 Alkaline Phosphatase 233 U/L (35-105) H 04/19/25 11:20 Troponin T Baseline 14 ng/L (0-10) H 04/19/25 11:20 Troponin T 120 Minute 13.49 ng/L (0-10) H 04/19/25 13:05 Delta Troponin T -0.51 ABS# (0-10) L 04/19/25 13:05 Total Protein 6.5 g/dL (6.6-8.7) L 04/19/25 11:20 Albumin 3.5 g/dL (3.5-5.2) 04/19/25 11:20 Globulin 3.0 g/dL (1.3-4.6) 04/19/25 11:20 All radiology interpretation(s) finalized by discharge Discharge Plan Discharge Patient Disposition: Home Clinical Impression: Mass of left lung, 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 acetaminophen 500 mg Tablet 500 mg PO Q6H PRN (Reason: Pain) ondansetron 4 mg tablet,disintegrating 4 mg PO Q8H PRN (Reason: nausea and vomiting) Qty: 10 0RF cephalexin 500 mg capsule 500 mg PO TID Discharge Orders: Discharge ED (Routine); Ordered 04/19/25 Ordered By: Ricky Hernandez Referrals: [facility] An[facility], [Primary Care Provider, Family Practice] Discharge Diet: Usual diet Discharge Activity: Increase activity as tolerated Patient Instructions: Opioid Safety, Pain Management Activity Restrictions/Additional Instructions: Thank you for choosing [facility] for your healthcare needs today. It is very important that you follow up as instructed or that you return to the Emergency Department should you have concerns or if your condition changes or worsens in any way. You were seen in the emergency room with complaints of weakness. In reviewing your chart noted you recently had scans of the chest abdomen pelvis that showed large lung mass with questionable lesions in the liver that are suspicious for metastasis. Per your report Dr. Hein is in the process of getting this further evaluated. You should follow through with this. When you first arrived your blood pressure was low but improved after IV fluids. Your laboratory tests are consistent with your known underlying diagnosis with the lung masses and liver mets. On this point believe you can be discharged home maintain regular fluid intake follow-up with Dr. Hein as scheduled. Print Language: Paraguayan Coding Level of Care Code ED Basting Cleaner for Marialuisa Freeman
--- NOTE | 2025-04-19 10:59 | CT_ITS ---
WS: [id number] CT HEAD TECHNIQUE: Noncontrast CT of the head obtained from the skullbase to the vertex. CLINICAL INFORMATION: Fall COMPARISON: 2023 DLP: 1004.[address] scans at [facility] use at least one of these dose optimization techniques: automated exposure control; mA and/or kV adjustment per patient size (includes targeted exams where dose is matched to clinical indication); or iterative reconstruction. FINDINGS: No evidence of intracranial hemorrhage or mass effect. Ventricular system and basal cisterns are patent. Moderate small vessel changes with moderate parenchymal volume loss. No extra-axial fluid collections. No evidence of mass or mass effect. Vascular calcification. Paranasal sinuses and mastoid air cells are well aerated. .Normal visualized soft tissues. CT/CT head wo con* [id number] IMPRESSION: 1. No evidence of intracranial hemorrhage or mass effect. 2. No acute intracranial findings.
[2025-04-19 11:15] VITALS: BP 114/56
[2025-04-19] MEDS: aspirin 81 mg Chew Tablet 324 MG PO (11:15)
[2025-04-19] MEDS: sodium chloride 0.9% 1,000 ML 999 ML IV (11:16)
[2025-04-19 11:30] VITALS: BP 138/66; PULSE 83; RESP 12; O2SAT 95
--- NOTE | 2025-04-19 11:30 | PC.PHAR ---
Pt has several other maintenance medications that family says have been discontinued. Pt is to only take Cephalexin 500mg tidx7d, Zofran 4mgodt q8hprn,Plavix 75mg daily, and protonix 40mg daily. Maintenace medications filled at [facility] are Atorvastatin 20mg daily 03/07/25 90ds Amlodipine 5mg daily 03/07/25 90 Prednisolone Acetate 1% 1drop os tid 02/15/25 90ds
[2025-04-19 11:50] LABS: Basophils # 0.1 10^3/uL (0.0-0.1); Basophils % 0.8 %; Eosinophils # 0.1 10^3/uL (0.0-0.8); Eosinophils % 0.8 %; Hematocrit 36.8 % (36-47); Lymphocytes # 2.2 10^3/uL (0.8-4.8); Lymphocytes % 24.2 %; Mean Corpuscular HGB Conc 30.2 g/dL (30-55); Mean Corpuscular Hemoglobin 25.6 pg (27-33); Mean Corpuscular Volume 84.8 fl (85-98); Mean Platelet Volume 9.7 fL (7.4-10.4); Monocytes # 0.6 10^3/uL (0.2-0.9); Monocytes % 6.4 %; Neutrophils # 5.98 10^3/uL (1.8-7.7); Neutrophils % 67.1 %; Nucleated Red Blood Cells % 0 %; Platelet Count 261 10^3/cmm (157-399); Red Blood Count 4.34 10^6/uL (3.85-5.65); Red Cell Distribution Width 16.7 % (12.1-15.1)
[2025-04-19 12:06] LABS: Alanine Aminotransferase 25 U/L (0-33); Albumin Level 3.5 g/dL (3.5-5.2); Alkaline Phosphatase 233 U/L (35-105); Anion Gap 18.3 (5-19); Aspartate Amino Transferase 27 U/L (0-32); Blood Urea Nitrogen 8 mg/dL (8-23); Calcium 8.3 mg/dL (8.5-10.5); Carbon Dioxide 20 mmol/L (22-29); Chloride 107 mmol/L (98-107); Creatinine Clr Calc Pharmacy 43.4821; Glucose 105 mg/dL (65-115); Osmolality Calculated 293 mOsm/kg (285-295); Potassium 3.3 mmol/L (3.5-5.1); Sodium 142 mmol/L (136-145); Total Bilirubin 0.4 mg/dL (0.15-1.2); Total Protein 6.5 g/dL (6.6-8.7)
[2025-04-19 12:09] LABS: Lactic Sepsis W/Reflex 2.1 mmol/L (0.5-2.2)
[2025-04-19 12:11] LABS: Troponin(5th) Baseline 14 ng/L (0-10)
--- NOTE | 2025-04-19 12:15 | ECG_ITS ---
[facility]: 2025-04-19 Pat Name: Sil Diaz Department: Room: Gender: Female Rate Inserter: : 1940 Requested By: Ricky Smith Order Number: [id number] Terry MD: Ashley Tenorio M.D. Measurements Intervals [place] Rate: 82 P: 54 [place]: 132 QRS: 40 QRSD: 97 T: 56 QT: 391 QTc: 457 Interpretive Statements SINUS RHYTHM Compared to ECG 04/19/2025 10:54:52 No significant changes Electronically Signed On 04-20-2025 18:25:38 CDT by Ashley Tenorio M.D. [email or web address]
[2025-04-19 13:00] VITALS: BP 131/65; PULSE 72; O2SAT 98
[2025-04-19 13:30] LABS: Reflex Lactate Order REFLEX LACTIC ORDERD
[2025-04-19 13:30] LABS: Troponin 5 2HR 13.49 ng/L (0-10)
[2025-04-19 13:32] LABS: Troponin 5 2HR Delta -0.51 ABS# (0-10)
[2025-04-19 14:34] VITALS: BP 139/74; PULSE 74; O2SAT 99
[2025-04-19 14:52] LABS: Lactic Acid level (Lactate) 1.2 mmol/L (0.5-2.2)
== END 2025-04-19 14:47 | disposition home or self-care (01) ==
PROVIDERS: Emergency Provider Family Medicine; PCP Family Medicine
DX: R91.8 Other nonspecific abnormal finding of lung field (principal); C78.7 Secondary malignant neoplasm of liver and intrahepatic bile duct; Z87.891 Personal history of nicotine dependence; Z86.73 Personal history of transient ischemic attack (TIA), and cerebral infarction without residual deficits; E78.5 Hyperlipidemia, unspecified; I10 Essential (primary) hypertension; Z79.02 Long term (current) use of antithrombotics/antiplatelets
CPT/HCPCS: 36415; 70450; 71045; 80053; 83605; 84484; 85025; 93005; 99285; J7030; J9999